=== PATIENT | female | born 1995 | race Caucasian/White ===

== ENCOUNTER 2020-02-18 09:45 | Outpatient (REF) | payer OTHER, SELFPAY ==
[2020-02-18 15:11] LABS: Alanine Aminotransferase 18 U/L (0-31); Albumin Level 4.6 g/dL (3.5-5.0); Alkaline Phosphatase 40 U/L (39-117); Anion Gap 12 (12-20); Aspartate Amino Transferase 13 U/L (5-31); Bilirubin Total 1.1 mg/dL (0.0-1.0); Blood Urea Nitrogen 13 mg/dL (9-16); Calcium 9.6 mg/dL (8.4-10.2); Carbon Dioxide 26 mmol/L (22-29); Chloride 107 mmol/L (96-108); Cholesterol 160 mg/dL; Estimated Glomerular Filt Rate > 60; Glucose Fasting 94 mg/dL (60-99); HDL Cholesterol 34 mg/dL; LDL Cholesterol Calculated 115 mg/dl; Potassium 4.6 mmol/l (3.3-5.1); Sodium 140 mmol/L (135-145); Total Protein 7.3 g/dL (6.5-8.0); Triglycerides 55 mg/dL
[2020-02-18 15:31] LABS: TSH reflex Free T4 0.66 mIU/mL (0.32-4.0)
[2020-02-18 15:47] LABS: Syphilis Screen Nonreactive (Nonreactive)
[2020-02-21 08:10] LABS: HBS Num1 15.69 mIU/mL (0-7.99); HBc Num1 0.07 S/CO (0.00-0.79); HBsAGNum1 0.22 S/CO (0.00-0.99); HIV AB/AG Nonreactive (Nonreactive); HIV Num 1 0.06 S/CO (0.00-0.99); Hepatitis B Core Antibody Nonreactive (Nonreactive); Hepatitis B Surface Antigen Negative (Negative); ~Hepatitis B Surface Antibody REACTIVE (Nonreactive)
[2020-02-21 08:13] LABS: ~Hepatitis C Antibody Nonreactive (Nonreactive)
[2020-02-21 12:09] LABS: TSpotTB POSITIVE
== END 2020-02-18 09:46 | disposition home or self-care (01) ==
LOC: HO.WFDLDS 09:45
PROVIDERS: PCP Family Medicine; Visit Provider Family Medicine
DX: Z00.00 Encounter for general adult medical examination without abnormal findings (principal); Z11.3 Encounter for screening for infections with a predominantly sexual mode of transmission; Z11.4 Encounter for screening for human immunodeficiency virus [HIV]; Z11.1 Encounter for screening for respiratory tuberculosis
CPT/HCPCS: 36415; 80053; 80061; 84443; 85025; 86481; 86704; 86706; 86780; 86803; 87340; 87389

== ENCOUNTER 2020-02-29 12:40 | Outpatient (REF) | payer OTHER, SELFPAY ==
--- NOTE | 2020-02-29 12:47 | XR_ITS ---
EXAMINATION: XR CHEST CLINICAL INFORMATION: Nonspecific reaction to cell mediated immunity COMPARISON: None TECHNIQUE: 2 views of the chest were obtained. FINDINGS: The cardiomediastinal silhouette is within normal limits. Cony are within normal limits. The lungs are well expanded. There is no focal consolidation, edema, or effusion. No pneumothorax. No acute osseous abnormality. IMPRESSION: No evidence of acute process.
--- NOTE | 2020-02-29 12:48 | XR_ITS ---
EXAMINATION: XR THORACIC SPINE: 3 VIEWS XR LUMBAR SPINE: 3 VIEWS CLINICAL INFORMATION: Back pain and scoliosis COMPARISON: None FINDINGS: No acute fracture or subluxation. Minimal broad C shaped dextroconvex curvature of the thoracolumbar spine centered at T12-L1. Vertebral body heights maintained. Disc spaces preserved. No significant degenerative changes. Sacroiliac joints are symmetric. There may be mild degenerative changes of the synovialized portions of the sacroiliac joints bilaterally. Paraspinal soft tissues unremarkable. IMPRESSION: No acute fracture or subluxation. Minimal broad C-shaped dextroconvex thoracolumbar curvature centered at T12-L1. No significant degenerative changes within the thoracic and lumbar spine. Mild bilateral sacroiliac arthrosis.
== END 2020-02-29 12:41 | disposition home or self-care (01) ==
LOC: HO.XRAY 12:40
PROVIDERS: PCP Family Medicine; Visit Provider Family Medicine
DX: M54.9 Dorsalgia, unspecified (principal); M41.9 Scoliosis, unspecified; R76.12 Nonspecific reaction to cell mediated immunity measurement of gamma interferon antigen response without active tuberculosis
CPT/HCPCS: 71046; 72072; 72100

== ENCOUNTER 2020-03-24 11:00 | Outpatient (RCR) | payer OTHER, SELFPAY | END 2020-06-15 09:49 | disposition other institution (70) | LOC: HO.PTWFD 11:00 | PROVIDERS: Visit Provider Family Medicine | DX: M54.9 Dorsalgia, unspecified (principal); M41.9 Scoliosis, unspecified | CPT/HCPCS: 97014; 97110; 97140; 97162 ==

== ENCOUNTER 2021-08-23 11:48 | Outpatient (REF) | payer OTHER, MEDICAID, SELFPAY ==
[2021-08-23 13:35] LABS: MANUAL DIFF FLAG NO
[2021-08-23 13:39] LABS: Basophils Absolute Auto 0.1 X10*3/uL (0.0-0.2); Basophils Percent Auto 0.7 % (0-2); Eosinophils Absolute Auto 0.2 X10*3/uL (0.0-0.4); Eosinophils Percent Auto 2.3 % (0-4); Hematocrit 40.9 % (37.0-47.0); Hemoglobin 13.7 g/dl (12.0-16.0); Imm Gran Abs Auto 0.02 X10*3/uL (0.00-0.03); Imm Gran Pct Auto 0.3 % (0.0-0.4); Lymphocytes Absolute Auto 2.9 X10*3/uL (1.2-4.9); Lymphocytes Percent Auto 40.1 % (20-40); Mean Corpuscular HGB Conc 33.5 g/dl (31.0-35.0); Mean Corpuscular Hemoglobin 30.2 pg (27.0-33.0); Mean Corpuscular Volume 90.1 fL (80.0-98.0); Mean Platelet Volume 10.7 fL (9.4-12.3); Monocytes Absolute Auto 0.5 X10*3/uL (0.1-1.2); Monocytes Percent Auto 6.7 % (2-11); Neutrophils Absolute Auto 3.6 x10*3/uL (2.0-8.3); Neutrophils Percent Auto 49.9 % (45-73); Platelet Count 324 X10*3/uL (160-400); Red Blood Count 4.54 X10*6/uL (4.20-5.50); White Blood Count 7.3 X10*3/uL (4.8-10.8)
[2021-08-23 13:55] LABS: HCG Quantitative < 2 mIU/mL
[2021-08-23 14:02] LABS: Alanine Aminotransferase 13 U/L (0-31); Albumin Level 4.5 g/dL (3.5-5.0); Alkaline Phosphatase 47 U/L (39-117); Anion Gap 14 (12-20); Aspartate Amino Transferase 13 U/L (5-31); Bilirubin Total 0.8 mg/dL (0.0-1.0); Blood Urea Nitrogen 9 mg/dL (9-16); Carbon Dioxide 24 mmol/L (22-29); Chloride 104 mmol/L (96-108); Estimated Glomerular Filt Rate > 60; Glucose Fasting 89 mg/dL (60-99); Potassium 4.4 mmol/L (3.3-5.1); Sodium 138 mmol/L (135-145); Total Protein 7.4 g/dL (6.5-8.0)
[2021-08-23 14:42] LABS: Appearance Urine CLEAR; Color Urine YELLOW; Glucose Urine UA NEG (NEG); Leukocyte Esterase Urine NEG (NEG); Nitrite Urine NEG (NEG); PH 6.5 (5.0-8.0); Urine Blood TRACE (NEG); Urine Ketones NEG (NEG); Urine Protein NEG (NEG-TRACE)
[2021-08-23 14:56] LABS: Mucus Urine TRACE /LPF; Squamous Epithelial Cell Urine TRACE /LPF; WBC Urine 0 /HPF (0-4)
[2021-08-23 15:08] LABS: INTERNATIONAL NORM RATIO 1.1 (0.9-1.1); Prothrombin Time 12.4 SEC (9.9-13.0)
[2021-08-23 15:10] LABS: Partial Thromboplastin Time 35.8 SEC (24.1-38.0)
[2021-08-24 08:22] LABS: HIV AB/AG Nonreactive (Nonreactive); HIV Num 1 0.06 S/CO (0.00-0.99)
== END 2021-08-23 11:49 | disposition home or self-care (01) ==
LOC: HO.WFDLDS 11:48
PROVIDERS: Visit Provider Hospitalist
DX: Z01.818 Encounter for other preprocedural examination (principal); Z11.4 Encounter for screening for human immunodeficiency virus [HIV]
CPT/HCPCS: 36415; 80053; 81001; 81003; 84702; 85025; 85610; 85730; 87389

== ENCOUNTER 2022-09-27 10:27 | Outpatient (REF) | payer OTHER, SELFPAY ==
[2022-09-27 13:59] LABS: Appearance Urine Cloudy; Color Urine Yellow; Glucose Urine UA Negative (Negative); Leukocyte Esterase Urine Moderate (2+) (Negative); Nitrite Urine Negative (Negative); PH 5.5 (5.0-9.0); UMIC TRIGGER UACC YES; Urine Blood Negative (Negative); Urine Ketones Negative (Negative); Urine Protein Negative (Neg-Trace)
[2022-09-27 14:03] LABS: Bacteria Urine 3+ (None Seen); Hyaline Casts Urine 0-2 /LPF (0-2); UACC Culture Trigger YES; WBC Urine 21-50 /HPF (0-5)
== END 2022-09-27 10:28 | disposition home or self-care (01) ==
LOC: HO.LAB 10:27
PROVIDERS: Visit Provider Nurse Practitioner Family
DX: R39.9 Unspecified symptoms and signs involving the genitourinary system (principal)
CPT/HCPCS: 81001; 87086; 87088; 87186

== ENCOUNTER 2023-03-31 09:58 | Outpatient (AMB) | payer OTHER, SELFPAY ==
--- NOTE | 2023-03-31 10:09 | A.OFFPC_ITS ---
Vital Signs 03/31/23 10:10 Height 5 ft 1 in Weight 142 lb 6 oz BMI 26.9 BP 100/64 Blood Pressure Location Lt brachial Position Sitting Respiration 12 Pulse 83 Pulse Source Pulse Oximeter Pulse Oximetry (%) 98 Oxygen Delivery Method Room Air Intake Visit Reasons: discuss asthma Intake Note: Patient is here for her asthma. She needs refills on her inhalers. Patient would like to talk about nebulizer, and would like a flu shot today. Allergies No Known Allergies Allergy (Verified 03/31/23 10:23) Medication List - Last Reconciled 03/31/23 by Sandee Alvarado CNP albuterol sulfate 90 mcg/actuation (Ventolin HFA) 2 puffs inhalation Q4-6H PRN 30 days albuterol sulfate 90 mcg/actuation (ProAir HFA) 1 puff inhalation QID PRN citalopram 30 mg (1.5 x 20 mg) PO DAILY 30 days clonazepam 0.5 mg PO DAILY PRN 30 days cyclobenzaprine 10 mg PO BID PRN 30 days fluticasone propionate 110 mcg/actuation (Flovent HFA) 1 puff inhalation BID phenazopyridine (Pyridium) 100 mg PO TID PRN 2 days Tobacco use date assessed: 03/31/23 Dental Screening Dental Screen Date: 03/31/23 Did you have a dental visit in the last 12 months?: Yes Did you have a dental problem in the last 6 months where you did not have access to dental care?: No Was dental information given to patient?: Patient has dentist HPI HPI Comments History of Present Illness Details 27-year-old female presents for asthma f low-up. She requests refills on all of her inhalers. She also requests an order for albuterol via nebulizer treatment. She notes that she ran out of both proair and flovent inhalers for 4 weeks. Her asthma symptoms worsened and she was evaluated [facility] ED 3 days ago, was given an albuterol nebulizer treatment and prescribed proair. She notes that her symptoms have significantly improved since she started using the inhaler. He also notes that she her asthma also worsened for 2 week in January and she was out of work for 2 weeks. 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 She offers no complaints and denies acute symptoms this time. She requests the flu vaccine. 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 Father No problems noted. Social History Housing: Apartment Alcohol intake: never Patient Tobacco Use Status: Never used Tobacco e-Cigarette/Vaping Use: Never Used Second Hand Smoke Exposure: No service: No Current occupational status: employed and unemployed Current occupational exposures/hazards: No Cognitive needs: No Hearing needs: No Vision needs: No Questionnaire Thrive Questionnaire Date Thrive assessed: 09/27/22 LAUREN-7 AMB Questionnaire LAUREN-7 Date LAUREN - 7 assessed: 09/27/22 Source: Developed by Drs. Ross Rojas, Ora Granda, Fabián Wells and colleagues, with an educational lev from [employer]. ACT Questionnaire In the past 4 weeks, how much of the time did your asthma keep you from getting as much done at work, school or at home?: Some of the time During the past 4 weeks, how often have you had shortness of breath?: More than once a day During the past 4 weeks, how often did your asthma symptoms wake you up at night or earlier than usual in the morning?: Once a week During the past 4 weeks, how often have you had to use your rescue inhaler or nebulizer medication?: Once a week or less (used 3 times in the past 4 weeks.) How would you rate your asthma control during the past 4 weeks?: Somewhat controlled ACT Interpretation: Positive Score: 14 Review of Systems Const Details: Const Denies chills, Denies fatigue, Denies fever(s), Denies headache(s) and Denies weakness ENT Denies dizziness and Denies headache(s) Card Denies chest pain, Denies lightheadedness, Denies dyspnea and Denies other (Palpitations) Resp Denies cough, Denies dyspnea, Denies wheezing and Denies other ( shortness of breath) GI Denies abdominal pain, Denies melena, Denies hematochezia, Denies change in bowel habits, Denies dyspepsia and Denies nausea Denies hematuria and Denies dysuria Musc Denies abnormal gait, Denies myalgias, Denies arthralgias, Denies numbness and Denies tingling Skin/Breast Denies rash, Denies unusual bruising and Denies wounds Neuro Denies abnormal gait, Denies dizziness, Denies headache(s), Denies memory loss, Denies numbness, Denies Sensory deficit (Neuro), Denies tingling and Denies weakness Psych Denies anxiety, Denies depression, Denies memory loss Endo Denies cold intolerance, Denies fatigue, Denies heat intolerance, Denies polydipsia and Denies polyuria Aller/Immun Denies wheezing Physical exam (Primary Care) Vital Signs: Last Vital Signs Pulse 83 03/31/23 10:10 Resp 12 03/31/23 10:10 BP 100/64 03/31/23 10:10 Pulse Ox 98 03/31/23 10:10 Oxygen Delivery Method Room Air 03/31/23 10:10 BMI result Body Mass Index 26.9 Tobacco/Smoking Status: Tobacco use Status Tobacco use date assessed 03/31/23 03/31/23 10:22 Patient Tobacco Use Status Never used Tobacco 03/31/23 10:22 e-Cigarette/Vaping Use Never Used 03/31/23 10:22 Thrive Assessment: Date of Thrive Assessment Date Thrive assessed 09/27/22 03/31/23 10:22 Const Other: General: no acute distress and well developed Nutritional Appearance: well nourished Orientation/consciousness: patient oriented x3 HENDC Head: Yes normocephalic and Yes atraumatic Eyes General: appearance normal, both eyes and all related structures Pupils: Equal, round and reactive pupils present EOM: EOMs intact bilaterally Resp Effort & Inspection: normal respiratory effort Auscultation: clear to auscultation bilaterally Cardio Rate: regular rate Rhythm: regular rhythm Heart sounds: S1 normal heart sound present, S2 normal heart sound present, no gallops, no murmurs and no rubs GI Palpation (GI): No Abdominal aortic bruit present, Soft to palpation, nontender, No hepatosplenomegaly present and No Rebound tenderness present Auscultation: normal bowel sounds General: Yes no CVA tenderness Back/Spine/Pelvis Back: no CVA tenderness Cervical Spine: cervical ROM normal and No Cervical spine tenderness Thoracic/Lumbar Spine: thoraco-lumbar ROM normal, No pain with thoraco-lumbar ROM, No thoracic spinal tenderness and No lumbar spinal tenderness Extrem General: Yes normal to inspection, No edema and No calf tenderness Skin General: warm and dry. Normal skin color. Normal skin turgor Neuro General: patient oriented x3, gait normal and no focal neuro deficit Cranial nerves: Yes Equal, round and reactive pupils present Cognition (Neuro): normal cognition Gait exam (Neuro): Normal gait present Sensory Exam: No Sensory deficit (Neuro) Psych Appearance: grossly normal Affect: normal affect Attitude: cooperative Thought process: Normal thought process present Assessment and Plan Assessment & Plan (1) Moderate persistent asthma: Code(s): J45.40 - Moderate persistent asthma, uncomplicated Plan: Reports recent asthma exacerbation for which she was treated at [facility] ED. She received albuterol nebulizer treatment and was prescribed ProAir. She notes that her symptoms are improving. ACT score is 14, indicates poorly control asthma ProAir and Flovent refilled. Albuterol ordered for nebulizer treatment. Advised to use inhalers and nebulizer treatment as prescribed Work note given Follow-up with PCP in 1-2 months Return sooner with new or worsening symptoms Verbalized understanding and agreed with treatment plan The nurse administered the flu vaccine to the patient Orders: Orders Influenza [id number] Immunization Today Z23 - Encounter for immunization Medications: New flu vacc [id number] 6mos up(PF) 0.5 mL IM ONCE 0.5 mL 0RF Z23 - Encounter for immunization albuterol sulfate 2.5 mg (3 mL) inhalation Q4-6H PRN 90 mL 0RF shortness of breath or wheezing nebulizers As directed 1 ea 0RF Refilled albuterol sulfate 90 mcg/actuation (ProAir HFA) 1 puff inhalation QID PRN 18 grams 4RF shortness of breath or wheezing fluticasone propionate 110 mcg/actuation (Flovent HFA) administer with spacer 1 puff inhalation BID 12 grams 3RF Discontinued albuterol sulfate 90 mcg/actuation (Ventolin HFA) Discontinued Reason: Doctor's Order 2 puffs inhalation Q4-6H 30 days PRN 8.5 grams 4RF shortness of breath or wheezing Coding Level of Care Code Est Pt Level 4 (84341) Diagnoses Moderate persistent asthma J45.40
[2023-03-31 10:10] VITALS: BP 100/64; PULSE 83; RESP 12; O2SAT 98; BMI 26.9
== END 2023-03-31 10:57 | disposition home or self-care (01) ==
PROVIDERS: PCP Family Medicine; Visit Provider Nurse Practitioner Family
DX: Z23 Encounter for immunization (principal); J45.40 Moderate persistent asthma, uncomplicated
CPT/HCPCS: 90471; 90686; 99214

== ENCOUNTER 2023-06-10 10:17 | Outpatient (AMB) | payer OTHER, SELFPAY ==
[2023-06-10 10:26] VITALS: BP 102/70; PULSE 102; RESP 13; O2SAT 98; BMI 28.0
--- NOTE | 2023-06-10 10:26 | MHC.PC.OV ---
Vital Signs 06/10/23 10:26 Height 5 ft 1 in Weight 148 lb BMI 28.0 BP 102/70 Blood Pressure Location Rt brachial Position Sitting Respiration 13 Pulse 102 H Pulse Source Pulse Oximeter Pulse Oximetry (%) 98 Oxygen Delivery Method Room Air Intake Visit Reasons: Anxiety/med discussion Intake Note: Patient is here to discuss anxiety medication. Patient reports she has vivid dreams about work and is often stressed by her job. Patient reports this has been ongoing since January 2023. Herb Counselor Required: No Accompanied by: Self / Same As Patient Allergies No Known Allergies Allergy (Verified 06/10/23 10:52) Medication List - Last Reconciled 06/10/23 by Cary Swift, [facility]- albuterol sulfate 90 mcg/actuation (ProAir HFA) 1 puff inhalation QID PRN albuterol sulfate 2.5 mg (3 mL) inhalation Q4-6H PRN citalopram 30 mg (1.5 x 20 mg) PO DAILY 30 days clonazepam 0.5 mg PO DAILY PRN 30 days cyclobenzaprine 10 mg PO BID PRN 30 days fluticasone propionate 110 mcg/actuation (Flovent HFA) 1 puff inhalation BID nebulizers As directed phenazopyridine (Pyridium) 100 mg PO TID PRN 2 days Tobacco use date assessed: 06/10/23 HPI HPI Comments History of Present Illness Details Here today with complaints of anxiety and uncontrolled asthma. Stressful job. Feels drained mentally. 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 Was taking Celexa 30 mg in the past, ran out of refills a few weeks ago. Admits it was helping her sleep, but does not help w/ the nightmares. Sister reports hearing her shout in sleep. Not active w/ counselor at this time. However she is interested. She also admits to drinking wine to help her go to sleep and to help deal with her emotions. She has stopped doing this as she knows it is not healthy. Denies SI and HI. Asthma - feels using Albuterol more. now 2x/day. Thinks stress is triggering her asthma. Reports she is taking her daily maintenance inhaler as directed. Has good benefit from albuterol. Using nebulizer infrequently. 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 Father No problems noted. Brother Substance use disorder Mental health disorder Social History Household Members: Children Household Members Other:: 1 son Both parents involved: No Caregiver staying overnight: No Housing: Apartment Are you a primary hospice care transitions coordinator to a significant other at home: No Do you presently have visiting nurse or other home services: No 75 years or older and lives alone: No Alcohol intake: never Patient Tobacco Use Status: Never used Tobacco e-Cigarette/Vaping Use: Never Used Second Hand Smoke Exposure: No Use of substances other than those prescribed or required for medical reasons: No Have you been hit, kicked, punched, or otherwise hurt by someone within the past year? 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 1. Little interest or pleasure in doing things: nearly every day 2. Feeling down, depressed, or hopeless: several days 3. Trouble falling or staying asleep, or sleeping too much: nearly every day 4. Feeling tired or having little energy: nearly every day 5. Poor appetite or overeating: several days 6. Feeling bad about yourself - or that you are a failure or have let yourself or your family down: not at all 7. Trouble concentrating on things, such as reading the newspaper or watching television: nearly every day 8. Moving or speaking so slowly that other people could have noticed. Or the opposite - being so fidgety or restless that you have been moving around a lot more than usual: not at all 9. Thoughts that you would be better off or of hurting yourself in some way: not at all Total score: 14 Depression Screening Interpretation: Positive Depression Screening Done: Yes 43504 - PHQ-9 Billing: Yes Source: Developed by Drs. Ross Rojas, Ora Granda, Fabián Wells and colleagues, with an educational lev from [employer]. Thrive Questionnaire Date Thrive assessed: 06/10/23 I am a: Patient What is your living situation today?: I have a steady place to live Within the past 12 months, did the food you bought not last and you didn't have the money to get more?: Never true Within the past 12 months, did you worry whether your food would run out before you got money to buy more?: Never true Do you have trouble paying for medicines?: No Do you have trouble getting transportation to medical appointments?: No Do you have trouble paying your heating and electricity bill?: No Do you have trouble taking care of your child, family member or friend?: No Do you have trouble with day-to-day activities such as bathing, preparing meals, shopping, managing finances, etc.?: No Are you currently unemployed and looking for a job?: No Are you interested in more education?: No Please select the resources that you would like help with: None Currently or been in a relationship where the following occur: no concerns reported THRIVE Score: 0 AUDIT C Alcohol Use Questionnaire (AUDIT-C) 1. How often do you have a drink containing alcohol?: Never 3. How often do you have six or more drinks on one occasion?: Never Total Score: 0 LAUREN-7 AMB Questionnaire LAUREN-7 Date LAUREN - 7 assessed: 06/10/23 Feeling nervous, anxious, or on edge: 3 = Nearly every day Not being able to stop or control worryin = Not at all Worrying too much about different things: 3 = Nearly every day Trouble relaxin = Nearly every day Being so restless that it is hard to sit still: 3 = Nearly every day Becoming easily annoyed or irritable: 3 = Nearly every day Feeling afraid as if something awful might happen: 0 = Not at all Total LAUREN-7 score (0-4 normal; 5-9 mild; 10-14 moderate; 15-21 severe): 15 Source: Developed by Drs. Ross Rojas, Ora Granda, Fabián Wells and colleagues, with an educational lev from [employer]. LAUREN-7 Assessment Billing LAUREN-7 Assessment Tool: LAUREN-7 Assessment 41966 ACT Questionnaire In the past 4 weeks, how much of the time did your asthma keep you from getting as much done at work, school or at home?: Most of the time During the past 4 weeks, how often have you had shortness of breath?: More than once a day During the past 4 weeks, how often did your asthma symptoms wake you up at night or earlier than usual in the morning?: 2-3 nights a week During the past 4 weeks, how often have you had to use your rescue inhaler or nebulizer medication?: 1-2 times a week How would you rate your asthma control during the past 4 weeks?: Somewhat controlled ACT Interpretation: Positive Score: 10 Review of Systems Const All systems reviewed & are unremarkable except as noted in HPI and below Physical exam (Primary Care) Vital Signs: Last Vital Signs Pulse 102 H 06/10/23 10:26 Resp 13 06/10/23 10:26 BP 102/70 06/10/23 10:26 Pulse Ox 98 06/10/23 10:26 Oxygen Delivery Method Room Air 06/10/23 10:26 BMI result Body Mass Index 28.0 Tobacco/Smoking Status: Tobacco use Status Tobacco use date assessed 06/10/23 06/10/23 10:33 Patient Tobacco Use Status Never used Tobacco 06/10/23 10:35 e-Cigarette/Vaping Use Never Used 06/10/23 10:35 PHQ-9: PHQ-9 Score PHQ-9: Total score 14 06/10/23 10:33 Depression Screening Interpretation: Positive Thrive Assessment: Date of Thrive Assessment Date Thrive assessed 06/10/23 06/10/23 10:37 Currently or been in a relationship where the following occur: no concerns reported Const Other: awake alert cooperative LS CTAB RRR Mood and affect appropriate for situation, future oriented. Assessment and Plan Assessment & Plan (1) Depression with anxiety: Code(s): F41.8 - Other specified anxiety disorders (2) Moderate persistent asthma: Code(s): J45.40 - Moderate persistent asthma, uncomplicated Qualifiers: Asthma complication type: uncomplicated Qualified Code(s): J45.40 - Moderate persistent asthma, uncomplicated Plan She is interested in seeking a community counselor. Nurse navigator referral placed. I have also encouraged her to work with her employer's [employer] as this may be helpful in regards to the stressful situations at work. I have restarted her on Celexa 30 mg which was her previous dosing that she said she tolerated well without side effects. In addition I have prescribed cyproheptadine to help with her sleep and nightmares. Starting with a 4 mg dose but can up titrate to 8 mg if necessary. This medication should have low side effect profile for the patient. I have advised for her follow-up in 4 weeks to see how effective the medication has been for her. In regards to her asthma despite the ACT score of 10 I do not think her asthma is as uncontrolled as she reports. I do think she has periods of hyperventilation in the setting of stress and anxiety. When mentioned this to her she agrees. Therefore at this time I think that she should continue her maintenance inhaler and p.r.n. use of albuterol. Educated that albuterol may increase anxiety symptoms therefore she would only use when she really feels her asthma is flaring. In the 4 week follow-up the asthma should be reviewed again. Total time spent caring for the patient today was 60 minutes. This includes time spent before the visit reviewing the chart, time spent during the visit, and time spent after the visit on documentation Orders: Referrals Nurse Navigator Referral F41.8 - Other specified anxiety disorders Medications: New cyproheptadine 4 mg PO BEDTIME 30 days PRN 30 tabs 1RF insomnia and nightmares Refilled citalopram 30 mg (1.5 x 20 mg) PO DAILY 30 days 45 tabs 1RF Coding Level of Care Code Est Pt Level 5 (12003) Diagnoses Depression with anxiety F41.8 Moderate persistent asthma without complication J45.40 Asthma complication type: uncomplicated Additional Codes LAUREN-7 Assessment Billing - LAUREN-7 Assessment Tool: LAUREN-7 Assessment 22793 ([id number])
== END 2023-06-10 12:57 | disposition home or self-care (01) ==
PROVIDERS: PCP Family Medicine; Visit Provider Nurse Practitioner Family
DX: J45.40 Moderate persistent asthma, uncomplicated (principal); F41.8 Other specified anxiety disorders
CPT/HCPCS: 96127; 99215

== ENCOUNTER 2023-08-19 11:17 | Outpatient (AMB) | payer OTHER, SELFPAY ==
[2023-08-19 11:35] VITALS: BP 108/64; PULSE 78; RESP 13; TEMP 36.4; O2SAT 99; BMI 27.2
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
== END 2023-08-19 12:45 | disposition home or self-care (01) ==
PROVIDERS: PCP Family Medicine; Visit Provider Nurse Practitioner Family
DX: F41.8 Other specified anxiety disorders (principal)
CPT/HCPCS: 96127; 99214

== ENCOUNTER 2023-08-29 09:42 | Outpatient (AMB) | payer OTHER, SELFPAY ==
[2023-08-29 09:50] VITALS: BMI 26.8
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
== END 2023-08-29 11:21 | disposition home or self-care (01) ==
PROVIDERS: PCP Family Medicine; Visit Provider Family Medicine
DX: F41.8 Other specified anxiety disorders (principal)
CPT/HCPCS: 96127; 99213

== ENCOUNTER 2023-10-14 10:22 | Outpatient (AMB) | payer OTHER, SELFPAY ==
[2023-10-14 10:42] VITALS: BP 112/72; PULSE 85; O2SAT 99; BMI 27.7
--- NOTE | 2023-10-14 10:42 | A.OFFPC_ITS ---
Vital Signs 10/14/23 10:42 Height 5 ft 1 in Weight 146 lb 8 oz BMI 27.7 BP 112/72 Blood Pressure Location Lt brachial Position Sitting Pulse 85 Pulse Source Pulse Oximeter Pulse Oximetry (%) 99 Oxygen Delivery Method Room Air Intake Visit Reasons: 6 week f/u anxiety Intake Note: Patient is here to follow up on anxiety today. Allergies No Known Allergies Allergy (Verified 10/14/23 10:44) Medication List - Last Reconciled 10/14/23 by Devaughn Jewell MD albuterol sulfate 90 mcg/actuation (ProAir HFA) 1 puff inhalation QID PRN albuterol sulfate 2.5 mg (3 mL) inhalation Q4-6H PRN buspirone 7.5 mg PO BID 30 days citalopram 40 mg PO DAILY 30 days fluticasone propionate 110 mcg/actuation (Flovent HFA) 1 puff inhalation BID nebulizers As directed Tobacco use date assessed: 10/14/23 Dental Screening Dental Screen Date: 08/19/23 HPI 6 week f/u anxiety HPI Details 28 y/o female presents to f/u anxiety/de pression. Had worsened depression/anxiety since 2022 due to work environment and unsafe work environment. Had recommended a 2 month leave of absence for therapy and for her meds to continue working. PHQ-9 11, LAUREN-7 21 today. She reports she does not feel capable going back to work. 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 Father No problems noted. 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 1. Little interest or pleasure in doing things: several days 2. Feeling down, depressed, or hopeless: several days 3. Trouble falling or staying asleep, or sleeping too much: not at all 4. Feeling tired or having little energy: several days 5. Poor appetite or overeating: several days 6. Feeling bad about yourself - or that you are a failure or have let yourself or your family down: several days 7. Trouble concentrating on things, such as reading the newspaper or watching television: nearly every day 8. Moving or speaking so slowly that other people could have noticed. Or the opposite - being so fidgety or restless that you have been moving around a lot more than usual: nearly every day 9. Thoughts that you would be better off or of hurting yourself in some way: not at all Total score: 11 Depression Screening Interpretation: Positive Depression Screening Done: Yes 75990 - PHQ-9 Billing: Yes Source: Developed by Drs. Ross Rojas, Ora Granda, Fabián Wells and colleagues, with an educational lev from [employer]. Thrive Questionnaire Date Thrive assessed: 06/10/23 LAUREN-7 AMB Questionnaire LAUREN-7 Date LAUREN - 7 assessed: 10/14/23 Feeling nervous, anxious, or on edge: 3 = Nearly every day Not being able to stop or control worryin = Nearly every day Worrying too much about different things: 3 = Nearly every day Trouble relaxin = Nearly every day Being so restless that it is hard to sit still: 3 = Nearly every day Becoming easily annoyed or irritable: 3 = Nearly every day Feeling afraid as if something awful might happen: 3 = Nearly every day Total LAUREN-7 score (0-4 normal; 5-9 mild; 10-14 moderate; 15-21 severe): 21 Source: Developed by Drs. Ross Rojas, Ora Granda, Fabián Wells and colleagues, with an educational lev from [employer]. LAUREN-7 Assessment Billing LAUREN-7 Assessment Tool: LAUREN-7 Assessment 54869 Review of Systems Const Denies chills, Denies fatigue, Denies fever(s), Denies headache(s) and Denies weakness ENT Denies dizziness and Denies headache(s) Card Denies dyspnea Resp Denies cough, Denies dyspnea, Denies wheezing and Denies other (shortness of breath) Musc Denies numbness and Denies tingling Neuro Denies dizziness, Denies headache(s), Denies numbness, Denies tingling and Denies weakness Psych Reports anxiety and Reports depression Endo Denies fatigue Aller/Immun Denies wheezing Physical exam (Primary Care) Vital Signs: Last Vital Signs Pulse 85 10/14/23 10:42 BP 112/72 10/14/23 10:42 Pulse Ox 99 10/14/23 10:42 Oxygen Delivery Method Room Air 10/14/23 10:42 BMI result Body Mass Index 27.7 Tobacco/Smoking Status: Tobacco use Status Tobacco use date assessed 10/14/23 10/14/23 10:57 Patient Tobacco Use Status Never used Tobacco 10/14/23 10:46 e-Cigarette/Vaping Use Never Used 10/14/23 10:46 PHQ-9: PHQ-9 Score PHQ-9: Total score 11 10/14/23 11:24 Depression Screening Interpretation: Positive Thrive Assessment: Date of Thrive Assessment Date Thrive assessed 06/10/23 10/14/23 10:46 Const General: well developed; No acute distress Nutritional Appearance: well nourished Orientation/consciousness: patient oriented x3 HENMT Head: Yes normocephalic and Yes atraumatic Eyes General: appearance normal, both eyes and all related structures Pupils: Equal, round and reactive pupils present EOM: EOMs intact bilaterally Resp Effort & Inspection: normal respiratory effort Neuro General: patient oriented x3 and gait normal Cranial nerves: Yes Equal, round and reactive pupils present Psych Affect: normal affect Assessment and Plan Assessment & Plan (1) Depression with anxiety: Code(s): F41.8 - Other specified anxiety disorders Plan: Prior?acu te?adjustment?disorder?at?the?passing?of?her?brother?and?ongoing?depression?seco ndary?to?this. Also?rather?severe?anxiety?due?to?poor?support?systems?at?work?and?being?threate axel?by?1?of?her?clients. Still?has?ongoing?difficulty?with?sleep?and?feeling?safe. She?is?currently?on?citalopram?and?buspirone I?had?referred?her?for?therapy?but?she?has?not?yet?gotten?an?appointment. I?had?given?her?6?week s?off?from?work?to?work?on?her?mental?health?and?use?her?medications. She?is?still?having?issues?with?the?above?symptoms. Mini-mental?status?exam?today?scored?24/30 - difficulty?with?sustained?attenti on?and?focus.??Memory?was?okay. She?will?continue?medication?as?prescribed I?have?asked?the?nurse?navigator?to?see?her?today?in?tried?help?her?get?a?therap ist?as?I feel?that?this?is?a?necessary?part?of?her?treatment. Will?keep?her?out?of?work?another?2?months?to?see?if?therapy?with?medication?can ?resolve?enough?of?her?symptoms?to?get?her?back?to?work?in?her?current?capacity. However,?we?also?disc ussed?that?if?she?is?unable?to?return?to?work?in?her?current?capacity,?she?may?n eed?to?find?another?job.??Patient?understands. Will?fill?out?paperwork?and?give?her?a?letter?to?remain?out?of?work?thro ug?November??with?tentative?return?to?work?date?of?November?. Will?try?to?follow-up?with?her?in?mid?November. Coding Level of Care Code Est Pt Level 3 (35924) Diagnoses Depression with anxiety F41.8 Additional Codes LAUREN-7 Assessment Billing - LAUREN-7 Assessment Tool: LAUREN-7 Assessment 29962 ([id number])
== END 2023-10-14 12:16 | disposition home or self-care (01) ==
PROVIDERS: PCP Family Medicine; Visit Provider Family Medicine
DX: F41.8 Other specified anxiety disorders (principal)
CPT/HCPCS: 96127; 99213

== ENCOUNTER 2023-11-19 12:21 | Outpatient (AMB) | payer OTHER, SELFPAY ==
--- NOTE | 2023-11-19 12:25 | A.OFFPC_ITS ---
Vital Signs 11/19/23 12:36 Weight 145 lb BP 94/60 Blood Pressure Location Rt brachial Position Sitting Respiration 16 Pulse 86 Pulse Source Pulse Oximeter Temp 98.1 F Temp Source Temporal Artery Scan Pulse Oximetry (%) 98 Oxygen Delivery Method Room Air Intake Visit Reasons: Anxiety & Depression Intake Note: patient here follow up for anxiety and depression and want to check on FMLA paperwork. Senior Director Creative Services Required: No Is last menstrual period known: Yes Last menstrual period: 12/11/23 Post menopausal: No Patient : No Allergies No Known Allergies Allergy (Verified 11/19/23 13:04) Medication List - Last Reconciled 11/19/23 by Cary Swift, MANAGER CREAT[employer] SERVICES- albuterol sulfate 90 mcg/actuation (ProAir HFA) 1 puff inhalation QID PRN albuterol sulfate 2.5 mg (3 mL) inhalation Q4-6H PRN buspirone 7.5 mg PO BID 30 days citalopram 40 mg PO DAILY 30 days fluticasone propionate 110 mcg/actuation (Flovent HFA) 1 puff inhalation BID nebulizers As directed Tobacco use date assessed: 10/14/23 Dental Screening Dental Screen Date: 08/19/23 HPI HPI Comments History of Present Illness Details Prior acute adjustment disorder at the passing of her brother and ongoing depression secondary to this. Also rather severe anxiety due to poor support systems at work and being threatened by 1 of her clients. 28-year-old female here today for follow up on anxiety and depression. Currently on a medical leave from her job. Last PCP viist 10/14/23 reviewed She is here today as documentation for her leave needs to be submitted. Reviewed this with her today. There is a document in her chart from the [facility] requesting documentation for the month of September. I have asked the staff to fax the requested information immediately. She also asked for a letter for an emotional support animal. Reports that she lives in a rental property. Spoke to the property management intern who reports she just needs a letter stating that it would be beneficial for her. This letter was provided to her today. She continues to have triggers for her anxiety and continues to feel like she is not able to return to work. She reports tolerance and compliance with the medications. 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 Father No problems noted. Brother Substance use disorder Mental health disorder Social History Household Members: Children Household Members Other:: 1 son Both parents involved: No Caregiver staying overnight: No Housing: Apartment Are you a primary menagerie caretaker to a significant other at home: No Do you presently have visiting nurse or other home services: No 75 years or older and lives alone: No Alcohol intake: never Patient Tobacco Use Status: Never used Tobacco e-Cigarette/Vaping Use: Never Used Second Hand Smoke Exposure: No Patient : No service: No Current occupational status: employed Current occupation: [employer] Current occupational exposures/hazards: No Sexual orientation: Straight/Heterosexual Gender identity: Female Cognitive needs: No (Forgetful) Hearing needs: No Vision needs: No Female Reproductive History Menstrual Date of last menstrual period: 12/11/23 Questionnaire PHQ-9 Over the last 2 weeks, how often have you been bothered by any of the following problems? 1. Little interest or pleasure in doing things: nearly every day 2. Feeling down, depressed, or hopeless: nearly every day 3. Trouble falling or staying asleep, or sleeping too much: nearly every day 4. Feeling tired or having little energy: nearly every day 5. Poor appetite or overeating: nearly every day 6. Feeling bad about yourself - or that you are a failure or have let yourself or your family down: nearly every day 7. Trouble concentrating on things, such as reading the newspaper or watching television: several days 8. Moving or speaking so slowly that other people could have noticed. Or the opposite - being so fidgety or restless that you have been moving around a lot more than usual: not at all 9. Thoughts that you would be better off or of hurting yourself in some way: not at all Total score: 19 37655 - PHQ-9 Billing: Yes Source: Developed by Drs. Ross Rojas, Ora Granda, Fabián Wells and colleagues, with an educational lev from [employer]. Thrive Questionnaire Date Thrive assessed: 06/10/23 LAUREN-7 AMB Questionnaire LAUREN-7 Date LAUREN - 7 assessed: 11/19/23 Feeling nervous, anxious, or on edge: 3 = Nearly every day Not being able to stop or control worryin = Nearly every day Worrying too much about different things: 3 = Nearly every day Trouble relaxin = Nearly every day Being so restless that it is hard to sit still: 1 = Several days Becoming easily annoyed or irritable: 3 = Nearly every day Feeling afraid as if something awful might happen: 3 = Nearly every day Total LAUREN-7 score (0-4 normal; 5-9 mild; 10-14 moderate; 15-21 severe): 19 Source: Developed by Drs. Ross Rojas, Ora Granda, Fabián Wells and colleagues, with an educational lev from [employer]. LAUREN-7 Assessment Billing LAUREN-7 Assessment Tool: LAUREN-7 Assessment 93944 ACT Questionnaire In the past 4 weeks, how much of the time did your asthma keep you from getting as much done at work, school or at home?: Some of the time During the past 4 weeks, how often have you had shortness of breath?: 1-2 times a week During the past 4 weeks, how often did your asthma symptoms wake you up at night or earlier than usual in the morning?: Not at all During the past 4 weeks, how often have you had to use your rescue inhaler or nebulizer medication?: Once a week or less How would you rate your asthma control during the past 4 weeks?: Somewhat controlled Score: 19 Physical exam (Primary Care) Vital Signs: Last Vital Signs Temp 98.1 F 11/19/23 12:36 Pulse 86 11/19/23 12:36 Resp 16 11/19/23 12:36 BP 94/60 11/19/23 12:36 Pulse Ox 98 07/03/24 12:36 Oxygen Delivery Method Room Air 11/19/23 12:36 Tobacco/Smoking Status: Tobacco use Status Tobacco use date assessed 10/14/23 11/19/23 12:28 Patient Tobacco Use Status Never used Tobacco 11/19/23 12:28 e-Cigarette/Vaping Use Never Used 11/19/23 12:28 PHQ-9: PHQ-9 Score PHQ-9: Total score 19 11/19/23 13:01 Thrive Assessment: Date of Thrive Assessment Date Thrive assessed 06/10/23 11/19/23 12:28 Assessment and Plan Assessment & Plan (1) Depression with anxiety: Code(s): F41.8 - Other specified anxiety disorders (2) Acute adjustment disorder: Code(s): F43.20 - Adjustment disorder, unspecified Plan: This note is constructed using voice recognition software. While every effort has been made to ensure accuracy in coal trammer, still errors may have been included Sometimes, these errors may affect the content or meaning of the given sentence . Total time spent caring for the patient today was 30 minutes. This includes time spent before the visit reviewing the chart, time spent during the visit, and time spent after the visit on documentation Coding Level of Care Code Est Pt Level 4 (51709) Diagnoses Depression with anxiety F41.8 Acute adjustment disorder F43.20 Additional Codes LAUREN-7 Assessment Billing - LAUREN-7 Assessment Tool: LAUREN-7 Assessment 47895 ([id number])
[2023-11-19 12:36] VITALS: BP 94/60; PULSE 86; RESP 16; TEMP 36.7; O2SAT 98
== END 2023-11-19 14:52 | disposition home or self-care (01) ==
PROVIDERS: PCP Family Medicine; Visit Provider Nurse Practitioner Family
DX: F41.8 Other specified anxiety disorders (principal); F43.20 Adjustment disorder, unspecified
CPT/HCPCS: 96127; 99214

== ENCOUNTER 2023-12-08 09:38 | Outpatient (AMB) | payer OTHER, SELFPAY ==
--- NOTE | 2023-12-08 09:47 | MHC.PC.OV ---
Vital Signs 12/08/23 09:48 Height 5 ft 1 in Weight 143 lb 6 oz BMI 27.1 BP 110/66 Blood Pressure Location Rt brachial Position Sitting Pulse 80 Pulse Source Pulse Oximeter Pulse Oximetry (%) 100 Oxygen Delivery Method Room Air Intake Visit Reasons: Anxiety?and?depression/?Return to Work Intake Note: Jalyn is a 28 year old female who presents to the office today for anxiety depression. Pt sattes she has been on a wait list for 2 years trying to see a therapist. Pt states she is still having bad anxiety and depression. Pt wants to talk about changing meds. Allergies No Known Allergies Allergy (Verified 12/08/23 09:50) Medication List - Last Reconciled 12/08/23 by Devaughn Jewell MD albuterol sulfate 90 mcg/actuation (ProAir HFA) 1 puff inhalation QID PRN albuterol sulfate 2.5 mg (3 mL) inhalation Q4-6H PRN bupropion HCl 75 mg PO BID 30 days buspirone 7.5 mg PO BID 30 days citalopram 40 mg PO DAILY 30 days fluticasone propionate 110 mcg/actuation (Flovent HFA) 1 puff inhalation BID nebulizers As directed Tobacco use date assessed: 10/14/23 Dental Screening Dental Screen Date: 08/19/23 Did you have a dental visit in the last 12 months?: Yes Did you have a dental problem in the last 6 months where you did not have access to dental care?: No Was dental information given to patient?: Patient has dentist HPI Anxiety?and?depression/?Return to Work HPI Details 28 y/o female presents to f/u anxiety/depression and determine return to work status. PHQ-9 19, LAUREN-7 19 today. Has not seen a therapist yet and reports difficulty finding one. She is on buspirone 7.5mg b.i.d, citalopram 40mg daily. She reports medication regimen has not been helping much. 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 Father No problems noted. 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 1. Little interest or pleasure in doing things: nearly every day 2. Feeling down, depressed, or hopeless: nearly every day 3. Trouble falling or staying asleep, or sleeping too much: nearly every day 4. Feeling tired or having little energy: nearly every day 5. Poor appetite or overeating: nearly every day 6. Feeling bad about yourself - or that you are a failure or have let yourself or your family down: nearly every day 7. Trouble concentrating on things, such as reading the newspaper or watching television: several days 8. Moving or speaking so slowly that other people could have noticed. Or the opposite - being so fidgety or restless that you have been moving around a lot more than usual: not at all 9. Thoughts that you would be better off or of hurting yourself in some way: not at all Total score: 19 85992 - PHQ-9 Billing: Yes Source: Developed by Drs. Ross Rojas, Ora Granda, Fabián Wells and colleagues, with an educational lev from [employer]. Thrive Questionnaire Date Thrive assessed: 06/10/23 I am a: Patient What is your living situation today?: I have a steady place to live Within the past 12 months, did the food you bought not last and you didn't have the money to get more?: Never true Within the past 12 months, did you worry whether your food would run out before you got money to buy more?: Never true Do you have trouble paying for medicines?: No Do you have trouble getting transportation to medical appointments?: No Do you have trouble paying your heating and electricity bill?: No Do you have trouble taking care of your child, family member or friend?: No Do you have trouble with day-to-day activities such as bathing, preparing meals, shopping, managing finances, etc.?: No Are you currently unemployed and looking for a job?: No Are you interested in more education?: No Please select the resources that you would like help with: None THRIVE Score: 0 AUDIT C Alcohol Use Questionnaire (AUDIT-C) 1. How often do you have a drink containing alcohol?: Never 3. How often do you have six or more drinks on one occasion?: Never Total Score: 0 LAUREN-7 AMB Questionnaire LAUREN-7 Date LAUREN - 7 assessed: 11/19/23 Feeling nervous, anxious, or on edge: 3 = Nearly every day Not being able to stop or control worryin = Nearly every day Worrying too much about different things: 3 = Nearly every day Trouble relaxin = Nearly every day Being so restless that it is hard to sit still: 1 = Several days Becoming easily annoyed or irritable: 3 = Nearly every day Feeling afraid as if something awful might happen: 3 = Nearly every day Total LAUREN-7 score (0-4 normal; 5-9 mild; 10-14 moderate; 15-21 severe): 19 Source: Developed by Drs. Ross Rojas, Ora Granda, Fabián Wells and colleagues, with an educational lev from [employer]. LAUREN-7 Assessment Billing LAUREN-7 Assessment Tool: LAUREN-7 Assessment 32704 Review of Systems Const Denies chills, Denies fatigue, Denies fever(s), Denies headache(s) and Denies weakness ENT Denies dizziness and Denies headache(s) Card Denies chest pain, Denies lightheadedness, Denies dyspnea and Denies other (Palpitations) Resp Denies cough, Denies dyspnea, Denies wheezing and Denies other ( shortness of breath) Musc Denies numbness and Denies tingling Neuro Denies dizziness, Denies headache(s), Denies numbness, Denies tingling, Denies paresthesias and Denies weakness Psych Reports anxiety and Reports depression Endo Denies fatigue Aller/Immun Denies wheezing Physical exam (Primary Care) Vital Signs: Last Vital Signs Pulse 80 12/08/23 09:48 BP 110/66 12/08/23 09:48 Pulse Ox 100 12/08/23 09:48 Oxygen Delivery Method Room Air 12/08/23 09:48 BMI result Body Mass Index 27.1 Tobacco/Smoking Status: Tobacco use Status Tobacco use date assessed 10/14/23 12/08/23 09:53 Patient Tobacco Use Status Never used Tobacco 12/08/23 09:53 e-Cigarette/Vaping Use Never Used 12/08/23 09:53 PHQ-9: PHQ-9 Score PHQ-9: Total score 19 12/08/23 09:53 Thrive Assessment: Date of Thrive Assessment Date Thrive assessed 06/10/23 12/08/23 09:53 Const General: no acute distress and well developed Nutritional Appearance: well nourished Orientation/consciousness: patient oriented x3 [facility]: Yes normocephalic and Yes atraumatic Eyes General: appearance normal, both eyes and all related structures Pupils: Equal, round and reactive pupils present EOM: EOMs intact bilaterally Resp Effort & Inspection: normal respiratory effort Auscultation: clear to auscultation bilaterally Cardio Rate: regular rate Rhythm: regular rhythm Heart sounds: S1 normal heart sound present, S2 normal heart sound present, no gallops, no murmurs and no rubs Neuro General: patient oriented x3 and gait normal Cranial nerves: Yes Equal, round and reactive pupils present Psych Affect: Anxious affect present Assessment and Plan Assessment & Plan (1) Depression with anxiety: Code(s): F41.8 - Other specified anxiety disorders Plan: Ongoing?anxiety?and?depression?which?begin?with?the??of?her?brother?then?exacerbated?by?severe?work?stressors. Currently?unable?to?work. Has?not?been?able?to?get?a?therapist?in?a?timely?fashion. Will?request?direct?consults?by?[facility]?outpatient?psychiatry?group Will?advise?she?stay?out?of?work?another?3?months?while?they?schedule?her?and?evaluate?her. Citalopram?with?buspirone?alone?is?not?managing?her?symptoms. Adding?bupropion Orders: Referrals Psychiatry Outpatient Consultation Service F41.8 - Other specified anxiety disorders Medications: New bupropion HCl 75 mg PO BID 30 days 60 tabs 1RF Coding Level of Care Code Est Pt Level 3 (74542) Diagnoses Depression with anxiety F41.8 Additional Codes LAUREN-7 Assessment Billing - LAUREN-7 Assessment Tool: LAUREN-7 Assessment 26736 ([id number])
[2023-12-08 09:48] VITALS: BP 110/66; PULSE 80; O2SAT 100; BMI 27.1
== END 2023-12-08 10:11 | disposition home or self-care (01) ==
PROVIDERS: PCP Family Medicine; Visit Provider Family Medicine
DX: F41.8 Other specified anxiety disorders (principal)
CPT/HCPCS: 99213

== ENCOUNTER 2023-12-19 12:52 | Outpatient (AMB) | payer OTHER, SELFPAY ==
--- NOTE | 2023-12-19 13:02 | A.OFFPC_ITS ---
Vital Signs 12/19/23 13:03 Height 5 ft 1 in Weight 143 lb 4 oz BMI 27.1 BP 110/60 Blood Pressure Location Lt brachial Position Sitting Pulse 85 Pulse Source Pulse Oximeter Pulse Oximetry (%) 98 Oxygen Delivery Method Room Air Intake Visit Reasons: annual physcial Intake Note: Patient is here today for a physical. 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 Heating Unit Mechanic: Not Required per policy Accompanied by: Self / Same As Patient Allergies No Known Allergies Allergy (Verified 12/19/23 13:03) Medication List - Last Reconciled 12/19/23 by Devaughn Jewell MD albuterol sulfate 90 mcg/actuation (ProAir HFA) 1 puff inhalation QID PRN albuterol sulfate 2.5 mg (3 mL) inhalation Q4-6H PRN bupropion HCl 75 mg PO BID 30 days buspirone 7.5 mg PO BID 30 days citalopram 40 mg PO DAILY 30 days fluticasone propionate 110 mcg/actuation (Flovent HFA) 1 puff inhalation BID nebulizers As directed Tobacco use date assessed: 12/19/23 Dental Screening Dental Screen Date: 08/19/23 HPI annual physcial HPI Details 28 y/o female presents for a CPE with f/ u labs and health maintenance. No recent labs to review. Pt reports she has noticed some eye weakness. She denies any double vision. She had last seen an software quality assurance specialist at [facility] last year. She reports GERD about twice a day. 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 Father No problems noted. Brother Substance use disorder Mental health disorder Social History Household Members: Children Household Members Other:: 1 son Both parents involved: No Caregiver staying overnight: No Housing: Apartment Are you a primary wound care technician to a significant other at home: No Do you presently have visiting nurse or other home services: No 75 years or older and lives alone: No Alcohol intake: never Patient Tobacco Use Status: Never used Tobacco e-Cigarette/Vaping Use: Never Used Second Hand Smoke Exposure: No service: No Current occupational status: employed Current occupation: [employer] Current occupational exposures/hazards: No Sexual orientation: Straight/Heterosexual Gender identity: Female Cognitive needs: No (Forgetful) Hearing needs: No Vision needs: No Questionnaire Thrive Questionnaire Date Thrive assessed: 06/10/23 LAUREN-7 AMB Questionnaire LAUREN-7 Date LAUREN - 7 assessed: 11/19/23 Source: Developed by Drs. Ross Rojas, Ora Granda, Fabián Wells and colleagues, with an educational lev from [employer]. Review of Systems Const Denies chills, Denies fatigue, Denies fever(s), Denies headache(s) and Denies weakness Eyes Denies change in vision ENT Denies dizziness, Denies headache(s), Denies hearing loss, Denies nasal congestion, Denies sinus pain, Denies sinus pressure and Denies sore throat Card Denies chest pain, Denies lightheadedness, Denies dyspnea and Denies other (palpitations) Resp Denies cough, Denies dyspnea and Denies wheezing GI Denies abdominal pain, Denies melena, Denies hematochezia, Denies change in bowel habits, Denies dyspepsia and Denies nausea Denies hematuria and Denies dysuria Musc Denies abnormal gait, Denies myalgias, Denies arthralgias, Denies numbness and Denies tingling Skin/Breast Denies rash, Denies unusual bruising and Denies wounds Neuro Denies abnormal gait, Denies dizziness, Denies headache(s), Denies memory loss, Denies numbness, Denies Sensory deficit (Neuro), Denies tingling and Denies weakness Psych Denies anxiety, Denies depression and Denies memory loss Endo Denies cold intolerance, Denies fatigue, Denies heat intolerance, Denies polydipsia and Denies polyuria Julito/Lymph Denies easy bleeding and Denies easy bruising Aller/Immun Denies wheezing Physical exam (Primary Care) Vital Signs: Last Vital Signs Pulse 85 12/19/23 13:03 BP 110/60 12/19/23 13:03 Pulse Ox 98 12/19/23 13:03 Oxygen Delivery Method Room Air 12/19/23 13:03 BMI result Body Mass Index 27.1 Tobacco/Smoking Status: Tobacco use Status Tobacco use date assessed 12/19/23 12/19/23 13:08 Patient Tobacco Use Status Never used Tobacco 12/19/23 13:08 e-Cigarette/Vaping Use Never Used 12/19/23 13:08 Thrive Assessment: Date of Thrive Assessment Date Thrive assessed 06/10/23 12/19/23 13:08 Const General: no acute distress, well developed, alert and awake Nutritional Appearance: well nourished Orientation/consciousness: patient oriented x3 HENMT Head: Yes normocephalic and Yes atraumatic Ears: hearing grossly normal bilaterally and TM's normal bilaterally General nose exam: Normal external nose present and Normal nares present Mouth: Normal oral and palatal mucosa present and moist mucous membranes Teeth and gingiva: dentition normal Throat: Yes posterior oropharynx normal Eyes General: appearance normal, both eyes and all related structures Pupils: Equal, round and reactive pupils present and Pupil accommodation reflex normal EOM: EOMs intact bilaterally Neck Neck: Yes normal visual inspection, Yes no lymphadenopathy and Yes trachea midline Thyroid: Thyroid normal Carotids: no bruits Lymphatic: no lymphadenopathy noted Chest Chest palpation & inspection: normal inspection of the chest Resp Effort & Inspection: normal respiratory effort Auscultation: clear to auscultation bilaterally Cardio Rate: regular rate Rhythm: regular rhythm Heart sounds: S1 normal heart sound present, S2 normal heart sound present, no gallops, no murmurs and no rubs Bruits: no abdominal aortic bruits and no carotid bruits GI Palpation (GI): No Abdominal aortic bruit present, Soft to palpation, nontender, No hepatosplenomegaly present and No Rebound tenderness present Auscultation: normal bowel sounds General: Yes no CVA tenderness Back/Spine/Pelvis Back: no CVA tenderness Cervical Spine: cervical ROM normal and No Cervical spine tenderness Thoracic/Lumbar Spine: thoraco-lumbar ROM normal, No pain with thoraco-lumbar ROM, No thoracic spinal tenderness and No lumbar spinal tenderness Skin Lesions: no lesions Rashes: no rashes Trauma: no lacerations or abrasions Wounds: no wounds Nails: normal Neuro General: patient oriented x3 Cranial nerves: Yes Equal, round and reactive pupils present Cognition (Neuro): normal cognition Gait exam (Neuro): Normal gait present Motor exam (neuro): 5/5 motor strength present throughout Sensory Exam: No Sensory deficit (Neuro) Deep tendon reflexes (DTR's): Right patellar reflex intensity grade: 2+ and Left patellar reflex intensity grade: 2+ Extrem General: Yes normal to inspection and No edema Psych Appearance: grossly normal Affect: normal affect Attitude: cooperative Thought process: Normal thought process present Assessment and Plan Assessment & Plan (1) Annual physical exam: Code(s): Z00.00 - Encounter for general adult medical examination without abnormal findings Plan: 28-year-old?female?presents?for?complete?physical?exam Encouraged?healthy?diet?with?active?lifestyle?and?plenty?of?exercise (2) GERD (gastroesophageal reflux disease): Code(s): K21.9 - Gastro-esophageal reflux disease without esophagitis Plan: Frequent?GERD?symptoms?multiple?times?per?day, every?day. Check?H?pylori Will?give?her?a?script?for?omeprazole. 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 Advise?she?call?her?eye?doctor?and?she?will?do?so. (6) Screening for cervical cancer: Code(s): Z12.4 - Encounter for screening for malignant neoplasm of cervix Plan: Patient?is?followed?by?gag writer Up-to-date?with?Pap?smear. Orders: Orders TSH reflex Free T4 Today Z00.00 - Encounter for general adult medical examination without abnormal findings Sex Hormone Binding Globulin Today L68.0 - Hirsutism Hemoglobin A1c Today L68.0 - Hirsutism, R73.01 - Impaired fasting glucose H pylori Ag Stool Today K21.9 - Gastro-esophageal reflux disease without esophagitis Comprehensive [place]. Panel Fast Today Z00.00 - Encounter for general adult medical examination without abnormal findings Complete Blood Count Auto Diff Today Z00.00 - Encounter for general adult medical examination without abnormal findings Lipid Panel Today Z00.00 - Encounter for general adult medical examination without abnormal findings Microalbumin, Random (w Creat) Today I10 - Essential (primary) hypertension UA and rflx microscopic Today Z00.00 - Encounter for general adult medical examination without abnormal findings Lutenizing Hormone Today L68.0 - Hirsutism Follicle Stimulating Hormone Today L68.0 - Hirsutism Testosterone, Free/Total Today L68.0 - Hirsutism Referrals Gastroenterology Referral K21.9 - Gastro-esophageal reflux disease without esophagitis Medications: New omeprazole 20 mg PO DAILY 30 days 30 caps 0RF budesonide 90 mcg/actuation (Pulmicort Flexhaler) 2 inhalations inhalation Q12H 30 days 1 ea 3RF Coding Level of Care Code Est Pt Level 3 (25727) Est Pt Prev Care 18-39y(11376) Diagnoses Annual physical exam Z00.00 GERD (gastroesophageal reflux disease) K21.9 Hirsutism L68.0 Moderate persistent asthma without complication J45.40 Asthma complication type: uncomplicated Eye muscle weakness H05.829 Screening for cervical cancer Z12.4
[2023-12-19 13:03] VITALS: BP 110/60; PULSE 85; O2SAT 98; BMI 27.1
== END 2023-12-19 15:43 | disposition home or self-care (01) ==
PROVIDERS: PCP Family Medicine; Visit Provider Family Medicine
DX: Z00.00 Encounter for general adult medical examination without abnormal findings (principal); K21.9 Gastro-esophageal reflux disease without esophagitis; L68.0 Hirsutism; J45.40 Moderate persistent asthma, uncomplicated; H05.829 Myopathy of extraocular muscles, unspecified orbit
CPT/HCPCS: 99213; 99395

== ENCOUNTER 2023-12-22 10:35 | Outpatient (REF) | payer OTHER, SELFPAY ==
[2023-12-22 14:12] LABS: MANUAL DIFF FLAG NO
[2023-12-22 14:14] LABS: Basophils Absolute Auto 0.1 X10*3/uL (0.0-0.2); Basophils Percent Auto 0.6 % (0-2); Eosinophils Absolute Auto 0.2 X10*3/uL (0.0-0.4); Hematocrit 40.5 % (37.0-47.0); Hemoglobin 13.6 g/dl (12.0-16.0); Imm Gran Abs Auto 0.02 X10*3/uL (0.00-0.03); Imm Gran Pct Auto 0.2 % (0.0-0.4); Lymphocytes Absolute Auto 2.6 X10*3/uL (1.2-4.9); Lymphocytes Percent Auto 32.8 % (20-40); Mean Corpuscular HGB Conc 33.6 g/dl (31.0-35.0); Mean Corpuscular Hemoglobin 30.1 pg (27.0-33.0); Mean Corpuscular Volume 89.6 fL (80.0-98.0); Mean Platelet Volume 10.9 fL (9.4-12.3); Monocytes Absolute Auto 0.4 X10*3/uL (0.1-1.2); Monocytes Percent Auto 4.9 % (2-11); Neutrophils Absolute Auto 4.8 x10*3/uL (2.0-8.3); Neutrophils Percent Auto 59.5 % (45-73); Platelet Count 352 X10*3/uL (160-400); Red Blood Count 4.52 X10*6/uL (4.20-5.50)
[2023-12-22 14:17] LABS: Appearance Urine Clear; Color Urine Yellow; Glucose Urine UA Negative (Negative); Leukocyte Esterase Urine Small (1+) (Negative); Nitrite Urine Negative (Negative); Specific Gravity - Urine <= 1.005 (1.005-1.025); UMIC TRIGGER UA YES; Urine Blood Negative (Negative); Urine Ketones Negative (Negative); Urine Protein Negative (Neg-Trace)
[2023-12-22 14:27] LABS: Bacteria Urine None Seen (None Seen); Hyaline Casts Urine 0-2 /LPF (0-2); RBC Urine 0-2 /HPF (0-2); Squamous Epithelial Cell Urine 0-2 /HPF (0-2); WBC Urine 0-5 /HPF (0-5)
[2023-12-22 14:31] LABS: Estimated Average Glucose 91 mg/dL; Hemoglobin A1c % 4.8 % (<6.0)
[2023-12-22 14:44] LABS: Alanine Aminotransferase 15 U/L (0-31); Albumin Level 4.3 g/dL (3.5-5.0); Alkaline Phosphatase 47 U/L (39-117); Anion Gap 11 (12-20); Aspartate Amino Transferase 14 U/L (5-31); Bilirubin Total 0.9 mg/dL (0.0-1.0); Blood Urea Nitrogen 9 mg/dL (9-16); Calcium 9.5 mg/dL (8.4-10.2); Carbon Dioxide 24 mmol/L (22-29); Chloride 106 mmol/L (96-108); Cholesterol 149 mg/dL (<200); Estimated Glomerular Filt Rate > 60; Glucose Fasting 86 mg/dL (60-99); HDL Cholesterol 53 mg/dL (>40); LDL Cholesterol Calculated 89 mg/dL (<100); Potassium 4.1 mmol/L (3.3-5.1); Sodium 137 mmol/L (135-145); Total Protein 7.2 g/dL (6.5-8.0); Triglycerides 38 mg/dL (<150)
[2023-12-22 14:49] LABS: TSH reflex Free T4 0.86 uIU/mL (0.32-4.0)
[2023-12-22 14:51] LABS: Creatinine Urine 48.28 mg/dL; Microalbumin Urine < 5.0 mg/L
[2023-12-23 08:08] LABS: Follicle Stimulating Hormone 2.4 mIU/mL; Lutenizing Hormone 1.3 mIU/mL; Sex Hormone Binding Globulin 53 nmol/L (17-124)
[2023-12-26 22:28] LABS: Testosterone, Free 2.2 pg/mL (0.1-6.4); Testosterone, Total 22 ng/dL (2-45)
== END 2023-12-22 10:36 | disposition home or self-care (01) ==
LOC: HO.WFDLDS 10:35
PROVIDERS: Visit Provider Family Medicine
DX: Z00.00 Encounter for general adult medical examination without abnormal findings (principal); I10 Essential (primary) hypertension; R73.01 Impaired fasting glucose; L68.0 Hirsutism
CPT/HCPCS: 36415; 80053; 80061; 81001; 82570; 83001; 83002; 83036; 84270; 84402; 84403; 84443; 85025

== ENCOUNTER 2024-01-12 11:27 | Outpatient (AMB) | payer OTHER, SELFPAY ==
--- NOTE | 2024-01-12 11:32 | MHC.PC.OV ---
Vital Signs 01/12/24 11:38 Height 5 ft 1 in Weight 144 lb 8 oz BMI 27.3 BP 100/60 Blood Pressure Location Rt brachial Position Sitting Respiration 16 Pulse 87 Pulse Source Pulse Oximeter Temp 97.7 F Temp Source Tympanic Pulse Oximetry (%) 98 Oxygen Delivery Method Room Air Intake Visit Reasons: f/u depression/anxiety Intake Note: f/u depression and anxiety Allergies No Known Allergies Allergy (Verified 01/12/24 11:37) Tobacco use date assessed: 12/19/23 Dental Screening Dental Screen Date: 08/19/23 HPI f/u depression/anxiety HPI Details 28 y/o female presents to f/u depression/anxiety. Also f/u CPE-labs. She is on busiprone 7.5mg b.i.d, citalopram 40mg, bupropion 75mg b.i.d. Labs were drawn 12/22/23. Reviewed labs with pt. Triglycerides 38. TC 149. LDL 89. HDL 53. TSH 0.86. PHQ-9 21, BERNARD-7 21. Denies any SI/HI. HPI Comments History of Present Illness Details Documentation assistance for Devaughn Jewell MD, was provided by Kailash Barroso,? Medical Records Coder on 01/12/2024 at 12:05 PM EST. I, Dr. Jewell, have read, observed, and verified documentation. 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 Father No problems noted. Brother Substance use disorder Mental health disorder Social History Household Members: Children Household Members Other:: 1 son Both parents involved: No Caregiver staying overnight: No Housing: Apartment Are you a primary clinical care leader to a significant other at home: No Do you presently have visiting nurse or other home services: No 75 years or older and lives alone: No Alcohol intake: never Patient Tobacco Use Status: Never used Tobacco e-Cigarette/Vaping Use: Never Used Second Hand Smoke Exposure: No service: No Current occupational status: employed Current occupation: [employer] Current occupational exposures/hazards: No Sexual orientation: Straight/Heterosexual Gender identity: Female Cognitive needs: No (Forgetful) Hearing needs: No Vision needs: No Questionnaire PHQ-9 Over the last 2 weeks, how often have you been bothered by any of the following problems? 1. Little interest or pleasure in doing things: nearly every day 2. Feeling down, depressed, or hopeless: nearly every day 3. Trouble falling or staying asleep, or sleeping too much: nearly every day 4. Feeling tired or having little energy: nearly every day 5. Poor appetite or overeating: nearly every day 6. Feeling bad about yourself - or that you are a failure or have let yourself or your family down: nearly every day 7. Trouble concentrating on things, such as reading the newspaper or watching television: nearly every day 8. Moving or speaking so slowly that other people could have noticed. Or the opposite - being so fidgety or restless that you have been moving around a lot more than usual: not at all 9. Thoughts that you would be better off or of hurting yourself in some way: not at all Total score: 21 Depression Screening Interpretation: Positive Depression Screening Done: Yes 41604 - PHQ-9 Billing: Yes Source: Developed by Drs. Ross Rojas, Ora Granda, Fabián Wells and colleagues, with an educational lev from [employer]. Thrive Questionnaire Date Thrive assessed: 06/10/23 BERNARD-7 AMB Questionnaire BERNARD-7 Date BERNARD - 7 assessed: 01/12/24 Feeling nervous, anxious, or on edge: 3 = Nearly every day Not being able to stop or control worryin = Nearly every day Worrying too much about different things: 3 = Nearly every day Trouble relaxin = Nearly every day Being so restless that it is hard to sit still: 3 = Nearly every day Becoming easily annoyed or irritable: 3 = Nearly every day Feeling afraid as if something awful might happen: 3 = Nearly every day Total BERNARD-7 score (0-4 normal; 5-9 mild; 10-14 moderate; 15-21 severe): 21 Source: Developed by Drs. Ross Rojas, Ora Granda, Fabián Wells and colleagues, with an educational lev from [employer]. BERNARD-7 Assessment Billing BERNARD-7 Assessment Tool: BERNARD-7 Assessment 21978 Review of Systems Const Denies chills, Denies fatigue, Denies fever(s), Denies headache(s) and Denies weakness ENT Denies dizziness and Denies headache(s) Card Denies dyspnea Resp Denies cough, Denies dyspnea, Denies wheezing and Denies other (shortness of breath) Musc Denies numbness and Denies tingling Neuro Denies dizziness, Denies headache(s), Denies numbness, Denies tingling and Denies weakness Psych Reports anxiety and Reports depression Endo Denies fatigue Aller/Immun Denies wheezing Physical exam (Primary Care) Vital Signs: Last Vital Signs Temp 97.7 F 01/12/24 11:38 Pulse 87 01/12/24 11:38 Resp 16 01/12/24 11:38 BP 100/60 01/12/24 11:38 Pulse Ox 98 01/12/24 11:38 Oxygen Delivery Method Room Air 01/12/24 11:38 BMI result Body Mass Index 27.3 Tobacco/Smoking Status: Tobacco use Status Tobacco use date assessed 12/19/23 01/12/24 11:33 Patient Tobacco Use Status Never used Tobacco 01/12/24 11:33 e-Cigarette/Vaping Use Never Used 01/12/24 11:33 PHQ-9: PHQ-9 Score PHQ-9: Total score 21 01/12/24 11:45 Depression Screening Interpretation: Positive Thrive Assessment: Date of Thrive Assessment Date Thrive assessed 06/10/23 01/12/24 11:33 Const General: well developed; No acute distress Nutritional Appearance: well nourished Orientation/consciousness: patient oriented x3 HENMT Head: Yes normocephalic and Yes atraumatic Eyes General: appearance normal, both eyes and all related structures Pupils: Equal, round and reactive pupils present EOM: EOMs intact bilaterally Resp Effort & Inspection: normal respiratory effort Neuro General: patient oriented x3 and gait normal Cranial nerves: Yes Equal, round and reactive pupils present Psych Affect: normal affect Assessment and Plan Assessment & Plan (1) Depression with anxiety: Code(s): F41.8 - Other specified anxiety disorders Plan: Patient?had?had?severely?worsening?anxiety?and?depression?in?August.??Bernard?scores?now?at?21?and?PHQ-9?score?at?21,?despite?medication?therapy?and?adjustments?and?so?a?leave?of?absence?was?recommended?as?patient?has?been?unable?to?work. On?08/19/2023,?patient?was?taking?citalopram?30?mg?daily?and?this?was?increased?to?40?mg?daily.??Also?added?buspirone.??She?was?also?on?a?trial?of?clonazepam?0.5?mg?p.r.n.?at?that?time. On?08/29/2023,?she?was?on?citalopram?40?mg?daily?and?buspirone?7.5?mg?b.i.d. On?12/08/2023,?bupropion?75?mg?b.i.d.?was?added?to?her?regimen?of?citalopram?and?buspirone. She?has?been?referred?to?outpatient?psychiatric?consult?service[facility]at[facility]and?has?her?1st?appointment?on?01/15/2024. Symptoms?outside?of?work?include?poor?motivation?and?lack?of?interest?in?activities,?over?sleeping.??Anxious/avoidant?behavior.??Patient?avoids?chores,?Becca's?and?activities.??Avoiding?family/friends.??Easily?distracted?and?difficulty?staying?on?task ?or?with?any?multi?tasking. As?of?today,?I?do?feel?that?although?there?is?distant?sensitive?to?return?to?work?in?her?current?environment,?I?do?not?feel?she?is?ready?to?return?to?work?in?any?environment,?at?least?through?the?recommended?time?of?her?leave?of?absence?in?February.?? She?may?be?able?to?try?working?with?a?new?environment/production team manager?etc.?after?that.??But?currently?has?still?not?gotten?a?therapist?or?psychiatrist?etc.?and?her?meds?have?been?only?partly?helpful?so?far. Will?get?her?back?in?early?February?for?additional?follow-up. (2) Hirsutism: Code(s): L68.0 - Hirsutism Plan: Lab?work?for?initial?workup shows?borderline?elevated?testosterone?level?for?a?female. Sex?hormone?binding?globulin?is?within?normal?range?though?at?the?lower?end. LH?and?FSH?are?okay?and?a?consistent?with?luteal?phase?of?her?menstrual?cycle. Patient?has?issues?with?hirsutism?which?could?be?part?of?a?PCOS?though?that?diagnosis?is?unclear?at?this?time. 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 Coding Level of Care Code Est Pt Level 3 (49346) Diagnoses Depression with anxiety F41.8 Hirsutism L68.0 Additional Codes BERNARD-7 Assessment Billing - BERNARD-7 Assessment Tool: BERNARD-7 Assessment 22441 ([id number])
[2024-01-12 11:38] VITALS: BP 100/60; PULSE 87; RESP 16; TEMP 36.5; O2SAT 98; BMI 27.3
== END 2024-01-12 13:04 | disposition home or self-care (01) ==
PROVIDERS: PCP Family Medicine; Visit Provider Family Medicine
DX: F41.8 Other specified anxiety disorders (principal); L68.0 Hirsutism
CPT/HCPCS: 96127; 99213

== ENCOUNTER 2024-01-15 10:52 | Outpatient (AMB) | payer OTHER, SELFPAY ==
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
== END 2024-01-15 12:06 | disposition home or self-care (01) ==
LOC: HO.HOP 10:52
PROVIDERS: PCP Family Medicine; Visit Provider Clinical Nurse Specialist Psychiatric/Mental Health
DX: F43.10 Post-traumatic stress disorder, unspecified (principal)
CPT/HCPCS: 90792

== ENCOUNTER → 2024-01-15 10:52 | Outpatient (BNVA) | payer OTHER, SELFPAY | PROVIDERS: PCP Family Medicine; Visit Provider Clinical Nurse Specialist Psychiatric/Mental Health | DX: F43.10 Post-traumatic stress disorder, unspecified (principal) | CPT/HCPCS: 90792 ==

== ENCOUNTER → 2024-01-30 16:23 | Outpatient (AMB) | payer OTHER, SELFPAY ==
--- NOTE | 2024-01-30 16:30 | A.OFFPC_ITS ---
Vital Signs 01/30/24 16:33 Height 5 ft 1 in Weight 140 lb 5 oz BMI 26.5 BP 110/60 Blood Pressure Location Rt brachial Position Sitting Respiration 12 Pulse 82 Pulse Source Pulse Oximeter Temp 97.6 F Temp Source Tympanic Pulse Oximetry (%) 99 Oxygen Delivery Method Room Air Intake Visit Reasons: fmla Intake Note: fmla form Allergies No Known Allergies Allergy (Verified 01/30/24 16:30) Tobacco use date assessed: 12/19/23 Dental Screening Dental Screen Date: 08/19/23 HPI fmla HPI Details 28 y/o female presents to f/u anxiety/de pression and FMLA. Had seen psychiatry 01/15/24. They plan to continue celexa, wellbutrin, buspirone. They added clonidine. HPI Comments History of Present Illness Details Documentation assistance for Devaughn Jewell MD, was provided by Kailash Barroso,? Senior Integration Developer on 01/30/2024 at 4:50 PM EST. I, Dr. Jewell, have read, observed, and verified documentation. 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 Father No problems noted. Brother Substance use disorder Mental health disorder Social History Household Members: Children Household Members Other:: 1 son Both parents involved: No Caregiver staying overnight: No Housing: Apartment Are you a primary acute care nurse practitioner to a significant other at home: No Do you presently have visiting nurse or other home services: No 75 years or older and lives alone: No Alcohol intake: never Patient Tobacco Use Status: Never used Tobacco e-Cigarette/Vaping Use: Never Used Second Hand Smoke Exposure: No service: No Current occupational status: employed Current occupation: [employer] Current occupational exposures/hazards: No Sexual orientation: Straight/Heterosexual Gender identity: Female Cognitive needs: No (Forgetful) Hearing needs: No Vision needs: No Questionnaire Thrive Questionnaire Date Thrive assessed: 06/10/23 LAUREN-7 AMB Questionnaire LAUREN-7 Date LAUREN - 7 assessed: 01/12/24 Source: Developed by Drs. Ross Rojas, Ora Granda, Fabián Wells and colleagues, with an educational lev from [employer]. Review of Systems Const Denies chills, Denies fatigue, Denies fever(s), Denies headache(s) and Denies weakness ENT Denies dizziness and Denies headache(s) Card Denies dyspnea Resp Denies cough, Denies dyspnea, Denies wheezing and Denies other (shortness of breath) Musc Denies numbness and Denies tingling Neuro Denies dizziness, Denies headache(s), Denies numbness, Denies tingling and Denies weakness Psych Reports anxiety and Reports depression Endo Denies fatigue Aller/Immun Denies wheezing Physical exam (Primary Care) Vital Signs: Last Vital Signs Temp 97.6 F 01/30/24 16:33 Pulse 82 01/30/24 16:33 Resp 12 01/30/24 16:33 BP 110/60 01/30/24 16:33 Pulse Ox 99 01/30/24 16:33 Oxygen Delivery Method Room Air 01/30/24 16:33 BMI result Body Mass Index 26.5 Tobacco/Smoking Status: Tobacco use Status Tobacco use date assessed 12/19/23 01/30/24 16:35 Patient Tobacco Use Status Never used Tobacco 01/30/24 16:35 e-Cigarette/Vaping Use Never Used 01/30/24 16:35 Thrive Assessment: Date of Thrive Assessment Date Thrive assessed 06/10/23 01/30/24 16:35 Const General: well developed; No acute distress Nutritional Appearance: well nourished Orientation/consciousness: patient oriented x3 HENMT Head: Yes normocephalic and Yes atraumatic Eyes General: appearance normal, both eyes and all related structures Pupils: Equal, round and reactive pupils present EOM: EOMs intact bilaterally Resp Effort & Inspection: normal respiratory effort Neuro General: patient oriented x3 and gait normal Cranial nerves: Yes Equal, round and reactive pupils present Psych Affect: normal affect Assessment and Plan Assessment & Plan (1) Depression with anxiety: Code(s): F41.8 - Other specified anxiety disorders Plan: Ongoing?depression?and?anxiety?with?PTSD Depression?and?anxiety?initially?began?in?06/07/2021?after?the?jalil th?of?her?brother.??I?saw?her?in?08/08/2021. Symptoms?worsened?significantly in?02/05/2023?with?severe?stressors?and?trauma?at?work. Patient?has?been?unable?to?work. She?has?not?had?a?psychiatric?med?p rovider?or?therapist?until?recently. Now?has?medications?and?is?undergoing?treatment?and?therapy. Projected?return?to?work?in?February. 01/07/2024: PHQ-9 = 21 and LAUREN-7=21 MMSE today lost a point each for 3-item recal and serial 7s. Filled out additional paperwork for disability. (2) Post traumatic stress disorder: Code(s): F43.10 - Post-traumatic stress disorder, unspecified Plan: As above Coding Level of Care Code Est Pt Level 3 (82430) Diagnoses Depression with anxiety F41.8 Post traumatic stress disorder F43.10
[2024-01-30 16:33] VITALS: BP 110/60; PULSE 82; RESP 12; TEMP 36.4; O2SAT 99; BMI 26.5
== END ==
PROVIDERS: PCP Family Medicine; Visit Provider Family Medicine
DX: F41.8 Other specified anxiety disorders (principal); F43.10 Post-traumatic stress disorder, unspecified
CPT/HCPCS: 99213

== ENCOUNTER 2024-02-12 11:34 | Outpatient (AMB) | payer OTHER, SELFPAY ==
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
== END 2024-02-12 11:38 | disposition home or self-care (01) ==
LOC: HO.HOP 11:34
PROVIDERS: PCP Family Medicine; Visit Provider Clinical Nurse Specialist Psychiatric/Mental Health
DX: F43.10 Post-traumatic stress disorder, unspecified (principal); F33.1 Major depressive disorder, recurrent, moderate
CPT/HCPCS: 99214

== ENCOUNTER → 2024-02-12 11:34 | Outpatient (BNVA) | payer OTHER, SELFPAY | PROVIDERS: PCP Family Medicine; Visit Provider Clinical Nurse Specialist Psychiatric/Mental Health | DX: F43.10 Post-traumatic stress disorder, unspecified (principal); F33.1 Major depressive disorder, recurrent, moderate; Z71.89 Other specified counseling | CPT/HCPCS: 99212 ==

== ENCOUNTER 2024-03-03 14:21 | Outpatient (AMB) | payer OTHER, SELFPAY ==
--- NOTE | 2024-03-03 14:37 | A.OFFPC_ITS ---
Vital Signs 03/03/24 14:42 Height 5 ft 1 in Weight 144 lb 6 oz BMI 27.3 BP 104/58 L Blood Pressure Location Lt brachial Position Sitting Respiration 14 Pulse 81 Pulse Source Pulse Oximeter Temp 98.4 F Temp Source Temporal Artery Scan Pulse Oximetry (%) 99 Oxygen Delivery Method Room Air Intake Visit Reasons: Follow-up anxiety/depression Intake Note: f/u for anxiety and depression Allergies No Known Allergies Allergy (Verified 01/30/24 16:30) Medication List - Last Reconciled 03/03/24 by Devaughn Jewell MD albuterol sulfate 90 mcg/actuation (ProAir HFA) 1 puff inhalation QID PRN albuterol sulfate 2.5 mg (3 mL) inhalation Q4-6H PRN budesonide 90 mcg/actuation (Pulmicort Flexhaler) 2 inhalations inhalation Q12H 30 days bupropion HCl SR (Wellbutrin SR) 100 mg PO BID buspirone 7.5 mg PO BID 30 days citalopram 40 mg PO DAILY 30 days clonidine HCl 0.1 mg orally take 1/2 tablet at bedtime and may take the additional 1/2 tablet if still awake in one hour; fluticasone propionate 110 mcg/actuation (Flovent HFA) 1 puff inhalation BID nebulizers As directed omeprazole 20 mg PO DAILY 30 days Tobacco use date assessed: 12/19/23 Dental Screening Dental Screen Date: 08/19/23 HPI Follow-up anxiety/depression HPI Details 28 y/o female presents to f/u anxiety/de pression. Had seen psychiatry 02/12/24. They increased wellbutrin to 100mg b.i.d. Pt notes her medication regimen has been helping. She is on wellbutrin as prescribed, citalopram, clonidine, buspirone 7.5mg b.i.d. She has been using clonidine as needed. She notes difficulty sleeping. PHQ-9 21, LAUREN-7 21 today. Has a therapist. HPI Comments History of Present Illness Details Documentation assistance for Devaughn Jewell MD, was provided by Kailash Barroso,Robert Oyster Floater on 03/03/2024 at 2:54 PM EST. I, Dr. Jewell, have read, observed, and verified documentation. 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 Father No problems noted. Brother Substance use disorder Mental health disorder Social History Household Members: Children Household Members Other:: 1 son Both parents involved: No Caregiver staying overnight: No Housing: Apartment Are you a primary youth care professional to a significant other at home: No Do you presently have visiting nurse or other home services: No 75 years or older and lives alone: No Alcohol intake: never Patient Tobacco Use Status: Never used Tobacco e-Cigarette/Vaping Use: Never Used Second Hand Smoke Exposure: No service: No Current occupational status: employed Current occupation: [employer] Current occupational exposures/hazards: No Sexual orientation: Straight/Heterosexual Gender identity: Female Cognitive needs: No (Forgetful) Hearing needs: No Vision needs: No Questionnaire PHQ-9 Over the last 2 weeks, how often have you been bothered by any of the following problems? 1. Little interest or pleasure in doing things: nearly every day 2. Feeling down, depressed, or hopeless: nearly every day 3. Trouble falling or staying asleep, or sleeping too much: nearly every day 4. Feeling tired or having little energy: nearly every day 5. Poor appetite or overeating: nearly every day 6. Feeling bad about yourself - or that you are a failure or have let yourself or your family down: nearly every day 7. Trouble concentrating on things, such as reading the newspaper or watching television: nearly every day 8. Moving or speaking so slowly that other people could have noticed. Or the opposite - being so fidgety or restless that you have been moving around a lot more than usual: not at all 9. Thoughts that you would be better off or of hurting yourself in some way: not at all Total score: 21 Source: Developed by Drs. Ross Rojas, Ora Granda, Fabián Wells and colleagues, with an educational lev from [employer]. Thrive Questionnaire Date Thrive assessed: 06/10/23 I am a: Patient What is your living situation today?: I have a steady place to live Within the past 12 months, did the food you bought not last and you didn't have the money to get more?: Never true Within the past 12 months, did you worry whether your food would run out before you got money to buy more?: Never true Do you have trouble paying for medicines?: No Do you have trouble getting transportation to medical appointments?: No Do you have trouble paying your heating and electricity bill?: No Do you have trouble taking care of your child, family member or friend?: No Do you have trouble with day-to-day activities such as bathing, preparing meals, shopping, managing finances, etc.?: No Are you currently unemployed and looking for a job?: No Are you interested in more education?: No Please select the resources that you would like help with: None Currently or been in a relationship where the following occur: No concerns reported THRIVE Score: 0 AUDIT C Alcohol Use Questionnaire (AUDIT-C) 1. How often do you have a drink containing alcohol?: Never Total Score: 0 LAUREN-7 AMB Questionnaire LAUREN-7 Date LAUREN - 7 assessed: 03/03/24 Feeling nervous, anxious, or on edge: 3 = Nearly every day Not being able to stop or control worryin = Nearly every day Worrying too much about different things: 3 = Nearly every day Trouble relaxin = Nearly every day Being so restless that it is hard to sit still: 3 = Nearly every day Becoming easily annoyed or irritable: 3 = Nearly every day Feeling afraid as if something awful might happen: 3 = Nearly every day Total LAUREN-7 score (0-4 normal; 5-9 mild; 10-14 moderate; 15-21 severe): 21 Source: Developed by Drs. Ross Rojas, Ora Granda, Fabián Wells and colleagues, with an educational lev from [employer]. LAUREN-7 Assessment Billing LAUREN-7 Assessment Tool: LAUREN-7 Assessment [id number] Review of Systems Const Denies chills, Denies fatigue, Denies fever(s), Denies headache(s) and Denies weakness ENT Denies dizziness and Denies headache(s) Card Denies dyspnea Resp Denies cough, Denies dyspnea, Denies wheezing and Denies other (shortness of breath) Musc Denies numbness and Denies tingling Neuro Denies dizziness, Denies headache(s), Denies numbness, Denies tingling and Denies weakness Psych Reports anxiety and Reports depression Endo Denies fatigue Aller/Immun Denies wheezing Physical exam (Primary Care) Vital Signs: Last Vital Signs Temp 98.4 F 03/03/24 14:42 Pulse 81 03/03/24 14:42 Resp 14 03/03/24 14:42 BP 104/58 L 03/03/24 14:42 Pulse Ox 99 03/03/24 14:42 Oxygen Delivery Method Room Air 03/03/24 14:42 BMI result Body Mass Index 27.3 Tobacco/Smoking Status: Tobacco use Status Tobacco use date assessed 12/19/23 03/03/24 14:45 Patient Tobacco Use Status Never used Tobacco 03/03/24 14:45 e-Cigarette/Vaping Use Never Used 03/03/24 14:45 PHQ-9: PHQ-9 Score PHQ-9: Total score 21 03/03/24 14:46 Thrive Assessment: Date of Thrive Assessment Date Thrive assessed 06/10/23 03/03/24 14:45 Currently or been in a relationship where the following occur: No concerns reported Const General: well developed; No acute distress Nutritional Appearance: well nourished Orientation/consciousness: patient oriented x3 HENMT Head: Yes normocephalic and Yes atraumatic Eyes General: appearance normal, both eyes and all related structures Pupils: Equal, round and reactive pupils present EOM: EOMs intact bilaterally Resp Effort & Inspection: normal respiratory effort Neuro General: patient oriented x3 and gait normal Cranial nerves: Yes Equal, round and reactive pupils present Psych Affect: normal affect Coding Level of Care Code Est Pt Level 3 (78248) Diagnoses Major depressive disorder, recurrent, moderate F33.1 Post traumatic stress disorder F43.10 Additional Codes LAUREN-7 Assessment Billing - LAUREN-7 Assessment Tool: LAUREN-7 Assessment [id number] ([id number]) Assessment & Plan Assessment & Plan (1) Major depressive disorder, recurrent, moderate: Code(s): F33.1 - Major depressive disorder, recurrent, moderate Category: Medical Plan: Ongoing?severe?depression?and?anxiety She?is?on?multiple?medications?and the?[facility]?psychiatry?outpatient?clinic?is?now?managing?her?medications She?has?a?therapist?appointment She?has?been?fired?from?her?prior?job?but?remains?disabled. Will?continue?to?consider?her?disabled?for?the?next?2?months?and?follow-up?again ?after?she?has?had?appointments?with?her?new?therapist Encouraged?increasing?exercise Gave?her?a?handout: Factors?that?impact?mental?health Continue?current?medications Trial?some?hydroxyzine?as?needed?for?difficulty?sleeping (2) Post traumatic stress disorder: Code(s): F43.10 - Post-traumatic stress disorder, unspecified Category: Medical Plan: As?above
[2024-03-03 14:42] VITALS: BP 104/58; PULSE 81; RESP 14; TEMP 36.9; O2SAT 99; BMI 27.3
== END 2024-03-03 15:12 | disposition home or self-care (01) ==
PROVIDERS: PCP Family Medicine; Visit Provider Family Medicine
DX: F33.1 Major depressive disorder, recurrent, moderate (principal); F43.10 Post-traumatic stress disorder, unspecified

== ENCOUNTER → 2024-03-03 14:21 | Outpatient (BNVA) | payer OTHER, SELFPAY | PROVIDERS: PCP Family Medicine; Visit Provider Family Medicine | DX: F33.1 Major depressive disorder, recurrent, moderate (principal); F43.10 Post-traumatic stress disorder, unspecified | CPT/HCPCS: 96127; 99212 ==

== ENCOUNTER 2024-05-05 09:35 | Outpatient (AMB) | payer OTHER, SELFPAY ==
--- OUTSIDE RECORDS SUMMARY | 2024-05-05 09:38 | XMS_ITS | Continuity of Care Document ---
Author Name [facility] Organization [facility] Care Team Providers Care Crack Off Person Name Role Phone [facility] Unavailable Unavailable Medications Combined list of outpatient medications from Department of Defense and Veterans Affairs facilities.Medications provided include 1) outpatient medications from the last 15 months, and 2) patient-reported medications. Medication Details Route Status Patient Instructions Prescription Expires Prescription Number Last Dispense Date Ordering Provider Order Date Order Qty Source ALBUTEROL SULFATE HFA (albuterol sulfate), 90 MCG, HFA AER AD, INHALATION, LUPIN [facility]ACE[facility], 8.5 g C ALBUTERO L SULFATE HFA (albuter ol sulfate) , 90 MCG, HFA AER AD, INHALATI ON, LUPIN PHARMACE U, 8.5 g C Start Date: 05/23/21 Status: Ordered Ordered No Facilit y Access ALBUTEROL SULFATE HFA (albuterol sulfate), 90 MCG, HFA AER AD, INHALATION, [facility], 18 g CANISTER Cancele d [id number] : 2023 0 Pharmac y Data Transac tion Service Facilit y ALBUTEROL SULFATE HFA (albuterol sulfate), 90 MCG, HFA AER AD, INHALATION, [facility], 8.5 g CANISTER ALBUTERO L SULFATE HFA (albuter ol sulfate) , 90 MCG, HFA AER AD, INHALATI ON, TEVA [place], 8.5 g CANISTER Start Date: 10/31/20 Status: Ordered Ordered No Facilit y Access AMOXICILLIN (AMOXICILLI N), 875MG, TABLET, ORAL, AUROBINDO PHARM, 100 ea. BOTTLE Active [id number] 4 2023 20 Pharmac y Data Transac tion Service Facilit y BUSPIRONE HCL (buspirone HCl), 7.5 MG, TABLET, ORAL, STRIDES PHARMA, 100 ea. BOTTLE Active [id number] 4 2023 180 Pharmac y Data Transac tion Service Facilit y CITALOPRAM HBR (CITALOPRAM HYDROBROMID E), 20MG, TABLET, ORAL, TORRENT PHARMAC, 500 ea. BOTTLE Cancele d [id number] : 2023 0 Pharmac y Data Transac tion Service Facilit y CITALOPRAM HBR (CITALOPRAM HYDROBROMID E), 20MG, TABLET, ORAL, TORRENT PHARMAC, 500 ea. BOTTLE Active [id number] 4 2023 45 Pharmac y Data Transac tion Service Facilit y CITALOPRAM HBR (CITALOPRAM HYDROBROMID E), 20MG, TABLET, ORAL, TORRENT PHARMAC, 500 ea. BOTTLE Cancele d [id number] : 2023 0 Pharmac y Data Transac tion Service Facilit y CITALOPRAM HBR (CITALOPRAM HYDROBROMID E), 20MG, TABLET, ORAL, TORRENT PHARMAC, 500 ea. BOTTLE Active [id number] 4 2023 45 Pharmac y Data Transac tion Service Facilit y CITALOPRAM HBR (CITALOPRAM HYDROBROMID E), 40MG, TABLET, ORAL, TORRENT PHARMAC, 500 ea. BOTTLE Cancele d [id number] : 2023 0 Pharmac y Data Transac tion Service Facilit y CITALOPRAM HBR (CITALOPRAM HYDROBROMID E), 40MG, TABLET, ORAL, TORRENT PHARMAC, 500 ea. BOTTLE Cancele d [id number] : 2023 0 Pharmac y Data Transac tion Service Facilit y cyclobenzap rine 10 mg oral tablet cycloben zaprine 10 mg oral tablet Start Date: 08/29/20 Status: Ordered Ordered No Facilit y Access CYPROHEPTAD INE HCL (cyprohepta dine HCl), 4 MG, TABLET, ORAL, ZYDUS PHARMACEU, 100 ea. BOTTLE Active [id number] 4 2023 30 Pharmac y Data Transac tion Service Facilit y fluticasone 110 mcg/inh aerosol inhaler fluticas one 110 mcg/inh aerosol inhaler Start Date: 03/09/20 Status: Ordered Ordered No Facilit y Access FLUZONE QUAD (influenza virus vaccine quadrival (6 mos and up)/PF), 60MCG/.5ML, FLUZONE QUAD 1 (influen za virus vaccine quadriva l 1(6 mos and up)/PF), 60MCG/.5 ML, Start Date: 04/02/20 Status: Ordered Ordered No Facilit y Access ibuprofen 800 mg oral tablet ibuprofe n 800 mg oral tablet Start Date: 10/22/20 Status: Ordered Ordered No Facilit y Access medroxyPROG ESTERone 150 mg/mL intramuscul ar suspension medroxyP ROGESTER one 150 mg/mL intramus cular suspensi on Start Date: 01/15/21 Status: Ordered Ordered No Facilit y Access Allergies, Adverse Reactions, Alerts Combined list of allergies from Department of Defense and Veterans Affairs facilities. It does not include entries that were removed or entered in error. Substance Category Reaction Severity Reaction type Status Date Reported Comments Source No Known Allergies Drug allergy (disorder) active 04/29/2019 [facility] Immunizations Combined list of available immunizations from the Department of Defense and Veterans Affairs facilities. Immunization Series Date Given Administered By Site Reaction Lot Number CVX Code Drug Refining Equipment Operator Status Comments Source COVID-19, mRNA, LNP-S, PF, 30 mcg/0.3 mL dose [facility] Not Given COVID-19, mRNA, LNP-S, PF, 30 mcg/0.3 mL dose [facility] influenza, injectable, quadrivalent, preservative free 2019 [facility], () Not Given influenza , injectabl e, quadrival ent, preservat claudia free DoD Vital Signs Combined list of inpatient and outpatient Vital Signs from Department of Defense and Veterans Affairs, ranging from 12 months to all on record, depending upon the facility. Vital Sign Value Date Comments Source No data available for this section Ambulatory Pharmacy Encounters Combined list of: 1) Encounters from Department of Veterans Affairs facilities going back up to thelast 18 months. 2) Encounters from the Department of Defense facilities going back up to 280 months. Location Location Details Encounter Type Encounter Number Reason For Visit Attending Provider ADM Date DC Date Status Disposition Source [facility] Spring quijano([facility] Team 1) TELE CONSULT [id number] Notes Entered by: Gibson GHOSH 09 Jul 2017 1433 ------- ------- ------- ------- -- REFERRA L to request ing a referra l to OB 12 weeks pregnan t confirm SEE BELOW NIKIA FONSECA 07/09 Referred for Appointment [facility] Juliano tierney([facility] Team 1) Procedures Combined list of: 1) Procedures from Department of Veterans Affairs facilities going back up to thelast 18 months, not all [place] non-surgical procedures are included; 2) All procedures from the Department of Defense facilities. Procedure Procedure Type Code Date Perfomer Comments Sourc e No data available for this section Ambulatory P harmacy Social History Combined list of available smoking, tobacco, and other social history from Department of Defense and Veterans Affairs facilities. Social History Type Response Date Comment Sourc e This section is an empty social history section. DoD Assessment and Plan Combined list of future care activities from Department of Defense and Veterans Affairs facilities (e.g., assessment and plan notes, appointments, orders, and referrals). Additional future care activities may be listed in the Plan of Care section. Result Assessment and Plan Date Source Assessment and Plan No data available for this section 05/05/2024 Ambulatory Pharmacy Functional Status Combined list of recent functional and cognitive assessments recorded at [facility] of Defense and [facility] ([facility]).[facility] Functional Gordon Measurement (FIM) Scale: 1 = Total Assistance (Subject = 0% +), 2 = Maximal Assistance (Subject = 25% +), 3 = Moderate Assistance (Subject = 50% +), 4 = Minimal Assistance (Subject = 75% +), 5 = Supervision, 6 = Modified Gordon (Device), 7 = Complete Gordon (Timely, Safely). Assessment Date/Time Source Assessment Type Assessment Skill Assessment Score Assessment Details No data available for this section
--- NOTE | 2024-05-05 09:39 | MHC.PC.OV ---
Vital Signs 05/05/24 09:47 Height 5 ft 1 in Weight 144 lb 6 oz BMI 27.3 BP 120/60 Blood Pressure Location Rt brachial Position Sitting Respiration 14 Pulse 90 Pulse Source Pulse Oximeter Temp 98.3 F Temp Source Oral Pulse Oximetry (%) 97 Oxygen Delivery Method Room Air Intake Visit Reasons: f/u anxiety/depression Intake Note: f/u up for anxiety and depression pt would also like to talk about appetite increasing medication due to her not feeling the urge to eat. Allergies No Known Allergies Allergy (Verified 05/05/24 09:45) Medication List - Last Reconciled 05/05/24 by Devaughn Jewell MD albuterol sulfate 90 mcg/actuation (ProAir HFA) 1 puff inhalation QID PRN albuterol sulfate 2.5 mg (3 mL) inhalation Q4-6H PRN budesonide 90 mcg/actuation (Pulmicort Flexhaler) 2 inhalations inhalation Q12H 30 days bupropion HCl SR (Wellbutrin SR) 100 mg PO BID buspirone 7.5 mg PO BID 30 days citalopram 40 mg PO DAILY 30 days clonidine HCl 0.1 mg orally take 1/2 tablet at bedtime and may take the additional 1/2 tablet if still awake in one hour; fluticasone propionate 110 mcg/actuation (Flovent HFA) 1 puff inhalation BID hydroxyzine HCl 50 mg PO BEDTIME PRN 30 days nebulizers As directed omeprazole 20 mg PO DAILY 30 days Tobacco use date assessed: 12/19/23 Dental Screening Dental Screen Date: 08/19/23 HPI f/u anxiety/depression HPI Details 28 y/o female presents to f/u anxiety/depression. PHQ-9 20, LAUREN-7 19 today. Has a therapist and is working on getting a psychiatrist. She has an appt. with her therapist and psychiatrist tomorrow. She notes she feels her medication regimen has been working well. She does note loss of appetite the past 2 weeks. She feels she has to force herself to eat a meal a day. Reports an asthma attack about two weeks ago. 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 Father No problems noted. 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 1. Little interest or pleasure in doing things: several days 2. Feeling down, depressed, or hopeless: nearly every day 3. Trouble falling or staying asleep, or sleeping too much: nearly every day 4. Feeling tired or having little energy: nearly every day 5. Poor appetite or overeating: nearly every day 6. Feeling bad about yourself - or that you are a failure or have let yourself or your family down: nearly every day 7. Trouble concentrating on things, such as reading the newspaper or watching television: nearly every day 8. Moving or speaking so slowly that other people could have noticed. Or the opposite - being so fidgety or restless that you have been moving around a lot more than usual: several days 9. Thoughts that you would be better off or of hurting yourself in some way: not at all Total score: 20 Depression Screening Interpretation: Positive Depression Screening Done: Yes 39313 - PHQ-9 Billing: Yes Source: Developed by Drs. Ross Rojas, Ora Granda, Fabián Wells and colleagues, with an educational lev from [employer]. Thrive Questionnaire Date Thrive assessed: 12/18/24 I am a: Patient What is your living situation today?: I have a steady place to live Within the past 12 months, did the food you bought not last and you didn't have the money to get more?: Never true Within the past 12 months, did you worry whether your food would run out before you got money to buy more?: Never true Do you have trouble paying for medicines?: No Do you have trouble getting transportation to medical appointments?: No Do you have trouble paying your heating and electricity bill?: No Do you have trouble taking care of your child, family member or friend?: No Do you have trouble with day-to-day activities such as bathing, preparing meals, shopping, managing finances, etc.?: No Are you currently unemployed and looking for a job?: No Are you interested in more education?: No Please select the resources that you would like help with: None Currently or been in a relationship where the following occur: No concerns reported THRIVE Score: 0 AUDIT C Alcohol Use Questionnaire (AUDIT-C) 2. How many drinks containing alcohol do you have on a typical day when you are drinking?: 1 or 2 3. How often do you have six or more drinks on one occasion?: Never Total Score: 0 LAUREN-7 AMB Questionnaire LAUREN-7 Date LAUREN - 7 assessed: 05/05/24 Feeling nervous, anxious, or on edge: 3 = Nearly every day Not being able to stop or control worryin = Nearly every day Worrying too much about different things: 3 = Nearly every day Trouble relaxin = Nearly every day Being so restless that it is hard to sit still: 1 = Several days Becoming easily annoyed or irritable: 3 = Nearly every day Feeling afraid as if something awful might happen: 3 = Nearly every day Total LAUREN-7 score (0-4 normal; 5-9 mild; 10-14 moderate; 15-21 severe): 19 Source: Developed by Drs. Ross Rojas, Ora Granda, Fabián Wells and colleagues, with an educational lev from [employer] LAUREN-7 Assessment Billing LAUREN-7 Assessment Tool: LAUREN-7 Assessment 05224 Review of Systems Const Denies chills, Denies fatigue, Denies fever(s), Denies headache(s) and Denies weakness ENT Denies dizziness and Denies headache(s) Card Denies dyspnea Resp Denies cough, Denies dyspnea, Denies wheezing and Denies other (shortness of breath) Musc Denies numbness and Denies tingling Neuro Denies dizziness, Denies headache(s), Denies numbness, Denies tingling and Denies weakness Psych Reports anxiety and Reports depression Endo Denies fatigue Aller/Immun Denies wheezing Physical exam (Primary Care) Vital Signs: Last Vital Signs Temp 98.3 F 05/05/24 09:47 Pulse 90 05/05/24 09:47 Resp 14 05/05/24 09:47 BP 120/60 05/05/24 09:47 Pulse Ox 97 05/05/24 09:47 Oxygen Delivery Method Room Air 05/05/24 09:47 BMI result Body Mass Index 27.3 Tobacco/Smoking Status: Tobacco use Status Tobacco use date assessed 12/19/23 05/05/24 09:53 Patient Tobacco Use Status Never used Tobacco 05/05/24 09:53 e-Cigarette/Vaping Use Never Used 05/05/24 09:53 PHQ-9: PHQ-9 Score PHQ-9: Total score 20 05/05/24 10:18 Depression Screening Interpretation: Positive Thrive Assessment: Date of Thrive Assessment Date Thrive assessed 05/05/24 05/05/24 09:53 Currently or been in a relationship where the following occur: No concerns reported Const General: well developed; No acute distress Nutritional Appearance: well nourished Orientation/consciousness: [facility]: Yes normocephalic and Yes atraumatic Eyes General: appearance normal, both eyes and all related structures Pupils: Equal, round and reactive pupils present EOM: EOMs intact bilaterally Resp Effort & Inspection: normal respiratory effort Auscultation: clear to auscultation bilaterally Cardio Rate: regular rate Rhythm: regular rhythm Heart sounds: S1 normal heart sound present, S2 normal heart sound present, no gallops, no murmurs and no rubs Neuro General: patient oriented x3 and gait normal Cranial nerves: Yes Equal, round and reactive pupils present Psych Affect: normal affect Coding Level of Care Code Est Pt Level 3 (94232) Diagnoses Depression with anxiety F41.8 Post traumatic stress disorder F43.10 Asthma J45.909 Additional Codes LAUREN-7 Assessment Billing - LAUREN-7 Assessment Tool: LAUREN-7 Assessment [id number] ([id number]) PHQ-9 - 35981 - PHQ-9 Billing: Yes ([id number]) Assessment & Plan Assessment & Plan (1) Depression with anxiety: Code(s): F41.8 - Other specified anxiety disorders Category: Medical Plan: Ongoing?depression?and?anxiety Patient's?affect?appears?improved?today. She?is?taking?her?medications?as?prescribed Now?has?a?therapist?and?has?her?1st?appointment?with?her?new?psychiatrist?tomorrow. Patient?notes?that?she?starts?doing?worse?in?April?however?as?her?brother?passed?away?late?April/May. Continue?current?medication?regimen?and?follow-up?with?behavioral?health?team I?am?follow-up?with?her?a?few?months (2) Post traumatic stress disorder: Code(s): F43.10 - Post-traumatic stress disorder, unspecified Category: Medical Plan: As above (3) Asthma: Code(s): J45.909 - Unspecified asthma, uncomplicated Category: Medical Plan: Currently?stable Lungs?are?clear Continue?inhaled?meds?as?prescribed
[2024-05-05 09:47] VITALS: BP 120/60; PULSE 90; RESP 14; TEMP 36.8; O2SAT 97; BMI 27.3
== END 2024-05-05 10:29 | disposition home or self-care (01) ==
PROVIDERS: PCP Family Medicine; Visit Provider Family Medicine
DX: F41.8 Other specified anxiety disorders (principal); F43.10 Post-traumatic stress disorder, unspecified; J45.909 Unspecified asthma, uncomplicated

== ENCOUNTER → 2024-05-05 09:35 | Outpatient (BNVA) | payer OTHER, SELFPAY | PROVIDERS: PCP Family Medicine; Visit Provider Family Medicine | DX: F32.A Depression, unspecified (principal); F41.8 Other specified anxiety disorders; F43.10 Post-traumatic stress disorder, unspecified; J45.909 Unspecified asthma, uncomplicated | CPT/HCPCS: 96127; 99212 ==

== ENCOUNTER 2024-06-08 10:18 | Outpatient (REF) | payer OTHER, SELFPAY ==
--- OUTSIDE RECORDS SUMMARY | 2024-06-08 11:43 | XMS_ITS | Continuity of Care Document ---
Author Name [facility] Organization [facility] Care Team Providers Care Rod Hanger Name Role Phone [facility] Unavailable Unavailable Medications Combined list of outpatient [...] PRASCO LABS, 18 g CANISTER Cancele d [id number] : 2023 0 Pharmac y Data Transac [...] ORAL, AUROBINDO PHARM, 100 ea. BOTTLE Active [id number] 4 2023 20 Pharmac y Data Transac tion Service Facilit y BUSPIRONE HCL (buspirone HCl), 7.5 MG, TABLET, ORAL, STRIDES PHARMA, 100 ea. BOTTLE Active [id number] 4 2023 180 Pharmac y Data Transac tion Service Facilit y CITALOPRAM HBR (CITALOPRAM HYDROBROMID E), 20MG, TABLET, ORAL, TORRENT PHARMAC, 500 ea. BOTTLE Cancele d [id number] : 2023 0 Pharmac y Data Transac tion Service Facilit y CITALOPRAM HBR (CITALOPRAM HYDROBROMID E), 20MG, TABLET, ORAL, TORRENT PHARMAC, 500 ea. BOTTLE Active [id number] 2023 45 Pharmac y Data Transac tion Service Facilit y CITALOPRAM HBR (CITALOPRAM HYDROBROMID E), 20MG, TABLET, ORAL, TORRENT PHARMAC, 500 ea. BOTTLE Cancele d [id number] : 2023 0 Pharmac y Data Transac tion Service Facilit y CITALOPRAM HBR (CITALOPRAM HYDROBROMID E), 20MG, TABLET, ORAL, TORRENT PHARMAC, 500 ea. BOTTLE Active [id number] 2023 45 Pharmac y Data Transac tion Service Facilit y CITALOPRAM HBR (CITALOPRAM HYDROBROMID E), 40MG, TABLET, ORAL, TORRENT PHARMAC, 500 ea. BOTTLE Cancele d [id number] : 2023 0 Pharmac y Data Transac tion Service Facilit y CITALOPRAM HBR (CITALOPRAM HYDROBROMID E), 40MG, TABLET, ORAL, TORRENT PHARMAC, 500 ea. BOTTLE Cancele d [id number] : 2023 0 Pharmac y Data Transac tion Service Facilit y cyclobenzap rine 10 mg oral tablet cycloben zaprine 10 mg oral tablet Start Date: 08/29/20 Status: Ordered Ordered No Facilit y Access CYPROHEPTAD INE HCL (cyprohepta dine HCl), 4 MG, TABLET, ORAL, ZYDUS PHARMACEU, 100 ea. BOTTLE Active [id number] 2023 30 Pharmac y Data Transac [...] Known Allergies Drug allergy (disorder) active 04/29/2019 [facility] [place] Immunizations Combined list of available immunizations from the Department of Defense and Veterans Affairs facilities. Immunization Series Date Given Administered By Site Reaction Lot Number CVX Code Drug Metal Furniture Polisher Status Comments Source COVID-19, mRNA, LNP-S, PF, 30 mcg/0.3 mL dose [facility] () Not Given COVID-19, mRNA, LNP-S, [...] ADM Date DC Date Status Disposition Source [facility] [place] quijano([facility] Team 1) TELE CONSULT [id number] Notes Entered by: Gibson GHOSH 09 Jul 2017 1433 ------- ------- ------- ------- -- REFERRA L to request ing a referra l to OB 12 weeks pregnan t confirm SEE BELOW NIKIA FONSECA 07/09 Referred for Appointment [facility] Juliano tierney([facility] Team 1) Procedures Combined list of: 1) Procedures from Department of Veterans Affairs facilities going back up to thelast 18 months, not all [place] non-surgical procedures are included; 2) All procedures [...] Plan No data available for this section 06/08/2024 Ambulatory Pharmacy Functional Status Combined list of recent functional and cognitive assessments recorded at Department of Defense and Veterans Affairs (VA).VA Functional [place] Measurement (FIM) Scale: 1 = Total Assistance (Subject = 0% +), 2 = Maximal Assistance (Subject = 25% +), 3 = Moderate Assistance (Subject = 50% +), 4 = Minimal Assistance (Subject = 75% +), 5 = Supervision, 6 = Modified [place] (Device), 7 = Complete [place] (Timely, Safely). Assessment Date/Time Source Assessment Type Assessment Skill Assessment Score Assessment Details No data available for this section
--- OUTSIDE RECORDS SUMMARY | 2024-06-08 11:43 | XMS_ITS | Clinical Summary ---
Author Organization [facility] Address [address] [place] [address] Care Team Providers Care Beer Cooler Name Role Phone Alberto Arias MD Primary Care Provider Surgical History Surgery Date Site/Laterality Comments OTHER SURGICAL HISTORY PROCEDURE: DENIES PREVIOUS SURGERY Medical History Medical History Date Comments Asthma DX:Asthma Family History Medical History Relation Name Comments No Known Problems Father Diabetes Mother 36 Breast cancer Neg Hx Colon cancer Neg Hx Ovarian cancer Neg Hx Uterine cancer Neg Hx Relation Name Status Comments Father Alive Mother Social History Tobacco Use Types Packs/Day Years Used Date Smoking Tobacco: Never Smokeless Tobacco: Never Alcohol Use Standard Drinks/Week Comments Not Currently 0 (1 standard drink = 0.6 oz pur e alcohol) Sex and Gender Information Value Date Recorded Sex Assigned at Not on file Gender Identity Not on file Sexual Orientation Not on file Obstetrics History Last Filed Vital Signs Vital Sign Reading Time Taken Comments Blood Pressure 128/58 03/20/2022 2:05 PM EDT Pulse 72 03/20/2022 2:05 PM EDT Temperature - - Respiratory Rate - - Oxygen Saturation - - Inhaled Oxygen Concentration - - Weight 60.9 kg (134 lb 3.2 oz) 03/20/2022 2:05 P M EDT Height 154.9 cm (5' 1 ) 03/20/2022 2:05 PM EDT Body Mass Index 25.36 03/20/2022 2:05 PM EDT Plan of Treatment Health Maintenance Due Date Last Done Comments DTaP,Tdap,and Td Vaccines (1 - Tdap) 10/01/2014 Hepatitis B Vaccines (1 of 3 - 19+ 3-dose series) 10/01/2014 Depression Screening 04/28/2022 HIV Screening 04/28/2022 Hepatitis C Screening 04/28/2022 Social Influencers of Health Screening 04/28/2022 Cervical Cancer Screening: P ap Smear 12/13/2023 12/12/2020 COVID-19 Vaccine (1 - 2023-2 5 season) 2024 Influenza Vaccine (#1) 2024 HIB Vaccines Aged Out No longer eligi ble based on patient's age to complete this topic HPV Vaccines Aged Out No longer eligi ble based on patient's age to complete this topic Hepatitis A Vaccines Aged Out No long er eligible based on patient's age to complete this topic IPV Vaccines Aged Out No longer eligi ble based on patient's age to complete this topic MMR Vaccines Aged Out No longer eligi ble based on patient's age to complete this topic Meningococcal ACWY Vaccine Aged Out N o longer eligible based on patient's age to complete this topic Pneumococcal Vaccine: Pediat rics (0 to 5 Years) and At-Risk Patients (6 to 64 Years) Aged Out No longer eligi ble based on patient's age to complete this topic RSV Immunization Patients Un celsa 20 months Aged Out No longer eligible b ased on patient's age to complete this topic Varicella Vaccines Aged Out No longer eligible based on patient's age to complete this topic Procedures Procedure Name Priority Date/Time Associated Diagnosis Comments PAP SMEAR Routine 12/12/2020 from Last 3 Months or Most Recently Relevant to Health Maintenance Results * Pap smear (12/12/2020) 12/12/2020 Narrative HISTORICAL TESTING LAB RESULTING AGENCY - 12/14/2020 10:45 AM EDT [id number] THINPREP PAP, IMAGED: NEGATIVE FOR SQUAMOUS INTRAEPITHELIAL LESION AND MALIGNANCY . NGUYEN DAMON(ASCP) (CASE ELECTRONICALLY SIGNED 12 13 2020) ADEQUACY: SATISFACTORY ENDOCERVICAL/TRANSFORMATION ZONE COMPONENT PRESENT. SOURCE: THINPREP PAP HPV IF ASCUS, CERVICAL, IMAGED CLINICAL INFORMATION: HPV IF DIAGNOSIS OF ASCUS. Z12.4 Earnest Valderrama CN LAB CYTOLOGY ORDERAB LES HISTORICAL TESTING LAB RESULTING AGENCY from Last 3 Months or Most Recently Relevant to Health Maintenance Care Teams Beer Cooler Relationship Specialty Start Date End Date Alberto Arias MD [address] [address] PCP - General Internal Medicine 01/07/20
[2024-06-08 14:42] LABS: Appearance Urine Clear; Color Urine Dark Yellow; Glucose Urine UA Negative (Negative); Leukocyte Esterase Urine Small (1+) (Negative); Nitrite Urine Negative (Negative); PH 6.5 (5.0-9.0); Specific Gravity - Urine 1.025 (1.005-1.025); UMIC TRIGGER UACC YES; Urine Blood Negative (Negative); Urine Ketones Negative (Negative); Urine Protein Negative (Neg-Trace)
[2024-06-08 14:44] LABS: MANUAL DIFF FLAG NO
[2024-06-08 14:56] LABS: Basophils Absolute Auto 0.1 X10*3/uL (0.0-0.2); Basophils Percent Auto 0.9 % (0-2); Eosinophils Absolute Auto 0.2 X10*3/uL (0.0-0.4); Eosinophils Percent Auto 2.8 % (0-4); Hematocrit 40.3 % (37.0-47.0); Hemoglobin 13.6 g/dl (12.0-16.0); Imm Gran Abs Auto 0.02 X10*3/uL (0.00-0.03); Imm Gran Pct Auto 0.3 % (0.0-0.4); Lymphocytes Absolute Auto 2.6 X10*3/uL (1.2-4.9); Lymphocytes Percent Auto 34.6 % (20-40); Mean Corpuscular HGB Conc 33.7 g/dl (31.0-35.0); Mean Corpuscular Hemoglobin 30.4 pg (27.0-33.0); Mean Corpuscular Volume 90.2 fL (80.0-98.0); Mean Platelet Volume 10.4 fL (9.4-12.3); Monocytes Absolute Auto 0.5 X10*3/uL (0.1-1.2); Monocytes Percent Auto 6.4 % (2-11); Neutrophils Absolute Auto 4.2 x10*3/uL (2.0-8.3); Platelet Count 352 X10*3/uL (160-400); Red Blood Count 4.47 X10*6/uL (4.20-5.50); Red Cell Distribution Width 12.7 % (11.0-16.0); White Blood Count 7.6 X10*3/uL (4.8-10.8)
[2024-06-08 14:58] LABS: Bacteria Urine 4+ (None Seen); RBC Urine 0-2 /HPF (0-2); UACC Culture Trigger YES; WBC Urine 21-50 /HPF (0-5)
[2024-06-08 15:01] LABS: INTERNATIONAL NORM RATIO 0.9 (0.9-1.1); Prothrombin Time 10.7 SEC (10.9-12.4)
[2024-06-08 15:03] LABS: Partial Thromboplastin Time 30.1 SEC (26.0-36.8)
[2024-06-08 15:11] LABS: Alanine Aminotransferase 23 U/L (0-31); Albumin Level 4.3 g/dL (3.5-5.0); Alkaline Phosphatase 49 U/L (39-117); Anion Gap 7 (12-20); Aspartate Amino Transferase 19 U/L (5-31); Bilirubin Total 0.6 mg/dL (0.0-1.0); Blood Urea Nitrogen 12 mg/dL (9-16); Carbon Dioxide 28 mmol/L (22-29); Chloride 105 mmol/L (96-108); Estimated Glomerular Filt Rate > 60; Glucose Random 75 mg/dL (60-115); Potassium 3.9 mmol/L (3.3-5.1); Sodium 136 mmol/L (135-145); Total Protein 7.5 g/dL (6.5-8.0)
[2024-06-08 15:17] LABS: HCG Quantitative < 2 mIU/mL
[2024-06-09 08:22] LABS: HIV AB/AG Nonreactive (Nonreactive); HIV Num 1 0.05 S/CO (0.00-0.99)
== END 2024-06-08 10:19 | disposition home or self-care (01) ==
LOC: HO.WFDLDS 10:18
PROVIDERS: Visit Provider Surgery Plastic and Reconstructive Surgery
DX: Z01.818 Encounter for other preprocedural examination (principal); Z11.3 Encounter for screening for infections with a predominantly sexual mode of transmission
CPT/HCPCS: 36415; 80053; 81001; 84702; 85025; 85610; 85730; 87086; 87389; 99212

== ENCOUNTER 2024-06-08 10:36 | Outpatient (AMB) | payer OTHER, SELFPAY ==
--- NOTE | 2024-06-08 10:41 | A.OFFPC_ITS ---
Vital Signs 06/08/24 10:44 Height 5 ft 1 in Weight 146 lb 2 oz BMI 27.6 BP 108/72 Blood Pressure Location Lt brachial Position Sitting Respiration 12 Pulse 75 Pulse Source Pulse Oximeter Temp 96.4 F L Temp Source Skin Pulse Oximetry (%) 99 Oxygen Delivery Method Room Air Intake Visit Reasons: Plastic surgery Intake Note: Pre op for plastic surgery Thermodynamics Engineer Required: No Allergies No Known Allergies Allergy (Verified 06/08/24 10:42) Medication List - Last Reconciled 06/08/24 by Devaughn Jewell MD albuterol sulfate 90 mcg/actuation (ProAir HFA) 1 puff inhalation QID PRN albuterol sulfate 2.5 mg (3 mL) inhalation Q4-6H PRN budesonide 90 mcg/actuation (Pulmicort Flexhaler) 2 inhalations inhalation Q12H 30 days bupropion HCl SR (Wellbutrin SR) 100 mg PO BID buspirone 7.5 mg PO BID 30 days citalopram 40 mg PO DAILY 30 days clonidine HCl 0.1 mg orally take 1/2 tablet at bedtime and may take the additional 1/2 tablet if still awake in one hour; hydroxyzine HCl 50 mg PO BEDTIME PRN 30 days nebulizers As directed omeprazole 20 mg PO DAILY 30 days Tobacco use date assessed: 12/19/23 Dental Screening Dental Screen Date: 08/19/23 [facility] Plastic surgery HPI Details Patient presents for preoperative clearance prior to Plastic Surgery Procedure: Patient?presents?for?preoperative?clearance?prior?to?fat?transfer ?to?buttocks,?qjauzklvxfy-nwsj-qboj?360,?liposuction?in?her?thighs. Date:?July 07, 2024 Surgeon: Dr Aguilar Anesthesia: General Cardiac Hx: None Pulmonary Hx: Asthma - Taking controller med and has rescue inhaler. has been controlled. Prior Surgical Complications: None Prior Anesthesia Complications: None Coag issues: None Functional [place]: Yoga 2 x a week x 1 hour. 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 Father No problems noted. 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 18611 - PHQ-9 Billing: Patient declined-do not bill Source: Developed by Drs. Ross Rojas, Ora Granda, Fabián Wells and colleagues, with an educational lev from [employer]. Thrive Questionnaire Date Thrive assessed: 06/08/24 I am a: Patient What is your living situation today?: I have a steady place to live Within the past 12 months, did the food you bought not last and you didn't have the money to get more?: Never true Within the past 12 months, did you worry whether your food would run out before you got money to buy more?: Never true Do you have trouble paying for medicines?: No Do you have trouble getting transportation to medical appointments?: No Do you have trouble paying your heating and electricity bill?: No Do you have trouble taking care of your child, family member or friend?: No Do you have trouble with day-to-day activities such as bathing, preparing meals, shopping, managing finances, etc.?: No Are you currently unemployed and looking for a job?: No Are you interested in more education?: No Please select the resources that you would like help with: None Currently or been in a relationship where the following occur: No concerns reported THRIVE Score: 0 LAUREN-7 AMB Questionnaire LAUREN-7 Date LAUREN - 7 assessed: 05/05/24 Source: Developed by Drs. Ross Rojas, Ora Granda, Fabián Wells and colleagues, with an educational lev from [employer]. Review of Systems Const Denies chills, Denies fatigue, Denies fever(s), Denies headache(s) and Denies weakness ENT Denies dizziness and Denies headache(s) Card Denies chest pain, Denies lightheadedness, Denies dyspnea and Denies other (Palpitations) Resp Denies cough, Denies dyspnea, Denies wheezing and Denies other ( shortness of breath) Musc Denies numbness and Denies tingling Neuro Denies dizziness, Denies headache(s), Denies numbness, Denies tingling, Denies paresthesias and Denies weakness Psych Denies anxiety and Denies depression Endo Denies fatigue Aller/Immun Denies wheezing Physical exam (Primary Care) Vital Signs: Last Vital Signs Temp 96.4 F L 06/08/24 10:44 Pulse 75 06/08/24 10:44 Resp 12 06/08/24 10:44 BP 108/72 06/08/24 10:44 Pulse Ox 99 06/08/24 10:44 Oxygen Delivery Method Room Air 06/08/24 10:44 BMI result Body Mass Index 27.6 Tobacco/Smoking Status: Tobacco use Status Tobacco use date assessed 12/19/23 06/08/24 10:46 Patient Tobacco Use Status Never used Tobacco 06/08/24 10:46 e-Cigarette/Vaping Use Never Used 06/08/24 10:46 Thrive Assessment: Date of Thrive Assessment Date Thrive assessed 06/08/24 06/08/24 10:46 Currently or been in a relationship where the following occur: No concerns re ported Const General: no acute distress and well developed Nutritional Appearance: well nourished Orientation/consciousness: patient oriented x3 HENMT Head: Yes normocephalic and Yes atraumatic Eyes General: appearance normal, both eyes and all related structures Pupils: Equal, round and reactive pupils present EOM: EOMs intact bilaterally Resp Effort & Inspection: normal respiratory effort Auscultation: clear to auscultation bilaterally Cardio Rate: regular rate Rhythm: regular rhythm Heart sounds: S1 normal heart sound present, S2 normal heart sound present, no gallops, no murmurs and no rubs Neuro General: patient oriented x3 and gait normal Cranial nerves: Yes Equal, round and reactive pupils present Psych Affect: normal affect Coding Level of Care Code Est Pt Level 3 (29495) Diagnoses Pre-op exam Z01.818 Assessment & Plan Assessment & Plan (1) Pre-op exam: Code(s): Z01.818 - Encounter for other preprocedural examination Category: Medical Plan: Patient?presents?for?preoperative ?clearance?prior?to?fat?transfer?to?buttocks,?mnbnaapsndh-cwic-xikx?360,?liposuc tion?in?her?thighs. No?cardiac?disease?and?cardiac?exam?today?is?within?limits. EKG?shows?normal?sinus?rhythm,?normal? axis,?no?hypertrophy,?no?ST-T-wave?changes;?normal?EKG History?of?asthma.??Currently?stable?controller?medication?and?has?rescue?medica tion?available. Lungs?are?clear?to?auscultation?without?wheezing.? Her?asthma?is?optimized. No?adverse?events?from?prior?surgeries?or?anesthesia. No?coagulopathies Good?functional?reserve Will?risk?patient?for?Low-intermediate?risk?procedure. ?no?contraindications?to?proceeding?with?proposed?procedure Orders: Orders Comprehensive [place]. Panel Fast Today Z00.00 - Encounter for general adult medical examination without abnormal findings, Z.818 - Encounter for other preprocedural examination Prothrombin Time INR Today Z01.818 - Encounter for other preprocedural examination HCG Quantitative Today Z01.818 - Encounter for other preprocedural examination UA and rflx microscopic Today Z00.00 - Encounter for general adult medical examination without abnormal findings, Z01.818 - Encounter for other preprocedural examination Partial Thromboplastin Time Today Z01.818 - Encounter for other preprocedural examination Complete Blood Count Auto Diff Today Z01.818 - Encounter for other preprocedural examination HIV Ab/Ag Today Z01.818 - Encounter for other preprocedural examination, Z11.3 - Encounter for screening for infections with a predominantly sexual mode of transmission AMB EKG-In Office Today Z01.818 - Encounter for other preprocedural examination XR chest 2V Today Z01.818 - Encounter for other preprocedural examination Medications: Discontinued fluticasone propionate 110 mcg/actuation (Flovent HFA) administer with spacer Discontinued Reason: Doctor's Order 1 puff inhalation BID 12 grams 3RF
[2024-06-08 10:44] VITALS: BP 108/72; PULSE 75; RESP 12; TEMP 35.8; O2SAT 99; BMI 27.6
--- OUTSIDE RECORDS SUMMARY | 2024-06-08 11:59 | XMS_ITS | Continuity of Care Document ---
Author Name [facility] Organization [facility] Care Team Providers Care Dietary Manager Name Role Phone [facility] Unavailable Unavailable Medications Combined list of outpatient [...] PRASCO LABS, 18 g CANISTER Cancele d [id number] : 2023 0 Pharmac y Data Transac [...] ORAL, AUROBINDO PHARM, 100 ea. BOTTLE Active [id number] 2023 20 Pharmac y Data Transac tion Service Facilit y BUSPIRONE HCL (buspirone HCl), 7.5 MG, TABLET, ORAL, STRIDES PHARMA, 100 ea. BOTTLE Active [id number] 2023 180 Pharmac y Data Transac tion Service Facilit y CITALOPRAM HBR (CITALOPRAM HYDROBROMID E), 20MG, TABLET, ORAL, TORRENT PHARMAC, 500 ea. BOTTLE Cancele d [id number] : 2023 0 Pharmac y Data Transac tion Service Facilit y CITALOPRAM HBR (CITALOPRAM HYDROBROMID E), 20MG, TABLET, ORAL, TORRENT PHARMAC, 500 ea. BOTTLE Active [id number] 2023 45 Pharmac y Data Transac tion Service Facilit y CITALOPRAM HBR (CITALOPRAM HYDROBROMID E), 20MG, TABLET, ORAL, TORRENT PHARMAC, 500 ea. BOTTLE Cancele d [id number] : 2023 0 Pharmac y Data Transac tion Service Facilit y CITALOPRAM HBR (CITALOPRAM HYDROBROMID E), 20MG, TABLET, ORAL, TORRENT PHARMAC, 500 ea. BOTTLE Active [id number] 2023 45 Pharmac y Data Transac tion Service Facilit y CITALOPRAM HBR (CITALOPRAM HYDROBROMID E), 40MG, TABLET, ORAL, TORRENT PHARMAC, 500 ea. BOTTLE Cancele d [id number] : 2023 0 Pharmac y Data Transac tion Service Facilit y CITALOPRAM HBR (CITALOPRAM HYDROBROMID E), 40MG, TABLET, ORAL, TORRENT PHARMAC, 500 ea. BOTTLE Cancele d [id number] : 2023 0 Pharmac y Data Transac tion Service Facilit y cyclobenzap rine 10 mg oral tablet cycloben zaprine 10 mg oral tablet Start Date: 08/29/20 Status: Ordered Ordered No Facilit y Access CYPROHEPTAD INE HCL (cyprohepta dine HCl), 4 MG, TABLET, ORAL, ZYDUS PHARMACEU, 100 ea. BOTTLE Active [id number] 2023 30 Pharmac y Data Transac [...] Known Allergies Drug allergy (disorder) active 04/29/2019 [facility] Immunizations Combined list of available immunizations from the Department of Defense and Veterans Affairs facilities. Immunization Series Date Given Administered By Site Reaction Lot Number CVX Code Drug Public Health Engineer Status Comments Source COVID-19, mRNA, LNP-S, PF, 30 mcg/0.3 mL dose [facility] () Not Given COVID-19, mRNA, LNP-S, PF, [...] ADM Date DC Date Status Disposition Source [facility] [place] quijano([facility] Team 1) TELE CONSULT [id number] Notes Entered by: Gibson GHOSH 09 Jul 2017 1433 ------- ------- ------- ------- -- REFERRA L to request ing a referra l to OB 12 weeks pregnan t confirm SEE BELOW NIKIA FONSECA 07/09 Referred for Appointment [facility] Juliano tierney([facility] Team 1) Procedures Combined list of: 1) Procedures from Department of Veterans Affairs facilities going back up to thelast 18 months, not all [place] non-surgical procedures are included; 2) All procedures [...] of Defense and Veterans Affairs (VA).VA Functional [place] Measurement (FIM) Scale: 1 = Total Assistance (Subject = 0% +), 2 = Maximal Assistance (Subject = 25% +), 3 = Moderate Assistance (Subject = 50% +), 4 = Minimal Assistance (Subject = 75% +), 5 = Supervision, 6 = Modified [place] (Device), 7 = Complete [place] (Timely, Safely). Assessment Date/Time Source Assessment Type Assessment Skill Assessment Score Assessment Details No data available for this section
== END 2024-06-08 11:43 | disposition home or self-care (01) ==
PROVIDERS: PCP Family Medicine; Visit Provider Family Medicine
DX: Z01.818 Encounter for other preprocedural examination (principal)

== ENCOUNTER 2024-06-08 11:07 | Outpatient (REF) | payer OTHER, SELFPAY ==
--- OUTSIDE RECORDS SUMMARY | 2024-06-08 12:49 | XMS_ITS | Clinical Summary ---
Author Organization [facility] Address [address] [place] [address] Care Team Providers Care Drilling Supervisor Name Role Phone Alberto Arias MD Primary Care Provider [phone] Surgical History Surgery Date Site/Laterality Comments OTHER [...] RESULTING AGENCY - 12/14/2020 10:45 AM EDT [id number] THINPREP PAP, IMAGED: NEGATIVE FOR SQUAMOUS INTRAEPITHELIAL [...] Recently Relevant to Health Maintenance Care Teams Drilling Supervisor Relationship Specialty Start Date End Date Alberto Arias MD [address] [address] PCP - General Internal Medicine 01/07/20
== END 2024-06-08 11:08 | disposition home or self-care (01) ==
LOC: HO.LAB 11:07
PROVIDERS: Visit Provider Family Medicine
DX: Z13.89 Encounter for screening for other disorder (principal)

== ENCOUNTER 2024-06-11 11:15 | Outpatient (REF) | payer OTHER, SELFPAY ==
--- NOTE | ~2024-06-11 | XR_ITS ---
EXAMINATION: XR CHEST 2 VIEWS HISTORY: Z01.818 - Encounter for other preprocedural examination COMPARISON: Comparison is made with the prior examination dated 02/29/2020. FINDINGS: PA and lateral views of the chest are submitted. The lungs are expanded and clear. There is no pleural effusion, pneumothorax, or pulmonary vascular congestion. The heart is normal in size. The bones are intact. XR/XR chest 2V IMPRESSION: No acute cardiopulmonary abnormality. Electronically signed by: Ross Chou MD 06/11/2024 03:50 PM SWATHI
--- OUTSIDE RECORDS SUMMARY | 2024-06-11 13:26 | XMS_ITS | Continuity of Care Document ---
Author Name [facility] Organization [facility] Care Team Providers Care Housekeeper/Custodian/Laundry Worker Name Role Phone [facility] Unavailable Unavailable Medications Combined list of outpatient [...] PRASCO LABS, 18 g CANISTER Cancele d [id number] : 2023 0 Pharmac y Data Transac [...] ORAL, AUROBINDO PHARM, 100 ea. BOTTLE Active [id number] 2023 20 Pharmac y Data Transac tion Service Facilit y BUSPIRONE HCL (buspirone HCl), 7.5 MG, TABLET, ORAL, STRIDES PHARMA, 100 ea. BOTTLE Active [id number] 2023 180 Pharmac y Data Transac tion Service Facilit y CITALOPRAM HBR (CITALOPRAM HYDROBROMID E), 20MG, TABLET, ORAL, TORRENT PHARMAC, 500 ea. BOTTLE Cancele d [id number] : 2023 0 Pharmac y Data Transac tion Service Facilit y CITALOPRAM HBR (CITALOPRAM HYDROBROMID E), 20MG, TABLET, ORAL, TORRENT PHARMAC, 500 ea. BOTTLE Active [id number] 2023 45 Pharmac y Data Transac tion Service Facilit y CITALOPRAM HBR (CITALOPRAM HYDROBROMID E), 20MG, TABLET, ORAL, TORRENT PHARMAC, 500 ea. BOTTLE Cancele d [id number] : 2023 0 Pharmac y Data Transac tion Service Facilit y CITALOPRAM HBR (CITALOPRAM HYDROBROMID E), 20MG, TABLET, ORAL, TORRENT PHARMAC, 500 ea. BOTTLE Active [id number] 4 2023 45 Pharmac y Data Transac tion Service Facilit y CITALOPRAM HBR (CITALOPRAM HYDROBROMID E), 40MG, TABLET, ORAL, TORRENT PHARMAC, 500 ea. BOTTLE Cancele d [id number] : 2023 0 Pharmac y Data Transac tion Service Facilit y CITALOPRAM HBR (CITALOPRAM HYDROBROMID E), 40MG, TABLET, ORAL, TORRENT PHARMAC, 500 ea. BOTTLE Cancele d [id number] : 2023 0 Pharmac y Data Transac tion Service Facilit y cyclobenzap rine 10 mg oral tablet cycloben zaprine 10 mg oral tablet Start Date: 08/29/20 Status: Ordered Ordered No Facilit y Access CYPROHEPTAD INE HCL (cyprohepta dine HCl), 4 MG, TABLET, ORAL, ZYDUS PHARMACEU, 100 ea. BOTTLE Active [id number] 2023 30 Pharmac y Data Transac [...] Known Allergies Drug allergy (disorder) active 04/29/2019 [facility] Immunizations Combined list of available immunizations from the Department of Defense and Veterans Affairs facilities. Immunization Series Date Given Administered By Site Reaction Lot Number CVX Code Drug Armored Car Messenger Status Comments Source COVID-19, mRNA, LNP-S, PF, 30 mcg/0.3 mL dose [facility] () Not Given COVID-19, mRNA, LNP-S, PF, [...] ADM Date DC Date Status Disposition Source [facility] [place] quijano([facility] Team 1) TELE CONSULT [id number] Notes Entered by: Gibson GHOSH 09 Jul 2017 1433 ------- ------- ------- ------- -- REFERRA L to request ing a referra l to OB 12 weeks pregnan t confirm SEE BELOW NIKIA FONSECA 07/09 Referred for Appointment [facility] Juliano tierney([facility] Team 1) Procedures Combined list of: 1) Procedures from Department of Veterans Affairs facilities going back up to thelast 18 months, not all [place] non-surgical procedures are included; 2) All procedures [...] Plan No data available for this section 06/11/2024 Ambulatory Pharmacy Functional Status Combined list of recent functional and cognitive assessments recorded at Department of Defense and Veterans Affairs (VA).VA Functional [place] Measurement (FIM) Scale: 1 = Total Assistance (Subject = 0% +), 2 = Maximal Assistance (Subject = 25% +), 3 = Moderate Assistance (Subject = 50% +), 4 = Minimal Assistance (Subject = 75% +), 5 = Supervision, 6 = Modified [place] (Device), 7 = Complete [place] (Timely, Safely). Assessment Date/Time Source Assessment Type Assessment Skill Assessment Score Assessment Details No data available for this section
--- OUTSIDE RECORDS SUMMARY | 2024-06-11 13:26 | XMS_ITS | Clinical Summary ---
Author Organization [facility] Address [address] [place] [address] Care Team Providers Care Veterinary Meat Inspector Name Role Phone Alberto Arias MD Primary [...] RESULTING AGENCY - 12/14/2020 10:45 AM EDT [id number] THINPREP PAP, IMAGED: NEGATIVE FOR SQUAMOUS INTRAEPITHELIAL [...] Recently Relevant to Health Maintenance Care Teams Veterinary Meat Inspector Relationship Specialty Start Date End Date Alberto Arias MD [address] [address] PCP - General Internal Medicine 01/07/20
== END 2024-06-11 11:16 | disposition home or self-care (01) ==
LOC: HO.XRAY 11:15
PROVIDERS: PCP Family Medicine; Visit Provider Family Medicine
DX: Z01.818 Encounter for other preprocedural examination (principal)
CPT/HCPCS: 71046

== ENCOUNTER → 2024-06-11 11:19 | Outpatient (BNV) | payer OTHER, SELFPAY | PROVIDERS: PCP Family Medicine; Visit Provider Radiology Diagnostic Radiology | DX: Z01.818 Encounter for other preprocedural examination (principal) | CPT/HCPCS: 71046 ==

== ENCOUNTER 2024-07-21 14:34 | Outpatient (AMB) | payer OTHER, SELFPAY ==
--- NOTE | 2024-07-21 14:55 | MHC.PC.OV ---
Vital Signs 07/21/24 14:58 Height 5 ft 1 in Weight 146 lb 5 oz BMI 27.6 BP 96/66 Blood Pressure Location Rt brachial Position Sitting Respiration 14 Pulse 78 Pulse Source Pulse Oximeter Temp 98.0 F Temp Source Oral Pulse Oximetry (%) 98 Oxygen Delivery Method Room Air Intake Visit Reasons: LETTER FOR WORK Intake Note: letter to extend your work leave Photo Studio Assistant Required: No Allergies No Known Allergies Allergy (Verified 07/21/24 14:56) Tobacco use date assessed: 12/19/23 Dental Screening Dental Screen Date: 08/19/23 HPI LETTER FOR WORK HPI Details 28 y/o female presents to f/u anxiety/depression, paperwork. PHQ-9 20, LAUREN-7 19 today. Notes she has a psychiatrist now and has an f/u appt. with them next week. She continues to meet with her therapist once a week. She notes psychiatrist had prescribed her busiprone. She feels like her medication regimen has been working for her. She does note ongoing fatigue and wakes up tired. Denies FHx of sleep apnea. She is unsure if she snores when she sleeps. 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 Father No problems noted. Brother Substance use disorder Mental health disorder Social History Household Members: Children Household Members Other:: 1 son Both parents involved: No Caregiver staying overnight: No Housing: Apartment Are you a primary elderly caregiver to a significant other at home: No Do you presently have visiting nurse or other home services: No 75 years or older and lives alone: No Alcohol intake: never Patient Tobacco Use Status: Never used Tobacco e-Cigarette/Vaping Use: Never Used Second Hand Smoke Exposure: No service: No Current occupational status: employed Current occupation: [employer] Current occupational exposures/hazards: No Sexual orientation: Straight/Heterosexual Gender identity: Female Cognitive needs: No (Forgetful) Hearing needs: No Vision needs: No Questionnaire PHQ-9 Over the last 2 weeks, how often have you been bothered by any of the following problems? 1. Little interest or pleasure in doing things: nearly every day 2. Feeling down, depressed, or hopeless: nearly every day 3. Trouble falling or staying asleep, or sleeping too much: nearly every day 4. Feeling tired or having little energy: nearly every day 5. Poor appetite or overeating: several days 6. Feeling bad about yourself - or that you are a failure or have let yourself or your family down: nearly every day 7. Trouble concentrating on things, such as reading the newspaper or watching television: nearly every day 8. Moving or speaking so slowly that other people could have noticed. Or the opposite - being so fidgety or restless that you have been moving around a lot more than usual: several days 9. Thoughts that you would be better off or of hurting yourself in some way: not at all Total score: 20 Source: Developed by Drs. Ross Rojas, Ora Granda, Fabián Wells and colleagues, with an educational lev from [employer]. Thrive Questionnaire Date Thrive assessed: 07/18/24 I am a: Patient What is your living situation today?: I have a steady place to live Within the past 12 months, did the food you bought not last and you didn't have the money to get more?: Never true Within the past 12 months, did you worry whether your food would run out before you got money to buy more?: Never true Do you have trouble paying for medicines?: No Do you have trouble getting transportation to medical appointments?: No Do you have trouble paying your heating and electricity bill?: No Do you have trouble taking care of your child, family member or friend?: No Do you have trouble with day-to-day activities such as bathing, preparing meals, shopping, managing finances, etc.?: No Are you currently unemployed and looking for a job?: No Are you interested in more education?: No Please select the resources that you would like help with: None Currently or been in a relationship where the following occur: No concerns reported THRIVE Score: 0 AUDIT C Alcohol Use Questionnaire (AUDIT-C) 1. How often do you have a drink containing alcohol?: Never 2. How many drinks containing alcohol do you have on a typical day when you are drinking?: 1 or 2 3. How often do you have six or more drinks on one occasion?: Never Total Score: 0 LAUREN-7 AMB Questionnaire LAUREN-7 Date LAUREN - 7 assessed: 05/05/24 Feeling nervous, anxious, or on edge: 3 = Nearly every day Not being able to stop or control worryin = Nearly every day Worrying too much about different things: 3 = Nearly every day Trouble relaxin = Nearly every day Being so restless that it is hard to sit still: 1 = Several days Becoming easily annoyed or irritable: 3 = Nearly every day Feeling afraid as if something awful might happen: 3 = Nearly every day Total LAUREN-7 score (0-4 normal; 5-9 mild; 10-14 moderate; 15-21 severe): 19 Source: Developed by Drs. Ross Rojas, Ora Granda, Fabián Wells and colleagues, with an educational lev from [employer]. Review of Systems Const Denies chills, Denies fatigue, Denies fever(s), Denies headache(s) and Denies weakness ENT Denies dizziness and Denies headache(s) Card Denies dyspnea Resp Denies cough, Denies dyspnea, Denies wheezing and Denies other (shortness of breath) Musc Denies numbness and Denies tingling Neuro Denies dizziness, Denies headache(s), Denies numbness, Denies tingling and Denies weakness Psych Reports anxiety and Reports depression Endo Denies fatigue Aller/Immun Denies wheezing Physical exam (Primary Care) Vital Signs: Last Vital Signs Temp 98.0 F 07/21/24 14:58 Pulse 78 07/21/24 14:58 Resp 14 07/21/24 14:58 BP 96/66 07/21/24 14:58 Pulse Ox 98 07/21/24 14:58 Oxygen Delivery Method Room Air 07/21/24 14:58 BMI result Body Mass Index 27.6 Tobacco/Smoking Status: Tobacco use Status Tobacco use date assessed 12/19/23 07/21/24 15:02 Patient Tobacco Use Status Never used Tobacco 03/05/25 15:02 e-Cigarette/Vaping Use Never Used 07/21/24 15:02 PHQ-9: PHQ-9 Score PHQ-9: Total score 20 07/21/24 15:28 Thrive Assessment: Date of Thrive Assessment Date Thrive assessed 07/18/24 07/21/24 15:02 Currently or been in a relationship where the following occur: No concerns reported Const General: well developed; No acute distress Nutritional Appearance: well nourished Orientation/consciousness: patient oriented x3 [facility] Head: Yes normocephalic and Yes atraumatic Eyes General: appearance normal, both eyes and all related structures Pupils: Equal, round and reactive pupils present EOM: EOMs intact bilaterally Resp Effort & Inspection: normal respiratory effort Neuro General: patient oriented x3 and gait normal Cranial nerves: Yes Equal, round and reactive pupils present Psych Affect: normal affect Coding Level of Care Code Est Pt Level 3 (49878) Diagnoses Depression with anxiety F41.8 Hypersomnolence G47.10 Assessment & Plan Assessment & Plan (1) Depression with anxiety: Code(s): F41.8 - Other specified anxiety disorders Category: Medical Plan: Ongoing?anxiety?and?depression with 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 She?now?has?a?therapist?who?she?has?seen?a?couple?of?times?and?she?has?seen?a?new?psychiatrist?once.??She?has?another?appointment?with?her?psychiatrist?coming?up?and?is?followed?by?her?therapist?weekly. Psychiatrist?has?started?her?on?buspirone?7.5?mg?each?evening.??She?notes?at?it?is?causing?some?adverse?effects?such?as?dry?mouth. Advised?she?talked?to?her?psychiatrist?about?this.??For?example?she?could?request?trying?a?5?mg?dose. Follow-up?with?therapist?and?psychiatrist. We?discussed?that?I?will?give?patient?a?note?to?remain?out?of?work?through?August??with?a?tentative?return?date?of?August?. However,?we?discussed?that?after?that?point?it?will?be?more?appropriate?for?her?therapist?or?psychiatrist?to?determine?if?she?should?remain?out?of?work?or?when?she?should?return.??Patient?understands. (2) Hypersomnolence: Code(s): G47.10 - Hypersomnia, unspecified Category: Medical Plan: Consistent?daytime?sleepiness. Will?refer?her?to?Sleep?Medicine?to?rule?out?sleep?apnea Orders: Referrals Sleep Medicine Referral G47.10 - Hypersomnia, unspecified
[2024-07-21 14:58] VITALS: BP 96/66; PULSE 78; RESP 14; TEMP 36.7; O2SAT 98; BMI 27.6
--- OUTSIDE RECORDS SUMMARY | 2024-07-21 17:34 | XMS_ITS | Clinical Summary ---
Author Organization [facility] Address [address] [place] [address] Care Team Providers Care Microfilm Clerk Name Role Phone Alberto Arias MD Primary [...] drink = 0.6 oz pur e alcohol) Comments Unknown Sex and Gender Information Value Date Recorded Sex Assigned at Not on file Legal Sex Female 12:06 AM EST Gender Identity Not on file Sexual Orientation [...] P ap Smear 12/13/2023 12/12/2020 COVID-19 Vaccine (2023-2 5 season) 2024 Influenza Vaccine (#1) 2024 [...] patient's age to complete this topic Meningococcal B Vacine Aged Out No lo nger eligible based on patient's age to complete [...] RESULTING AGENCY - 12/14/2020 10:45 AM EDT [id number] THINPREP PAP, IMAGED: NEGATIVE FOR SQUAMOUS INTRAEPITHELIAL LESION AND MALIGNANCY . NGUYEN DAMON(ASCP) (CASE ELECTRONICALLY SIGNED 12 13 2020) ADEQUACY: SATISFACTORY ENDOCERVICAL/TRANSFORMATION ZONE COMPONENT PRESENT. SOURCE: THINPREP PAP HPV IF ASCUS, CERVICAL, IMAGED CLINICAL INFORMATION: HPV IF DIAGNOSIS OF ASCUS. Z12.4 us Earnest PHAN LAB CYTOLOGY ORDERABLES Final Result HISTORICAL TESTING LAB RESULTING AGENCY from Last 3 Months or Most Recently Relevant to Health Maintenance Care Teams Microfilm Clerk Relationship Specialty Start Date End Date Alberto Arias MD [address] [facility] [place] [address] PCP - General Internal Medicine 01/07/20
--- OUTSIDE RECORDS SUMMARY | 2024-07-21 17:34 | XMS_ITS | Continuity of Care Document ---
Author Name [facility] Organization [facility] Care Team Providers Care Deckhand Oyster Dredge Name Role Phone [facility] Unavailable Unavailable Medications Combined list of outpatient [...] g C Start Date: 05/23/21 Status: Ordered Repeat number: 1 Ordered 2021 No Facilit y Access ALBUTEROL SULFATE HFA (albuterol sulfate), 90 MCG, HFA AER AD, INHALATION, [facility], 18 g CANISTER Cancele d [id number] : 2023 0 Pharmac y Data Transac tion Service Facilit y ALBUTEROL SULFATE HFA (albuterol sulfate), 90 MCG, HFA AER AD, INHALATION, TEVA [place], 8.5 g CANISTER ALBUTERO L SULFATE HFA (albuter ol sulfate) , 90 MCG, HFA AER AD, INHALATI ON, TEVA [place], 8.5 g CANISTER Start Date: 10/31/20 Status: Ordered Repeat number: 1 Ordered 2021 No Facilit y Access ALBUTEROL SULFATE HFA (albuterol sulfate), 90 MCG, HFA AER AD, INHALATION, TEVA [place], 8.5 g CANISTER ALBUTERO L SULFATE HFA (albuter ol sulfate) , 90 MCG, HFA AER AD, INHALATI ON, TEVA [place], 8.5 g CANISTER Start Date: 07/28/20 Status: Ordered Repeat number: 1 Ordered 2021 No Facilit y Access ALBUTEROL SULFATE HFA (albuterol sulfate), 90 MCG, HFA AER AD, INHALATION, TEVA [place], 8.5 g CANISTER ALBUTERO L SULFATE HFA (albuter ol sulfate) , 90 MCG, HFA AER AD, INHALATI ON, TEVA [place], 8.5 g CANISTER Start Date: 03/09/20 Status: Ordered Repeat number: 1 Ordered 2021 No Facilit y Access AMOXICILLIN (AMOXICILLI N), 875MG, TABLET, ORAL, AUROBINDO PHARM, 100 ea. BOTTLE Active [id number] 4 2023 20 Pharmac y Data Transac tion Service Facilit y BUSPIRONE HCL (buspirone HCl), 7.5 MG, TABLET, ORAL, KOTURAS PHARMA, 100 ea. BOTTLE Active [id number] 4 2023 180 Pharmac y Data Transac tion Service Facilit y CITALOPRAM HBR (CITALOPRAM HYDROBROMID E), 20MG, TABLET, ORAL, TORRENT PHARMAC, 500 ea. BOTTLE Cancele d [id number] : 2023 0 Pharmac y Data Transac tion Service Facilit y CITALOPRAM HBR (CITALOPRAM HYDROBROMID E), 20MG, TABLET, ORAL, TORRENT PHARMAC, 500 ea. BOTTLE Active [id number] 2023 45 Pharmac y Data Transac tion Service Facilit y CITALOPRAM HBR (CITALOPRAM HYDROBROMID E), 20MG, TABLET, ORAL, TORRENT PHARMAC, 500 ea. BOTTLE Cancele d [id number] : 2023 0 Pharmac y Data Transac tion Service Facilit y CITALOPRAM HBR (CITALOPRAM HYDROBROMID E), 20MG, TABLET, ORAL, TORRENT PHARMAC, 500 ea. BOTTLE Active [id number] 2023 45 Pharmac y Data Transac tion Service Facilit y CITALOPRAM HBR (CITALOPRAM HYDROBROMID E), 40MG, TABLET, ORAL, TORRENT PHARMAC, 500 ea. BOTTLE Cancele d [id number] : 2023 0 Pharmac y Data Transac tion Service Facilit y CITALOPRAM HBR (CITALOPRAM HYDROBROMID E), 40MG, TABLET, ORAL, TORRENT PHARMAC, 500 ea. BOTTLE Cancele d [id number] : 2023 0 Pharmac y Data Transac tion Service Facilit y cyclobenzap rine 10 mg oral tablet cycloben zaprine 10 mg oral tablet Start Date: 08/29/20 Status: Ordered Repeat number: 1 Ordered 2021 No Facilit y Access cyclobenzap rine 10 mg oral tablet cycloben zaprine 10 mg oral tablet Start Date: 08/18/20 Status: Ordered Repeat number: 1 Ordered 2021 No Facilit y Access CYPROHEPTAD INE HCL (cyprohepta dine HCl), 4 MG, TABLET, ORAL, ZYDUS PHARMACEU, 100 ea. BOTTLE Active [id number] 2023 30 Pharmac y Data Transac tion Service Facilit y fluticasone 110 mcg/inh aerosol inhaler fluticas one 110 mcg/inh aerosol inhaler Start Date: 03/09/20 Status: Ordered Repeat number: 1 Ordered 2021 No Facilit y Access fluticasone 110 mcg/inh aerosol inhaler fluticas one 110 mcg/inh aerosol inhaler Start Date: 04/14/20 Status: Ordered Repeat number: 1 Ordered 2021 No Facilit y Access FLUZONE QUAD 0985-7642 (influenza virus vaccine quadrival 7810-5391(6 mos and up)/PF), 60MCG/.5ML, FLUZONE QUAD 2019- 1 (influen za virus vaccine quadriva l 2019-(6 mos and up)/PF), 60MCG/.5 ML, Start Date: 04/02/20 Status: Ordered Repeat number: 1 Ordered 2021 No Facilit y Access ibuprofen 800 mg oral tablet ibuprofe n 800 mg oral tablet Start Date: 10/22/20 Status: Ordered Repeat number: 1 Ordered 2021 No Facilit y Access ibuprofen 800 mg oral tablet ibuprofe n 800 mg oral tablet Start Date: 11/06/20 Status: Ordered Repeat number: 1 Ordered 2021 No Facilit y Access ibuprofen 800 mg oral tablet ibuprofe n 800 mg oral tablet Start Date: 09/18/20 Status: Ordered Repeat number: 1 Ordered 2021 No Facilit y Access ibuprofen 800 mg oral tablet ibuprofe n 800 mg oral tablet Start Date: 08/09/20 Status: Ordered Repeat number: 1 Ordered 2021 No Facilit y Access medroxyPROG ESTERone 150 mg/mL intramuscul ar suspension medroxyP ROGESTER one 150 mg/mL intramus cular suspensi on Start Date: 01/15/21 Status: Ordered Repeat number: 1 Ordered 2021 No Facilit y Access Allergies, Adverse Reactions, Alerts Combined list of allergies from Department of [facility] and Veterans Affairs facilities. It does not include entries that were removed or entered in error. Substance Category Reaction Severity Reaction type Status Date Reported Comments Source No Known Allergies Drug allergy (disorder) active 04/29/2019 [facility] Immunizations Combined list of available immunizations from the Department of [facility] and Veterans Affairs facilities. Immunization Series Date Given Administered By Site Reaction Lot Number CVX Code Drug Assisted Living Home Director Status Comments Source COVID-19, mRNA, LNP-S, PF, 30 mcg/0.3 mL dose 2021 [facility], () Not Given COVID-19, mRNA, LNP-S, PF, 30 mcg/0.3 mL dose [facility] influenza, injectable, quadrivalent, preservative free 2019 [facility], () Not Given influenza , injectabl e, quadrival ent, preservat claudia free DoD Encounters Combined list of: 1) Encounters from Department of Veterans Affairs facilities going backup to the last 18 months, not all VA inpatient encounters are included; 2) Encounters from the Department of [facility] facilities going backup to 280 months. Location Location Details Encounter Type Encounter Number Reason For Visit Attending Provider ADM Date DC Date Status Disposition Source [facility] [place]([facility] Team 1) TELE CONSULT [id number] Notes Entered by: Gibson GHOSH 09 Jul 2017 1433 ------- ------- ------- ------- -- REFERRA L to request ing a referra l to OB 12 weeks pregnan t confirm SEE BELOW RAYMUNDO NIKIA Yuridia 07/09 Referred for Appointment [facility] Juliano tierney([facility] Team 1) Procedures Combined list of: 1) Procedures from Department of Veterans Affairs facilities going back up to thelast 18 months, not all [place] non-surgical procedures are included; 2) All procedures [...] Plan No data available for this section 07/21/2024 Ambulatory Pharmacy Functional Status Combined list of recent functional and cognitive assessments recorded at [facility] [place] Functional [place] Measurement (FIM) Scale: 1 = Total Assistance (Subject = 0% +), 2 = Maximal Assistance (Subject = 25% +), 3 = Moderate Assistance (Subject = 50% +), 4 = Minimal Assistance (Subject = 75% +), 5 = Supervision, 6 = Modified [place] (Device), 7 = Complete [place] (Timely, Safely). Assessment Date/Time Source Assessment Type Assessment Skill Assessment Score Assessment Details No data available for this section
== END 2024-07-21 15:42 | disposition home or self-care (01) ==
PROVIDERS: PCP Family Medicine; Visit Provider Family Medicine
DX: F41.8 Other specified anxiety disorders (principal); G47.10 Hypersomnia, unspecified

== ENCOUNTER → 2024-07-21 14:34 | Outpatient (BNVA) | payer OTHER, SELFPAY | PROVIDERS: PCP Family Medicine; Visit Provider Family Medicine | DX: F41.8 Other specified anxiety disorders (principal); G47.10 Hypersomnia, unspecified | CPT/HCPCS: 99212 ==

== ENCOUNTER 2024-09-15 11:01 | Outpatient (AMB) | payer OTHER, SELFPAY ==
--- NOTE | 2024-09-15 11:08 | MHC.PC.OV ---
Vital Signs 09/15/24 11:09 Weight 144 lb 6 oz BP 90/60 Blood Pressure Location Lt brachial Position Sitting Respiration 14 Pulse 76 Pulse Source Pulse Oximeter Pulse Oximetry (%) 98 Oxygen Delivery Method Room Air Intake Visit Reasons: HD on 09/12 due to numbness and dizziness. 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 Required: No Allergies No Known Allergies Allergy (Verified 09/15/24 11:24) Medication List - Last Reconciled 09/15/24 by Devaughn Jewell MD acetaminophen 325 mg PO QID PRN albuterol sulfate 90 mcg/actuation (ProAir HFA) 1 puff inhalation QID PRN albuterol sulfate 2.5 mg (3 mL) inhalation Q4-6H PRN budesonide 90 mcg/actuation (Pulmicort Flexhaler) 2 inhalations inhalation Q12H 30 days bupropion HCl 75 mg PO BID bupropion HCl SR (Wellbutrin SR) 100 mg PO BID bupropion HCl XL 300 mg PO DAILY buspirone 7.5 mg PO BID 30 days drscgygimr-mmshpnmxaabks-oeiu 50-325-40 mg 1 cap PO Q6H PRN cholecalciferol (vitamin D3) 25 mcg PO DAILY citalopram 40 mg PO DAILY 30 days clonidine HCl 0.1 mg orally take 1/2 tablet at bedtime and may take the additional 1/2 tablet if still awake in one hour; hydroxyzine HCl 50 mg PO BEDTIME PRN 30 days lidocaine HCl 4% (Aspercreme (lidocaine HCl)) 1 appl topical BID multivitamin with minerals (Multiple Vitamin-Minerals tablet) 1 tab PO DAILY nebulizers As directed omeprazole 20 mg PO DAILY 30 days oxycodone mg PO polyethylene glycol 3350 17 grams PO DAILY prazosin 1 mg PO BEDTIME senna mg PO Tobacco use date assessed: 12/19/23 Dental Screening Dental Screen Date: 08/19/23 HPI HD on 09/12 due to numbness and dizziness. HPI Details 28 y/o female presents to f/u hospital visit in August 22, discharge for dizziness, L facial numbness, blurred/double vision. MRI brain was unremarkable. Pt developed severe back pain, was transferred to [facility] for further evaluation. MRI T/L spine 08/29-08/31 which showed CSF-signal collection in subdural area L5-S1. Per specialists, CSF collection typically resolve in 7-10 days. No new focal deficits 08/30. 08/31 pt had episode of unresponsiveness. Stat CT head was negative. Video EEG negative for seizure activity. 09/05/19, pt had episode of unresponsiveness with eyes fluttering and upward gaze last night. Pt questions whether episodes of unresponsiveness could be caused by trauma/mental health. Pt reports ongoing dizziness when standing. She states she is currently in bed rest. She notes she thinks she does have panic attacks in the evenings while trying to sleep. They note it has been about 6 days since her last bowel movement. She has been eating twice a day but has been eating less. Has been passing gas, Has been urinating fine. Denies abd. pain. 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 Father No problems noted. 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 1. Little interest or pleasure in doing things: nearly every day 2. Feeling down, depressed, or hopeless: nearly every day 3. Trouble falling or staying asleep, or sleeping too much: nearly every day 4. Feeling tired or having little energy: nearly every day 5. Poor appetite or overeating: nearly every day 6. Feeling bad about yourself - or that you are a failure or have let yourself or your family down: nearly every day 7. Trouble concentrating on things, such as reading the newspaper or watching television: nearly every day 8. Moving or speaking so slowly that other people could have noticed. Or the opposite - being so fidgety or restless that you have been moving around a lot more than usual: nearly every day 9. Thoughts that you would be better off or of hurting yourself in some way: not at all Total score: 24 Depression Screening Interpretation: Positive Depression Screening Done: Yes 77886 - PHQ-9 Billing: Yes Source: Developed by Drs. Ross Rojas, Ora Granda, Fabián Wells and colleagues, with an educational lev from [employer]. Thrive Questionnaire Date Thrive assessed: 07/18/24 I am a: Patient What is your living situation today?: I have a steady place to live Within the past 12 months, did the food you bought not last and you didn't have the money to get more?: Never true Within the past 12 months, did you worry whether your food would run out before you got money to buy more?: Never true Do you have trouble paying for medicines?: No Do you have trouble getting transportation to medical appointments?: No Do you have trouble paying your heating and electricity bill?: No Do you have trouble taking care of your child, family member or friend?: No Do you have trouble with day-to-day activities such as bathing, preparing meals, shopping, managing finances, etc.?: No Are you currently unemployed and looking for a job?: No Are you interested in more education?: No Please select the resources that you would like help with: None Currently or been in a relationship where the following occur: No concerns reported THRIVE Score: 0 LAUREN-7 AMB Questionnaire LAUREN-7 Date LAUREN - 7 assessed: 09/15/24 Feeling nervous, anxious, or on edge: 3 = Nearly every day Not being able to stop or control worryin = Nearly every day Worrying too much about different things: 3 = Nearly every day Trouble relaxin = Nearly every day Being so restless that it is hard to sit still: 1 = Several days Becoming easily annoyed or irritable: 1 = Several days Feeling afraid as if something awful might happen: 3 = Nearly every day Total LAUREN-7 score (0-4 normal; 5-9 mild; 10-14 moderate; 15-21 severe): 17 Source: Developed by Drs. Ross Rojas, Ora Granda, Fabián Wells and colleagues, with an educational lev from [employer]. LAUREN-7 Assessment Billing LAUREN-7 Assessment Tool: LAUREN-7 Assessment 98657 Review of Systems Const Denies chills, Denies fatigue, Denies fever(s), Denies headache(s) and Denies weakness ENT Denies dizziness and Denies headache(s) Card Denies dyspnea Resp Denies cough, Denies dyspnea, Denies wheezing and Denies other (shortness of breath) GI Reports constipation Musc Denies numbness and Denies tingling Neuro Denies dizziness, Denies headache(s), Denies numbness, Denies tingling and Denies weakness Psych Reports anxiety and Reports depression Endo Denies fatigue Aller/Immun Denies wheezing Physical exam (Primary Care) Vital Signs: Last Vital Signs Pulse 76 09/15/24 11:09 Resp 14 09/15/24 11:09 BP 90/60 09/15/24 11:09 Pulse Ox 98 09/15/24 11:09 Oxygen Delivery Method Room Air 09/15/24 11:09 Tobacco/Smoking Status: Tobacco use Status Tobacco use date assessed 12/19/23 09/15/24 11:14 Patient Tobacco Use Status Never used Tobacco 09/15/24 11:14 e-Cigarette/Vaping Use Never Used 09/15/24 11:14 PHQ-9: PHQ-9 Score PHQ-9: Total score 09/15/24 12:38 Depression Screening Interpretation: Positive Thrive Assessment: Date of Thrive Assessment Date Thrive assessed 07/18/24 09/15/24 11:14 Currently or been in a relationship where the following occur: No concerns reported Const General: well developed; No acute distress Nutritional Appearance: well nourished Orientation/consciousness: patient oriented x3 [facility] Head: Yes normocephalic and Yes atraumatic Eyes General: appearance normal, both eyes and all related structures Pupils: Equal, round and reactive pupils present EOM: EOMs intact bilaterally Resp Effort & Inspection: normal respiratory effort Neuro General: patient oriented x3 and gait normal Cranial nerves: Yes Equal, round and reactive pupils present Psych Affect: normal affect Coding Level of Care Code TCM High MDM <= 7 Days Diagnoses Dizziness R42 Seizure-like activity R56.9 Episode of unresponsiveness R40.4 Depression with anxiety F41.8 Constipation K59.00 CSF leak at LP site G97.0 Additional Codes LAUREN-7 Assessment Billing - LAUREN-7 Assessment Tool: LAUREN-7 Assessment 85807 ([id number]) PHQ-9 - 63526 - PHQ-9 Billing: Yes ([id number]) Assessment & Plan Assessment & Plan (1) Dizziness: Code(s): R42 - Dizziness and giddiness Category: Medical (2) Seizure-like activity: Code(s): R56.9 - Unspecified convulsions Category: Medical (3) Episode of unresponsiveness: Code(s): R40.4 - Transient alteration of awareness Category: Medical (4) Depression with anxiety: Code(s): F41.8 - Other specified anxiety disorders Category: Medical (5) Constipation: Code(s): K59.00 - Constipation, unspecified Category: Medical (6) CSF leak at LP site: Code(s): G97.0 - Cerebrospinal fluid leak from spinal puncture Category: Medical Plan Follow-up from?hospital?discharge?after functional?neurologic?complaints?including?numbness?which?does?not?follow?dermatomal?distribution?and?unresponsiveness?and?seizure-like?activity?without EEG?evidence?of?seizure?or?epileptiform?activity. Also?had?complaints?of?double?vision. Patient?had?extensive?workup?including?imaging?and?lumbar?puncture. Lumbar?puncture?negative. She?did?develop?a?CSF?leak?at?site?of?lumbar?puncture?with?complaints?of?severe?pain?and?headache. Neurology?and?neurosurgery?declined to?perform?a?patch. They?have?recommended?bed?rest. Patient?has?already?been?out?of?work?due?to?anxiety/depression.??Her?sister?is?staying?home?with?her?to?care?for?her?and?her?child?while?she?is?convalescing. She?has?significant?complaints?of?constipation?and?she?has?been?on?very?high?doses?of?Dilaudid?and?more?recently?oxycodone?20?mg?t.i.d.. I?have?encouraged?her?to?break?these?in?half?and?take?10?mg?t.i.d.. When?she?runs?out?she?will?start?oxycodone?5?mg?t.i.d.. Decreasing?opioid?will?also?help?with?her?constipation.??She?should?hydrate?well?and she?can?use?MiraLax?as?prescribed. No?underlying?problem?was?phoned?for?her?initial?complaints. Ultimately,?she?will?need?to?follow-up?with?her?therapist?and?her?psychiatrist.??She?remains?disabled?and?out?of?work. She?will?continue?bupropion,?hydroxyzine?and?clonidine?as?needed.??Will?trial lorazepam?0.5?mg?once?daily?as?needed?for?severe?anxiety. Will?fill?out?FMLA?forms?to?extend continues?leave?of?absence?for?her?sister?from September??through?October?16. Orders: Referrals Ophthalmology Referral H53.2 - Diplopia Medications: New oxycodone Partial Fill upon patient request. 5 mg PO Q8H 15 tabs 0RF 5 days lorazepam #20 tabs per 30 days. Masspat Verified 0.5 mg PO DAILY PRN 20 tabs 0RF anxiety 30 days
[2024-09-15 11:09] VITALS: BP 90/60; PULSE 76; RESP 14; O2SAT 98
--- OUTSIDE RECORDS SUMMARY | 2024-09-15 12:38 | XMS_ITS | Clinical Summary ---
Author Organization [facility] Address [address] [place] [address] Care Team Providers Care Elevator Operator Freight Name Role Phone Alberto Arias MD Primary [...] Vaccine (2023-2 5 season) 2024 Influenza Vaccine (Season Ended) 2025 HIB Vaccines Aged Out No longer eligi [...] age to complete this topic Meningococcal B Vaccine Aged Out No l onger eligible based on patient's age to complete [...] RESULTING AGENCY - 12/14/2020 10:45 AM EDT [id number] THINPREP PAP, IMAGED: NEGATIVE FOR SQUAMOUS INTRAEPITHELIAL [...] Recently Relevant to Health Maintenance Care Teams Elevator Operator Freight Relationship Specialty Start Date End Date Alberto Arias MD [address] [place] [address] JOYCELYN MYERS [id number] PCP - General Internal Medicine 01/07/20
--- OUTSIDE RECORDS SUMMARY | 2024-09-15 12:38 | XMS_ITS | Continuity of Care Document ---
Author Name [facility] Organization [facility] Care Team Providers Care Doors Prefitter Name Role Phone [facility] Unavailable Unavailable Medications Combined list of outpatient [...] ORAL, AUROBINDO PHARM, 100 ea. BOTTLE Active [id number] 2023 20 Pharmac y Data Transac tion Service Facilit y BUSPIRONE HCL (buspirone HCl), 7.5 MG, TABLET, ORAL, [employer] PHARMA, 100 ea. BOTTLE Active [id number] 4 2023 180 Pharmac y Data Transac tion Service Facilit y CITALOPRAM HBR (CITALOPRAM HYDROBROMID E), 20MG, TABLET, ORAL, TORRENT PHARMAC, 500 ea. BOTTLE Cancele d [id number] : 2023 0 Pharmac y Data Transac tion Service Facilit y CITALOPRAM HBR (CITALOPRAM HYDROBROMID E), 40MG, TABLET, ORAL, TORRENT PHARMAC, 500 ea. BOTTLE Cancele d [id number] : 2023 0 Pharmac y Data Transac tion Service Facilit y CITALOPRAM HBR (CITALOPRAM HYDROBROMID E), 40MG, TABLET, ORAL, TORRENT PHARMAC, 500 ea. BOTTLE Cancele d [id number] : 2023 0 Pharmac y Data Transac [...] 2021 No Facilit y Access FLUZONE QUAD (influenza virus vaccine quadrival (6 mos and up)/PF), 60MCG/.5ML, FLUZONE QUAD (influen za virus vaccine quadriva l (6 mos and up)/PF), 60MCG/.5 ML, Start Date: [...] Known Allergies Drug allergy (disorder) active 04/29/2019 [facility] Immunizations Combined list of available immunizations from the Department of Defense and Veterans Affairs facilities. Immunization Series Date Given Administered By Site Reaction Lot Number CVX Code Drug Roller Stainer Status Comments Source COVID-19, mRNA, LNP-S, PF, 30 mcg/0.3 mL dose 2021 BOGDASARIAN, () Not Given COVID-19, mRNA, LNP-S, PF, 30 mcg/0.3 mL dose DoD influenza, injectable, quadrivalent, preservative free 2019 BOGDASARIAN, () Not Given influenza , injectabl e, quadrival ent, preservat claudia free DoD Encounters Combined list of: 1) Encounters from Department of [facility] facilities going backup to the last 18 months, not all MD inpatient encounters are included; 2) Encounters from the Department [facility] facilities going backup to 280 months. Location Location Details Encounter Type Encounter Number Reason For Visit Attending Provider ADM Date DC Date Status Disposition Source [facility] Spring quijano([facility] Team 1) TELE CONSULT [id number] Notes Entered by: Gibson GHOSH 09 Jul 2017 [id number] ------- ------- ------- ------- -- REFERRA L to request ing a referra l to OB 12 weeks pregnan t confirm SEE BELOW NIKIA FONSECA 07/09 Referred for Appointment [facility] Juliano tierney([facility] Team 1) Procedures Combined list of: 1) Procedures from [facility] facilities going back up to thelast 18 months, not all MD non-surgical procedures are included; 2) All procedures from the Department [facility] facilities. Procedure Procedure Type Code Date Perfomer [...] of future care activities from Department of [facility] and Veterans Affairs facilities (e.g., assessment and plan notes, appointments, orders, and referrals). Additional future care activities may be listed in the Plan of Care section. Result Assessment and Plan Date Source Assessment and Plan No data available for this section 09/15/2024 Ambulatory Pharmacy Functional Status Combined list of recent functional and cognitive assessments recorded at Department of Defense and Veterans Affairs (MD).VA Functional [place] Measurement (FIM) Scale: 1 = Total Assistance (Subject = 0% +), 2 = Maximal Assistance (Subject = 25% +), 3 = Moderate Assistance (Subject = 50% +), 4 = Minimal Assistance (Subject = 75% +), 5 = Supervision, 6 = Modified [place] (Device), 7 = Complete [place] (Timely, Safely). Assessment Date/Time Source Assessment Type Assessment Skill Assessment Score Assessment Details No data available for this section
== END 2024-09-15 12:32 | disposition home or self-care (01) ==
LOC: HO.HMCFM 11:02
PROVIDERS: PCP Family Medicine; Visit Provider Family Medicine
DX: R42 Dizziness and giddiness (principal); R56.9 Unspecified convulsions; R40.4 Transient alteration of awareness; F41.8 Other specified anxiety disorders; K59.00 Constipation, unspecified; G97.0 Cerebrospinal fluid leak from spinal puncture

== ENCOUNTER → 2024-09-15 11:01 | Outpatient (BNVA) | payer OTHER, SELFPAY | PROVIDERS: PCP Family Medicine; Visit Provider Family Medicine | DX: R42 Dizziness and giddiness (principal); R56.9 Unspecified convulsions; R40.4 Transient alteration of awareness; F41.8 Other specified anxiety disorders; K59.00 Constipation, unspecified; G97.0 Cerebrospinal fluid leak from spinal puncture | CPT/HCPCS: 96127; 99496 ==

== ENCOUNTER 2024-09-29 10:31 | Outpatient (AMB) | payer OTHER, SELFPAY ==
--- NOTE | 2024-09-29 10:33 | MHC.PC.OV ---
Vital Signs 09/29/24 10:42 Height 5 ft 1 in Weight 138 lb 4 oz BMI 26.1 BP 108/60 Blood Pressure Location Lt brachial Position Sitting Respiration 14 Pulse 82 Pulse Source Pulse Oximeter Temp 98.4 F Temp Source Oral Pulse Oximetry (%) 98 Oxygen Delivery Method Room Air Intake Visit Reasons: f/u anxiety/depression & chronic conditions Intake Note: Patient says that since she's been discharge from hospital she would feel better after 2 weeks but she is still experiencing headaches pain she also says that when does physcial therapy she get nausea. Allergies No Known Allergies Allergy (Verified 09/29/24 10:34) Medication List - Last Reconciled 09/29/24 by Devaughn Jewell MD acetaminophen 325 mg PO QID PRN albuterol sulfate 90 mcg/actuation (ProAir HFA) 1 puff inhalation QID PRN albuterol sulfate 2.5 mg (3 mL) inhalation Q4-6H PRN budesonide 90 mcg/actuation (Pulmicort Flexhaler) 2 inhalations inhalation Q12H 30 days bupropion HCl 75 mg PO BID bupropion HCl SR (Wellbutrin SR) 100 mg PO BID bupropion HCl XL 300 mg PO DAILY buspirone 7.5 mg PO BID 30 days [id number]-[id number] 50-325-40 mg 1 cap PO Q6H PRN cholecalciferol (vitamin D3) 25 mcg PO DAILY citalopram 40 mg PO DAILY 30 days clonidine HCl 0.1 mg orally take 1/2 tablet at bedtime and may take the additional 1/2 tablet if still awake in one hour; hydroxyzine HCl 50 mg PO BEDTIME PRN 30 days lidocaine HCl 4% (Aspercreme (lidocaine HCl)) 1 appl topical BID lorazepam 0.5 mg PO DAILY PRN 30 days meloxicam 15 mg PO DAILY 30 days multivitamin with minerals (Multiple Vitamin-Minerals tablet) 1 tab PO DAILY nebulizers As directed omeprazole 20 mg PO DAILY 30 days oxycodone 5 mg PO Q8H 5 days polyethylene glycol 3350 17 grams PO DAILY prazosin 1 mg PO BEDTIME senna mg PO Tobacco use date assessed: 09/29/24 Dental Screening Dental Screen Date: 08/19/23 Did you have a dental visit in the last 12 months?: Yes Did you have a dental problem in the last 6 months where you did not have access to dental care?: No Was dental information given to patient?: No HPI f/u anxiety/depression & chronic conditions HPI Details 28 y/o female presents to f/u anxiety/depression, chronic conditions. CSF leak at LP site. Pt reports ongoing back pain/headaches. She reports ongoing dizziness/lightheadedness. Pt reports ongoing double vision/blurriness. Pt notes she had seen an eye glass frame polisher and they had recommended a f/u with neurology as she states they did not see anything wrong with her eyes. She reports constipation has improved. PHQ-9 22, LAUREN-7 21 today. HPI Comments History of Present Illness Details Documentation assistance for Devaughn Jewell MD, was provided by Kailash Barroso,? Commercial Designer on 09/29/2024 at 11:00 AM EST. I, Dr. Jewell, have read, observed, and verified documentation. ?? 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 Father No problems noted. Brother Substance use disorder Mental health disorder Social History Household Members: Children Household Members Other:: 1 son Both parents involved: No Caregiver staying overnight: No Housing: Apartment Are you a primary primary care sales representative to a significant other at home: No Do you presently have visiting nurse or other home services: No 75 years or older and lives alone: No Alcohol intake: never Patient Tobacco Use Status: Never used Tobacco e-Cigarette/Vaping Use: Never Used Second Hand Smoke Exposure: No service: No Current occupational status: employed Current occupation: [employer] Current occupational exposures/hazards: No Sexual orientation: Straight/Heterosexual Gender identity: Female Cognitive needs: No (Forgetful) Hearing needs: No Vision needs: No Questionnaire PHQ-9 Over the last 2 weeks, how often have you been bothered by any of the following problems? 1. Little interest or pleasure in doing things: nearly every day 2. Feeling down, depressed, or hopeless: nearly every day 3. Trouble falling or staying asleep, or sleeping too much: nearly every day 4. Feeling tired or having little energy: nearly every day 5. Poor appetite or overeating: nearly every day 6. Feeling bad about yourself - or that you are a failure or have let yourself or your family down: nearly every day 7. Trouble concentrating on things, such as reading the newspaper or watching television: nearly every day 8. Moving or speaking so slowly that other people could have noticed. Or the opposite - being so fidgety or restless that you have been moving around a lot more than usual: several days 9. Thoughts that you would be better off or of hurting yourself in some way: not at all Total score: 22 Depression Screening Interpretation: Negative Depression Screening Done: Yes 19501 - PHQ-9 Billing: Yes Source: Developed by Drs. Ross Rojas, Ora Granda, Fabián Wells and colleagues, with an educational lev from [employer]. Thrive Questionnaire Date Thrive assessed: 09/29/24 I am a: Patient What is your living situation today?: I have a steady place to live Within the past 12 months, did the food you bought not last and you didn't have the money to get more?: Never true Within the past 12 months, did you worry whether your food would run out before you got money to buy more?: Never true Do you have trouble paying for medicines?: No Do you have trouble getting transportation to medical appointments?: No Do you have trouble paying your heating and electricity bill?: No Do you have trouble taking care of your child, family member or friend?: No Do you have trouble with day-to-day activities such as bathing, preparing meals, shopping, managing finances, etc.?: No Are you currently unemployed and looking for a job?: No Are you interested in more education?: No Please select the resources that you would like help with: None Currently or been in a relationship where the following occur: No concerns reported THRIVE Score: 0 LAUREN-7 AMB Questionnaire LAUREN-7 Date LAUREN - 7 assessed: 09/29/24 Feeling nervous, anxious, or on edge: 3 = Nearly every day Not being able to stop or control worryin = Nearly every day Worrying too much about different things: 3 = Nearly every day Trouble relaxin = Nearly every day Being so restless that it is hard to sit still: 3 = Nearly every day Becoming easily annoyed or irritable: 3 = Nearly every day Feeling afraid as if something awful might happen: 3 = Nearly every day Total LAUREN-7 score (0-4 normal; 5-9 mild; 10-14 moderate; 15-21 severe): 21 Source: Developed by Drs. Ross Rojas, Ora Granda, Fabián Wells and colleagues, with an educational lev from [employer]. LAUREN-7 Assessment Billing LAUREN-7 Assessment Tool: LAUREN-7 Assessment 76899 Review of Systems Const Denies chills, Denies fatigue, Denies fever(s) and Denies weakness ENT Reports dizziness Card Denies dyspnea Resp Denies cough, Denies dyspnea, Denies wheezing and Denies other (shortness of breath) Musc Denies numbness and Denies tingling Neuro Reports dizziness, Denies numbness, Denies tingling and Denies weakness Psych Reports anxiety and Reports depression Endo Denies fatigue Aller/Immun Denies wheezing Physical exam (Primary Care) Vital Signs: Last Vital Signs Temp 98.4 F 09/29/24 10:42 Pulse 82 09/29/24 10:42 Resp 14 09/29/24 10:42 BP 108/60 09/29/24 10:42 Pulse Ox 98 09/29/24 10:42 Oxygen Delivery Method Room Air 09/29/24 10:42 BMI result Body Mass Index 26.1 Tobacco/Smoking Status: Tobacco use Status Tobacco use date assessed 09/29/24 09/29/24 10:42 Patient Tobacco Use Status Never used Tobacco 09/29/24 10:34 e-Cigarette/Vaping Use Never Used 09/29/24 10:34 PHQ-9: PHQ-9 Score PHQ-9: Total score 22 09/29/24 10:47 Depression Screening Interpretation: Negative Thrive Assessment: Date of Thrive Assessment Date Thrive assessed 09/29/24 09/29/24 10:42 Currently or been in a relationship where the following occur: No concerns reported Const General: well developed; No acute distress Nutritional Appearance: well nourished Orientation/consciousness: patient oriented x3 [facility] Head: Yes normocephalic and Yes atraumatic Eyes General: appearance normal, both eyes and all related structures Pupils: Equal, round and reactive pupils present EOM: EOMs intact bilaterally Resp Effort & Inspection: normal respiratory effort Neuro General: patient oriented x3 and gait normal Cranial nerves: Yes Equal, round and reactive pupils present Psych Affect: normal affect Coding Level of Care Code Est Pt Level 4 (44623) Diagnoses Depression with anxiety F41.8 Seizure-like activity R56.9 CSF leak at LP site G97.0 Double vision H53.2 Dizziness R42 Additional Codes LAUREN-7 Assessment Billing - LAUREN-7 Assessment Tool: LAUREN-7 Assessment 43953 ([id number]) PHQ-9 - 32008 - PHQ-9 Billing: Yes ([id number]) Assessment & Plan Assessment & Plan (1) Depression with anxiety: Code(s): F41.8 - Other specified anxiety disorders Category: Medical Plan: Ongoing?anxiety?and?depression. She?used?lorazepam?once?so?far?and?this?was?helpful Encouraged?her?to?continue?taking?bupropion?and?she?use?her?hydroxyzine?and?clonidine?as?well Use?lorazepam?for?severe?symptoms. Followed?by?therapist?and?psychologist. (2) Seizure-like activity: Code(s): R56.9 - Unspecified convulsions Category: Medical Plan: Likely?functional?though?patient?did?have?recent?CSF?leak Follow-up?with?Neurology Follow-up?with?therapist (3) CSF leak at LP site: Code(s): G97.0 - Cerebrospinal fluid leak from spinal puncture Category: Medical Plan: Patient?had?CSF?leak?at?LP?site. She?is?still?complaining?of?back?pain?and?headaches I?am?uncertain?that?these?are?related?to?her?CSF?leak?which?has?hopefully?resolved. She?does?have?appointments?with?Neurology?though?they?are?still more?than?a?few?weeks?off. She?is?still?complaining?of?severe?pain She?is?using?high?doses?of?oxycodone?and?I?have?encouraged?her?to?keep?trying?to?wean?this?down. Will?continue?to?monitor (4) Double vision: Code(s): H53.2 - Diplopia Category: Medical Plan: Patient?has?had?double?vision?since?her?hospital?visit.??This?has?not?resolved Entertainment Manager?did?not?find?anything?wrong?with?eyes?or?optic?nerves. They?have?referred?her?to?Neurology Checking?MRI?as?vision?has?not?improved.??She?is?still?dizzy?and?having?headaches. Follow-up?with?Neurology (5) Dizziness: Code(s): R42 - Dizziness and giddiness Category: Medical Plan: As?above Orders: Orders MR head/brain wo con Today G97.0 - Cerebrospinal fluid leak from spinal puncture, H53.2 - Diplopia, R51.9 - Headache, unspecified Medications: New meloxicam 15 mg PO DAILY 30 days 30 tabs 2RF
[2024-09-29 10:42] VITALS: BP 108/60; PULSE 82; RESP 14; TEMP 36.9; O2SAT 98; BMI 26.1
--- OUTSIDE RECORDS SUMMARY | 2024-09-29 11:32 | XMS_ITS | Continuity of Care Document ---
Author Name [facility] Organization [facility] Care Team Providers Care Dark Room Attendant Name Role Phone [facility] Unavailable Unavailable Medications Combined list of outpatient [...] ORAL, AUROBINDO PHARM, 100 ea. BOTTLE Active [id number] 2023 20 Pharmac y Data Transac tion Service Facilit y BUSPIRONE HCL (buspirone HCl), 7.5 MG, TABLET, ORAL, OrderlordS PHARMA, 100 ea. BOTTLE Active [id number] 4 2023 180 Pharmac y Data Transac tion Service Facilit y CITALOPRAM HBR (CITALOPRAM HYDROBROMID E), 20MG, TABLET, ORAL, TORRENT PHARMAC, 500 ea. BOTTLE Cancele d [id number] : 2023 0 Pharmac y Data Transac tion Service Facilit y CITALOPRAM HBR (CITALOPRAM HYDROBROMID E), 40MG, TABLET, ORAL, TORRENT PHARMAC, 500 ea. BOTTLE Cancele d [id number] : 2023 0 Pharmac y Data Transac tion Service Facilit y CITALOPRAM HBR (CITALOPRAM HYDROBROMID E), 40MG, TABLET, ORAL, TORRENT PHARMAC, 500 ea. BOTTLE Cancele d [id number] : 2023 0 Pharmac y Data Transac [...] Known Allergies Drug allergy (disorder) active 04/29/2019 [facility] [place] Immunizations Combined list of available immunizations from the Department of Defense and Veterans Affairs facilities. Immunization Series Date Given Administered By Site Reaction Lot Number CVX Code Drug Biological Scientist Status Comments Source COVID-19, mRNA, LNP-S, PF, 30 mcg/0.3 mL dose 2021 BOGDASARIAN, () Not Given COVID-19, mRNA, LNP-S, PF, 30 mcg/0.3 mL dose DoD influenza, injectable, quadrivalent, preservative free 2019 BOGDASARIAN, () Not Given influenza , injectabl e, quadrival ent, preservat claudia free DoD Encounters Combined list of: 1) Encounters from Department of [facility] facilities going backup to the last 18 months, not all [place] inpatient encounters are included; 2) Encounters from the Department [facility] facilities going backup to 280 months. Location Location Details Encounter Type Encounter Number Reason For Visit Attending Provider ADM Date DC Date Status Disposition Source [facility] Spring quijano([facility] Team 1) TELE CONSULT [id number] Notes Entered by: Gibson GHOSH 09 Jul 2017 1433 ------- ------- ------- ------- -- REFERRA L to request ing a referra l to OB 12 weeks pregnan t confirm SEE BELOW NIKIA FONSECA 07/09 Referred for Appointment [facility] Juliano tierney([facility] Team 1) Procedures Combined list of: 1) Procedures from [facility] facilities going back up to thelast 18 months, not all [place] non-surgical procedures are included; 2) All procedures from the Department [facility] facilities. Procedure Procedure Type Code Date Perfomer [...] of future care activities from Department of [facility] and Veterans Affairs facilities (e.g., assessment and plan notes, appointments, orders, and referrals). Additional future care activities may be listed in the Plan of Care section. Result Assessment and Plan Date Source Assessment and Plan No data available for this section 09/29/2024 Ambulatory Pharmacy Functional Status Combined list of recent functional and cognitive assessments recorded at [facility] and [facility] Functional [place] Measurement (FIM) Scale: 1 = Total Assistance (Subject = 0% +), 2 = Maximal Assistance (Subject = 25% +), 3 = Moderate Assistance (Subject = 50% +), 4 = Minimal Assistance (Subject = 75% +), 5 = Supervision, 6 = Modified [place] (Device), 7 = Complete [place] (Timely, Safely). Assessment Date/Time Source Assessment Type Assessment Skill Assessment Score Assessment Details No data available for this section
--- OUTSIDE RECORDS SUMMARY | 2024-09-29 11:32 | XMS_ITS | Clinical Summary ---
Author Organization [facility] Address [address] [place] [address] Care Team Providers Care Pipe Liner Name Role Phone Alberto Arias MD Primary [...] RESULTING AGENCY - 12/14/2020 10:45 AM EDT [id number] THINPREP PAP, IMAGED: NEGATIVE FOR SQUAMOUS INTRAEPITHELIAL [...] Recently Relevant to Health Maintenance Care Teams Pipe Liner Relationship Specialty Start Date End Date Alberto Arias MD [address] [place] [address] JOYCELYN MYERS [id number] PCP - General Internal Medicine 01/07/20
== END 2024-09-29 11:19 | disposition home or self-care (01) ==
LOC: HO.HMCFM 10:32
PROVIDERS: PCP Family Medicine; Visit Provider Family Medicine
DX: F41.8 Other specified anxiety disorders (principal); R56.9 Unspecified convulsions; G97.0 Cerebrospinal fluid leak from spinal puncture; H53.2 Diplopia; R42 Dizziness and giddiness

== ENCOUNTER → 2024-09-29 10:31 | Outpatient (BNVA) | payer OTHER, SELFPAY | PROVIDERS: PCP Family Medicine; Visit Provider Family Medicine | DX: F41.8 Other specified anxiety disorders (principal); R56.9 Unspecified convulsions; G97.0 Cerebrospinal fluid leak from spinal puncture; H53.2 Diplopia; R42 Dizziness and giddiness | CPT/HCPCS: 96127; 99212 ==

== ENCOUNTER 2024-10-30 10:11 | Outpatient (REF) | payer OTHER, SELFPAY ==
--- NOTE | ~2024-10-30 | MR_ITS ---
EXAMINATION: MR BRAIN WITHOUT CONTRAST CLINICAL INFORMATION: Diplopia COMPARISON: MRI from an outside institution dated August 31, 2024. TECHNIQUE: MRI of the brain was obtained using routine sequences without contrast. FINDINGS: No restricted diffusion. No acute intracranial hemorrhage, mass effect, midline shift, hydrocephalus or herniation. Suprasellar cistern measures 7.5 mm. Prepontine cistern measures 5.7 mm. Mamillary pontine distance: 6.8 mm. Gil-white matter differentiation is normal. Posterior cranial fossa contents demonstrated no signal abnormality or gross masses. Craniocervical junction demonstrates normal position of the cerebellar tonsils. Sellar/suprasellar region demonstrated no gross masses or signal abnormality. Flow-void signal within the main cerebral vessels is normal. Mucosal thickening without air-fluid levels in the paranasal sinuses. Hyperintense T2 signal within the deep fat planes of the premaxilla and midline nose MR/MR head/brain wo con IMPRESSION: Sher score 0. No acute brain abnormality.. Electronically signed by: Abel Reyes MD 11/01/2024 08:16 AM EDT
--- OUTSIDE RECORDS SUMMARY | 2024-10-30 10:14 | XMS_ITS | Clinical Summary ---
Author Organization [facility] Address [address] [place] [address] Care Team Providers Care Oil Inspector Name Role Phone Alberto Arias MD [...] RESULTING AGENCY - 12/14/2020 10:45 AM EDT [id number] THINPREP PAP, IMAGED: NEGATIVE FOR SQUAMOUS INTRAEPITHELIAL [...] Recently Relevant to Health Maintenance Care Teams Oil Inspector Relationship Specialty Start Date End Date Alberto Arias MD [address] [place] [address] JOYCELYN MYERS [id number] PCP - General Internal Medicine 01/07/20
== END 2024-10-30 10:12 | disposition home or self-care (01) ==
LOC: HO.MRI 10:11
PROVIDERS: Visit Provider Family Medicine
DX: H53.2 Diplopia (principal); G97.0 Cerebrospinal fluid leak from spinal puncture; R51.9 Headache, unspecified
CPT/HCPCS: 70551

== ENCOUNTER → 2024-10-30 10:18 | Outpatient (BNV) | payer OTHER, SELFPAY | PROVIDERS: Visit Provider Radiology Diagnostic Radiology | DX: H53.2 Diplopia (principal) | CPT/HCPCS: 70551 ==

== ENCOUNTER 2024-11-09 13:50 | Outpatient (AMB) | payer OTHER, SELFPAY ==
--- NOTE | 2024-11-09 14:04 | MHC.PC.OV ---
Vital Signs 11/09/24 14:13 Height 5 ft 1 in Weight 140 lb 2 oz BMI 26.5 BP 100/70 Blood Pressure Location Rt brachial Position Sitting Respiration 14 Pulse 87 Pulse Source Pulse Oximeter Temp 98.7 F Temp Source Oral Pulse Oximetry (%) 96 Oxygen Delivery Method Room Air Intake Visit Reasons: Paperwork follow up Intake Note: [facility] Injection Molding Machine Setter Required: No Allergies No Known Allergies Allergy (Verified 11/09/24 14:09) Tobacco use date assessed: 09/29/24 Dental Screening Dental Screen Date: 08/19/23 HPI Paperwork follow up HPI Details 29 y/o female presents to f/u headaches, vision changes and MRI. Also f/u on anxiety/depression and paperwork. Had encouraged her to continue taking bupropion, hydroxyzine and clonidine. Had recommended her to use lorazepam for severe symptoms. Ongoing issues with vision changes and has an appt. with a specialist. 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 Father No problems noted. 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 Current occupational exposures/hazards: No Sexual orientation: Straight/Heterosexual Gender identity: Female Cognitive needs: No (Forgetful) Hearing needs: No Vision needs: No Questionnaire Thrive Questionnaire Date Thrive assessed: 07/18/24 I am a: Patient What is your living situation today?: I have a steady place to live Within the past 12 months, did the food you bought not last and you didn't have the money to get more?: Never true Within the past 12 months, did you worry whether your food would run out before you got money to buy more?: Never true Do you have trouble paying for medicines?: No Do you have trouble getting transportation to medical appointments?: No Do you have trouble paying your heating and electricity bill?: No Do you have trouble taking care of your child, family member or friend?: No Do you have trouble with day-to-day activities such as bathing, preparing meals, shopping, managing finances, etc.?: No Are you currently unemployed and looking for a job?: No Are you interested in more education?: No Please select the resources that you would like help with: None Currently or been in a relationship where the following occur: No concerns reported THRIVE Score: 0 LAUREN-7 AMB Questionnaire LAUREN-7 Date LAUREN - 7 assessed: 09/29/24 Source: Developed by Drs. Ross Rojas, Ora Granda, Fabián Wells and colleagues, with an educational lev from [employer]. Review of Systems Const Denies chills, Denies fatigue, Denies fever(s), Denies headache(s) and Denies weakness ENT Denies dizziness and Denies headache(s) Card Denies dyspnea Resp Denies cough, Denies dyspnea, Denies wheezing and Denies other (shortness of breath) Musc Denies numbness and Denies tingling Neuro Denies dizziness, Denies headache(s), Denies numbness, Denies tingling and Denies weakness Psych Denies anxiety and Denies depression Endo Denies fatigue Aller/Immun Denies wheezing Physical exam (Primary Care) Vital Signs: Last Vital Signs Temp 98.7 F 11/09/24 14:13 Pulse 87 11/09/24 14:13 Resp 14 11/09/24 14:13 BP 100/70 11/09/24 14:13 Pulse Ox 96 11/09/24 14:13 Oxygen Delivery Method Room Air 11/09/24 14:13 BMI result Body Mass Index 26.5 Tobacco/Smoking Status: Tobacco use Status Tobacco use date assessed 09/29/24 11/09/24 14:07 Patient Tobacco Use Status Never used Tobacco 11/09/24 14:07 e-Cigarette/Vaping Use Never Used 11/09/24 14:07 Thrive Assessment: Date of Thrive Assessment Date Thrive assessed 07/18/24 11/09/24 14:07 Currently or been in a relationship where the following occur: No concerns reported Const General: well developed; No acute distress Nutritional Appearance: well nourished Orientation/consciousness: patient oriented x3 [facility] Head: Yes normocephalic and Yes atraumatic Eyes General: appearance normal, both eyes and all related structures Pupils: Equal, round and reactive pupils present EOM: EOMs intact bilaterally Resp Effort & Inspection: normal respiratory effort Auscultation: clear to auscultation bilaterally Cardio Rate: regular rate Rhythm: regular rhythm Heart sounds: S1 normal heart sound present, S2 normal heart sound present, no gallops, no murmurs and no rubs Neuro General: patient oriented x3 and gait normal Cranial nerves: Yes Equal, round and reactive pupils present Psych Affect: normal affect Coding Level of Care Code Est Pt Level 4 (30769) Diagnoses Depression with anxiety F41.8 Headache R51.9 Seizure-like activity R56.9 Double vision H53.2 Assessment & Plan Assessment & Plan (1) Depression with anxiety: Code(s): F41.8 - Other specified anxiety disorders Category: Medical Plan: Still?scoring?very?high?for?WHO?disability?scoring?performed?today.??See?forms Filled?out?disability?paperwork?for?patient?to?keep?her?out?ongoing?through?today?until?December??with?a?tentative?return To?work?date?of?December?. Discussed?with?patient?that?her?therapist?can?continue?to?evaluate?for?this?going?forward.??Patient?understands. (2) Headache: Code(s): R51.9 - Headache, unspecified Category: Medical Plan: Has?appointment?with?Neurology (3) Seizure-like activity: Code(s): R56.9 - Unspecified convulsions Category: Medical Plan: Has?appointment?with?Neurology (4) Double vision: Code(s): H53.2 - Diplopia Category: Medical Plan: Still?has?diplopia She?has?an?upcoming?appointment?with?a?specialist?and?will?also?follow-up?with?the?neurologist. Medications: New mecobalamin (vitamin B12) 500 mcg PO DAILY 90 tabs 2RF 90 days Discontinued meloxicam Discontinued Reason: Patient Completed Course 15 mg PO DAILY 30 days 30 tabs 2RF oxycodone Partial Fill upon patient request. Discontinued Reason: Patient no longer taking 5 mg PO Q8H 5 days 15 tabs 0RF
[2024-11-09 14:13] VITALS: BP 100/70; PULSE 87; RESP 14; TEMP 37.1; O2SAT 96; BMI 26.5
--- OUTSIDE RECORDS SUMMARY | 2024-11-09 16:15 | XMS_ITS | Clinical Summary ---
Author Organization [facility] Address [address] [place] [address] Care Team Providers Care Viscera Washer Name Role Phone Alberto Arias MD Primary Care Provider [phone] Surgical History Surgery Date Site/Laterality Comments OTHER [...] RESULTING AGENCY - 12/14/2020 10:45 AM EDT [id number] THINPREP PAP, IMAGED: NEGATIVE FOR SQUAMOUS INTRAEPITHELIAL [...] Recently Relevant to Health Maintenance Care Teams Viscera Washer Relationship Specialty Start Date End Date Alberto Arias MD [address] [place] [address] JOYCELYN MYERS [id number] PCP - General Internal Medicine 01/07/20
== END 2024-11-09 15:34 | disposition home or self-care (01) ==
LOC: HO.HMCFM 13:51
PROVIDERS: Visit Provider Family Medicine
DX: F41.8 Other specified anxiety disorders (principal); R51.9 Headache, unspecified; R56.9 Unspecified convulsions; H53.2 Diplopia

== ENCOUNTER → 2024-11-09 13:50 | Outpatient (BNVA) | payer OTHER, SELFPAY | PROVIDERS: Visit Provider Family Medicine | DX: F41.8 Other specified anxiety disorders (principal); R51.9 Headache, unspecified; R56.9 Unspecified convulsions; H53.2 Diplopia | CPT/HCPCS: 99212 ==

== ENCOUNTER 2024-12-20 10:30 | Outpatient (AMB) | payer OTHER, SELFPAY ==
[2024-12-20 10:36] VITALS: BP 106/64; PULSE 90; RESP 18; TEMP 36.2; O2SAT 98; BMI 26.9
--- NOTE | 2024-12-20 10:36 | MHC.PC.OV ---
Vital Signs 12/20/24 10:36 Height 5 ft 1 in Weight 142 lb 8 oz BMI 26.9 BP 106/64 Blood Pressure Location Rt brachial Position Sitting Respiration 18 Pulse 90 Pulse Source Pulse Oximeter Temp 97.2 F Temp Source Temporal Artery Scan Pulse Oximetry (%) 98 Oxygen Delivery Method Room Air Intake Visit Reasons: f/u seizure like activities, chronic conditions Allergies No Known Allergies Allergy (Verified 12/20/24 10:39) Tobacco use date assessed: 12/20/24 Dental Screening Dental Screen Date: 12/20/24 Did you have a dental visit in the last 12 months?: Yes Did you have a dental problem in the last 6 months where you did not have access to dental care?: No Was dental information given to patient?: Patient has dentist HPI f/u seizure like activities, chronic conditions HPI Details 29 y/o female presents to f/u chronic conditions such as seizure like activity, depression/anxiety. Had seen Neurology 11/16/24. They note double vision likely a behavioral health issue. She notes she had been following up with ophthalmology for blurriness and follows up with them in February. EMG nerve conduction study was ordered. Had went over EEG with pt - captured one of her typical episodes which was not epileptic. PHQ-9 22, LAUREN-7 21 today. 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 Father No problems noted. 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 1. Little interest or pleasure in doing things: nearly every day 2. Feeling down, depressed, or hopeless: nearly every day 3. Trouble falling or staying asleep, or sleeping too much: nearly every day 4. Feeling tired or having little energy: nearly every day 5. Poor appetite or overeating: nearly every day 6. Feeling bad about yourself - or that you are a failure or have let yourself or your family down: nearly every day 7. Trouble concentrating on things, such as reading the newspaper or watching television: nearly every day 8. Moving or speaking so slowly that other people could have noticed. Or the opposite - being so fidgety or restless that you have been moving around a lot more than usual: several days 9. Thoughts that you would be better off or of hurting yourself in some way: not at all Total score: 22 Depression Screening Interpretation: Positive Depression Screening Done: Yes Source: Developed by Drs. Ross Rojas, Ora Granda, Fabián Wells and colleagues, with an educational lev from [employer]. Thrive Questionnaire Date Thrive assessed: 07/18/24 I am a: Patient What is your living situation today?: I have a steady place to live Within the past 12 months, did the food you bought not last and you didn't have the money to get more?: Never true Within the past 12 months, did you worry whether your food would run out before you got money to buy more?: Never true Do you have trouble paying for medicines?: No Do you have trouble getting transportation to medical appointments?: No Do you have trouble paying your heating and electricity bill?: No Do you have trouble taking care of your child, family member or friend?: No Do you have trouble with day-to-day activities such as bathing, preparing meals, shopping, managing finances, etc.?: No Are you currently unemployed and looking for a job?: No Are you interested in more education?: No Please select the resources that you would like help with: None Currently or been in a relationship where the following occur: No concerns reported THRIVE Score: 0 AUDIT C Alcohol Use Questionnaire (AUDIT-C) 1. How often do you have a drink containing alcohol?: Never 3. How often do you have six or more drinks on one occasion?: Never Total Score: 0 LAUREN-7 AMB Questionnaire LAUREN-7 Date LAUREN - 7 assessed: 09/29/24 Feeling nervous, anxious, or on edge: 3 = Nearly every day Not being able to stop or control worryin = Nearly every day Worrying too much about different things: 3 = Nearly every day Trouble relaxin = Nearly every day Being so restless that it is hard to sit still: 3 = Nearly every day Becoming easily annoyed or irritable: 3 = Nearly every day Feeling afraid as if something awful might happen: 3 = Nearly every day Total LAUREN-7 score (0-4 normal; 5-9 mild; 10-14 moderate; 15-21 severe): 21 Source: Developed by Drs. Ross Rojas, Ora Granda, Faibán Wells and colleagues, with an educational lev from [employer]. Review of Systems Const Denies chills, Denies fatigue, Denies fever(s), Denies headache(s) and Denies weakness ENT Denies dizziness and Denies headache(s) Card Denies dyspnea Resp Denies cough, Denies dyspnea, Denies wheezing and Denies other (shortness of breath) Musc Denies numbness and Denies tingling Neuro Denies dizziness, Denies headache(s), Denies numbness, Denies tingling and Denies weakness Psych Reports anxiety and Reports depression Endo Denies fatigue Aller/Immun Denies wheezing Physical exam (Primary Care) Vital Signs: Last Vital Signs Temp 97.2 F 12/20/24 10:36 Pulse 90 12/20/24 10:36 Resp 18 12/20/24 10:36 BP 106/64 12/20/24 10:36 Pulse Ox 98 12/20/24 10:36 Oxygen Delivery Method Room Air 12/20/24 10:36 BMI result Body Mass Index 26.9 Tobacco/Smoking Status: Tobacco use Status Tobacco use date assessed 12/20/24 12/20/24 10:41 Patient Tobacco Use Status Never used Tobacco 12/20/24 10:41 e-Cigarette/Vaping Use Never Used 12/20/24 10:41 PHQ-9: PHQ-9 Score PHQ-9: Total score 22 12/20/24 10:41 Depression Screening Interpretation: Positive Thrive Assessment: Date of Thrive Assessment Date Thrive assessed 07/18/24 12/20/24 10:41 Currently or been in a relationship where the following occur: No concerns reported Const General: well developed; No acute distress Nutritional Appearance: well nourished Orientation/consciousness: patient oriented x3 HENMT Head: Yes normocephalic and Yes atraumatic Eyes General: appearance normal, both eyes and all related structures Pupils: Equal, round and reactive pupils present EOM: EOMs intact bilaterally Resp Effort & Inspection: normal respiratory effort Auscultation: clear to auscultation bilaterally Cardio Rate: regular rate Rhythm: regular rhythm Heart sounds: S1 normal heart sound present, S2 normal heart sound present, no gallops, no murmurs and no rubs Neuro General: patient oriented x3 and gait normal Cranial nerves: Yes Equal, round and reactive pupils present Psych Affect: normal affect Coding Level of Care Code Est Pt Level 4 (31263) Diagnoses Depression with anxiety F41.8 Post traumatic stress disorder F43.10 Seizure-like activity R56.9 Double vision H53.2 Assessment & Plan Assessment & Plan (1) Depression with anxiety: Code(s): F41.8 - Other specified anxiety disorders Category: Medical (2) Post traumatic stress disorder: Code(s): F43.10 - Post-traumatic stress disorder, unspecified Category: Medical (3) Seizure-like activity: Code(s): R56.9 - Unspecified convulsions Category: Medical (4) Double vision: Code(s): H53.2 - Diplopia Category: Medical Plan Patient presents to follow-up seizure-like activity and double vision as well as other neurologic complaints and follow-up anxiety/depression. She has seen Ophthalmology and patient was corrected with glasses which has improved some of her symptoms but she still notes some vision problems. Neurology has concluded that the double vision is not neurologic. She also has some tingling weakness in her hands. They plan EMG to rule out nerve issue. They do speculate that this could secondary to anxiety as well. Patient has ongoing visits with psychiatry therapy. I encouraged this. I had extended her disability paperwork through mid December. As she now has a specialist for neurology and has ongoing care with a psychiatrist and therapist, I did express to her that, once again, her management of these issues should be with the specialists and they should determine when she is ready to return to work. Patient understands.
--- OUTSIDE RECORDS SUMMARY | 2024-12-20 11:13 | XMS_ITS | Continuity of Care Document ---
Author Name [facility] Organization [facility] Care Team Providers Care Music Grapher Name Role Phone [facility] Unavailable Unavailable Medications Combined list of outpatient [...] 1 Ordered 2021 No Facilit y Access CITALOPRAM HBR (CITALOPRAM HYDROBROMID E), 20MG, TABLET, ORAL, TORRENT PHARMAC, 500 ea. BOTTLE Cancele d [id number] : 2023 0 Pharmac y Data Transac tion Service Facilit y CITALOPRAM HBR (CITALOPRAM HYDROBROMID E), 40MG, TABLET, ORAL, TORRENT PHARMAC, 500 ea. BOTTLE Cancele d [id number] : 2023 0 Pharmac y Data Transac [...] 2021 No Facilit y Access FLUZONE QUAD [id number] (influenza virus vaccine quadrival 8411-4023(6 mos and up)/PF), 60MCG/.5ML, FLUZONE QUAD 1 (influen za virus vaccine quadriva l (6 [...] Combined list of allergies from [facility] and [facility] facilities. It does not include entries that were removed or entered in error. Substance Category Reaction Severity Reaction type Status Date Reported Comments Source No Known Allergies Drug allergy (disorder) active 04/29/2019 [facility] Immunizations Combined list of available immunizations from the [facility] and [facility] facilities. Immunization Series Date Given Administered By Site Reaction Lot Number CVX Code Drug Bleach Supervisor Status Comments Source COVID-19, mRNA, LNP-S, PF, 30 mcg/0.3 mL dose [facility] () Not Given COVID-19, mRNA, LNP-S, PF, 30 mcg/0.3 mL dose [facility] influenza, injectable, quadrivalent, preservative free 2019 [facility], () Not Given influenza , injectabl e, quadrival ent, preservat claudia free DoD Encounters Combined list of: 1) Encounters from Department of Veterans Affairs facilities going backup to the last 18 months, not all VA inpatient encounters are included; 2) Encounters from the [facility] of [facility] facilities going backup to 280 months. Location Location Details Encounter Type Encounter Number Reason For Visit Attending Provider ADM Date DC Date Status Disposition Source [facility] Spring quijano([facility] Team 1) TELE CONSULT [id number] Notes Entered by: Gibson GHOSH 09 Jul 2017 1433 ------- ------- ------- ------- -- REFERRA L to request ing a referra l to OB 12 weeks pregnan t confirm SEE BELOW FONSECANIKIA Yuridia 07/09 Referred for Appointment [facility] Juliano niall([facility] Team 1) Procedures Combined list of: 1) Procedures from [facility] facilities going back up to thelast 18 months, not all [place] non-surgical procedures are included; 2) All procedures [...] Plan No data available for this section 12/20/2024 Ambulatory Pharmacy Functional Status Combined list of recent functional and cognitive assessments recorded at [facility] Functional [place] Measurement (FIM) Scale: 1 = Total Assistance (Subject = 0% +), 2 = Maximal Assistance (Subject = 25% +), 3 = Moderate Assistance (Subject = 50% +), 4 = Minimal Assistance (Subject = 75% +), 5 = Supervision, 6 = Modified [place] (Device), 7 = Complete [place] (Timely, Safely). Assessment Date/Time Source Assessment Type Assessment Skill Assessment Score Assessment Details No data available for this section
--- OUTSIDE RECORDS SUMMARY | 2024-12-20 11:14 | XMS_ITS | Clinical Summary ---
Author Organization [facility] Address [address] [place] [address] Care Team Providers Care Type Inspector Name Role Phone Alberto Arias MD [...] of 3 - 19+ 3-dose series) 10/01/2014 HIV Screening 04/28/2022 Hepatitis C Screening 04/28/2022 Social Influencers of Health Screening 04/28/2022 Cervical Cancer Screening: P ap Smear 12/13/2023 12/12/2020 COVID-19 Vaccine (1 - 2023-2 5 season) 2024 Depression Screening 05/19/2024 Influenza Vaccine (#1) 2025 HIB Vaccines Aged Out No longer [...] 5 Years) and At-Risk Patients (6 to 49 Years) Aged Out No longer eligi ble [...] RESULTING AGENCY - 12/14/2020 10:45 AM EDT [id number] THINPREP PAP, IMAGED: NEGATIVE FOR SQUAMOUS INTRAEPITHELIAL LESION AND MALIGNANCY . NGUYEN DAMON(ASCP) (CASE ELECTRONICALLY SIGNED 12 13 2020) ADEQUACY: SATISFACTORY ENDOCERVICAL/TRANSFORMATION ZONE COMPONENT PRESENT. SOURCE: THINPREP PAP HPV IF ASCUS, CERVICAL, IMAGED CLINICAL INFORMATION: HPV IF DIAGNOSIS OF ASCUS. Z12.4 us Earnest Valderrama CNM LAB CYTOLOGY ORDERABLES Final Result HISTORICAL TESTING LAB RESULTING AGENCY from Last 3 Months or Most Recently Relevant to Health Maintenance Care Teams Type Inspector Relationship Specialty Start Date End Date Alberto Arias MD [address] [place] [address] JOYCELYN MYERS [id number] PCP - General Internal Medicine 01/07/20
--- OUTSIDE RECORDS SUMMARY | 2024-12-20 11:14 | XMS_ITS | Clinical Summary ---
Author Organization [facility] Address [address] [id number] Phone Care Team Providers Care Relief Master Name Role Phone Pcp, Unknown Primary Care Provider Unavailabl e Social History Tobacco Use Types Packs/Day Years Used Date Smoking Tobacco: Never Assessed Comments Unknown Sex and Gender Information Value Date Recorded Sex Assigned at Not on file Legal Sex Female 11:07 AM EDT Gender Identity Not on file Sexual Orientation Not on file Plan of Treatment Not on file Medical Devices Not on file Care Teams Relief Master Relationship Specialty Start Date End Date Pcp, Unknown PCP - General 09/01/24 Additional Source Comments The information contained in this document represents components of the legal health record. It is not the complete legal health record.[facility]
== END 2024-12-20 11:33 | disposition home or self-care (01) ==
LOC: HO.HMCFM 10:31
PROVIDERS: Visit Provider Family Medicine
DX: F41.8 Other specified anxiety disorders (principal); F43.10 Post-traumatic stress disorder, unspecified; R56.9 Unspecified convulsions; H53.2 Diplopia

== ENCOUNTER → 2024-12-20 10:30 | Outpatient (BNVA) | payer OTHER, SELFPAY | PROVIDERS: Visit Provider Family Medicine | DX: F41.8 Other specified anxiety disorders (principal); F43.10 Post-traumatic stress disorder, unspecified; R56.9 Unspecified convulsions; H53.2 Diplopia | CPT/HCPCS: 99212 ==

== ENCOUNTER 2025-02-25 11:16 | Outpatient (REF) | payer OTHER, SELFPAY ==
[2025-02-25 14:13] LABS: MANUAL DIFF FLAG NO
[2025-02-25 14:23] LABS: Hematocrit 41.0 % (37.0-47.0); Hemoglobin 13.4 g/dl (12.0-16.0); Imm Gran Abs Auto 0.02 X10*3/uL (0.00-0.03); Imm Gran Pct Auto 0.3 % (0.0-0.4); Lymphocytes Absolute Auto 2.4 X10*3/uL (1.2-4.9); Mean Corpuscular HGB Conc 32.7 g/dl (31.0-35.0); Mean Corpuscular Hemoglobin 28.9 pg (27.0-33.0); Mean Corpuscular Volume 88.4 fL (80.0-98.0); NRBC Abs Auto 0.000 X10*3/uL (0.0-0.012); NRBC Pct Auto 0.0 /100WBC (0.0-0.2); Platelet Count 356 X10*3/uL (160-400); Red Blood Count 4.64 X10*6/uL (4.20-5.50); White Blood Count 8.0 X10*3/uL (4.8-10.8)
[2025-02-25 14:27] LABS: INTERNATIONAL NORM RATIO 1.0 (0.9-1.1); Prothrombin Time 11.9 SEC (10.9-12.4)
[2025-02-25 14:29] LABS: Appearance Urine Clear; Glucose Urine UA Negative (Negative); PH 5.5 (5.0-9.0); Specific Gravity - Urine <= 1.005 (1.005-1.025)
[2025-02-25 14:30] LABS: Partial Thromboplastin Time 30.5 SEC (26.7-34.1)
[2025-02-25 15:01] LABS: Folate 11.9 ng/mL (> or = 4.0); Vitamin B12 560 pg/mL (200-900)
[2025-02-25 17:19] LABS: Alanine Aminotransferase 21 U/L (0-31); Albumin Level 4.8 g/dL (3.5-5.0); Alkaline Phosphatase 50 U/L (39-117); Anion Gap 12 (12-20); Aspartate Amino Transferase 17 U/L (5-31); Blood Urea Nitrogen 10 mg/dL (9-16); Calcium 10.0 mg/dL (8.4-10.2); Carbon Dioxide 24 mmol/L (22-29); Chloride 105 mmol/L (96-108); Estimated Glomerular Filt Rate > 60; Potassium 4.2 mmol/L (3.3-5.1); Sodium 137 mmol/L (135-145); Total Protein 7.6 g/dL (6.5-8.0)
[2025-02-26 08:34] LABS: HIV Num 1 0.05 S/CO (0.00-0.99)
== END 2025-02-25 11:17 | disposition home or self-care (01) ==
LOC: HO.WFDLDS 11:16
PROVIDERS: Visit Provider Family Medicine
DX: Z00.00 Encounter for general adult medical examination without abnormal findings (principal); Z51.81 Encounter for therapeutic drug level monitoring; Z01.818 Encounter for other preprocedural examination; Z11.4 Encounter for screening for human immunodeficiency virus [HIV]; Z11.3 Encounter for screening for infections with a predominantly sexual mode of transmission; I10 Essential (primary) hypertension; E53.8 Deficiency of other specified B group vitamins; E55.9 Vitamin D deficiency, unspecified
CPT/HCPCS: 36415; 80053; 81003; 82043; 82306; 82570; 82607; 82746; 84443; 84702; 85025; 85610; 85730; 87389